=== PATIENT | male | born 1960 | race Caucasian/White ===

== ENCOUNTER 2018-07-11 13:41 | Inpatient (IN) ==
[2018-07-11] MEDS ORDERED: Ipratropium/Albuterol Neb 3 ML IH ONE (14:28)
[2018-07-11] MEDS ORDERED: methylPREDNISolone 125 MG/2 ML VIAL IVP ONE (14:29)
[2018-07-11] MEDS ORDERED: Isovue-370 500 ML BOTTLE IVP ONE ×2 (14:29→16:00)
[2018-07-11] MEDS ORDERED: 0.9 % Sodium Chloride 500 ML IVC ONE (14:31)
[2018-07-11] MEDS ORDERED: *HR* FentaNYL (PF) 100 MCG/2 ML VIAL IVP ONE (14:37)
--- NOTE | 2018-07-11 14:42 | Emergency Department Note ---
Disposition Clinical Impression: Weakness, Left arm weakness, Thrombocytopenia, Chinchilla's palsy, Mediastinal mass Pneumonia Qualifiers: Pneumonia type: due to unspecified organism Laterality: unspecified laterality Lung location: unspecified part of lung Qualified Code(s): J18.9 - Pneumonia, unspecified organism COPD (chronic obstructive pulmonary disease) Qualifiers: COPD type: unspecified COPD Qualified Code(s): J44.9 - Chronic obstructive pulmonary disease, unspecified Shoulder pain Qualifiers: Chronicity: unspecified Laterality: left Qualified Code(s): M25.512 - Pain in left shoulder Disposition: Admitted As Inpatient Condition: Fair Time of Disposition: 17:43 General Adult HPI - General Chief complaint: ED Weakness Stated complaint: "blood infection, bells palsy" Time Seen by Provider: 07/11/18 14:11 Source: patient, family Mode of arrival: wheelchair Limitations: no limitations Nursing Notes Reviewed: Yes Vital Signs Reviewed: Yes - History of Present Illness HPI Narrative: 58-year-old male with history of COPD, hypertension, arthritis with recent hospitalization for pneumonia and thrombocytopenia presents for evaluation of weakness. The stated chief complaint is blood infection however the patient does not have a prior history of positive blood cultures. Patient states he did have a recent admitted hospital course were he was diagnosed with possible pneu monia and was treated with antibiotics. Patient is also found to have thrombocytopenia of unknown etiology. Patient was complaining of arthralgias at that time. 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 Patient states since then his symptoms have not improved and is only worsened. States that he feels weak primarily in the legs as well as left upper extremity. Patient notes diffuse myalgias and pain primarily in the shoulders. Denies a prior history of strokes. Patient was recently taken off his Plavix as he does have known coronary artery disease. Patient states he has been sweating but denying any chest pain only complaining of cough and shortness of breath and shoulder pain. Pain Scale: 10 - Related Data Previous Rx's Medication Instructions Recorded Acetaminophen [Pain Reliever] 500 mg PO Q6H PRN #120 tablet 06/29/18 Albuterol Sulfate [Albuterol 2 puff IH Q4HR PRN #1 inhaler 06/29/18 Inhaler] Aspirin Enteric Coated [Aspirin EC] 81 mg PO DAILY #30 tablet. 06/29/18 Ipratropium/Albuterol Neb [Duoneb] 3 ml IH Q6H PRN #120 vial 06/29/18 Isosorbide MONOnitrate (24 HR) 30 mg PO DAILY #30 tab.er.24h 06/29/18 [Imdur] Lisinopril/Hydrochlorothiazide 1 tab PO DAILY #30 tablet 06/29/18 [Zestoretic 20-25 mg Tablet] Loratadine [Claritin] 10 mg PO DAILY #30 tablet 06/29/18 Metoprolol Tartrate 50 mg PO DAILY #30 tablet 06/29/18 Multivitamin [Daily Multiple 1 tab PO DAILY #30 tablet 06/29/18 Vitamin] Omeprazole [PriLOSEC] 20 mg PO DAILY #30 capsule.dr 06/29/18 Simvastatin [Zocor] 40 mg PO DAILY #30 tablet 06/29/18 Famciclovir 500 mg PO Q8H #21 tab 07/01/18 Allergies Allergy/AdvReac Type Severity Reaction Status Date / Time doxycycline AdvReac See Verified 07/11/18 13:53 Comments Penicillins AdvReac Hives Verified 07/11/18 13:53 Sulfa (Sulfonamide AdvReac NOSE BLEEDS Verified 07/11/18 13:53 Antibiotics) tetracycline [Tetracycline] AdvReac Difficulty Verified 07/11/18 13:53 Breathing All systems ED: reviewed and negative except as stated. Cardiovascular: Denies: chest pain Respiratory: Reports: cough, dyspnea Gastrointestinal: Denies: abdominal pain, nausea, vomiting Past Medical History - Past Medical History Source: patient Medical history: Reports: arthritis, COPD, hyperlipidemia, hypertension, other Surgical history: Reports: sinus surgery, tonsillectomy Psychiatric history: Reports: depression - Social History Smoking Status: Current every day smoker Smokeless Tobacco Status: No Alcohol use: Reports: none Drug use: Reports: none Physical Exam - General Limitations: no limitations General appearance: alert, other (Diaphoretic) - Head Head exam: atraumatic, normocephalic, normal inspection - Eye Eye exam: Present: normal appearance, PERRL, EOMI. Absent: nystagmus - ENT ENT exam: normal exam, normal oropharynx, mucous membranes moist - Expanded ENT Exam External ear exam: Present: normal external inspection Nose exam: negative: rhinorrhea Mouth exam: Present: normal external inspection Teeth exam: Present: normal inspection Throat exam: Present: normal inspection - Chest Chest inspection: Present: normal inspection, symmetric chest wall rise - Respiratory Respiratory exam: Present: wheezes, accessory muscle use, prolonged expiratory phase. Absent: respiratory distress - Cardiovascular Cardiovascular exam: Present: regular rate, normal rhythm. Absent: normal heart sounds - Abdominal Exam Abdominal exam: Present: soft, Non-Tender - Extremities Exam Extremities exam: Present: normal inspection, other (No crepitus the proximal Corky's. Patient has weakness of the left proximal arm.). Absent: pedal edema - Expanded Lower Extremity Exam Neurovascular/Tendon exam: Present: normal capillary refill - Back Exam Back exam: Present: normal inspection - Neurological Exam Neurological exam: Present: alert, oriented X3 - Expanded Neurological Exam Patient oriented to: Present: person, place, time Speech: Present: fluid speech Cranial nerves: EOM function (II, III, IV, ): Normal, facial sensation (V): Normal, facial palsy (VII): Abnormal Right, spinal accessory function (XI): Normal, tongue deviation (XII): Normal Motor strength - LUE: 4/5 Motor strength - RUE: 5/5 Motor strength - LLE: 5/5 Motor strength - RLE: 5/5 Coma Scale Eye Opening: Spontaneous Coma Scale Motor Response: Obeys Commands Coma Scale Verbal Response: Oriented Coma Scale Total: 15 - Skin Skin exam: Present: warm, intact, normal color, diaphoresis. Absent: rash Course Course Narrative: Patient seen and examined. Patient does have recent hospitalization. Patient d oes have evidence of Chinchilla's palsy on external exam however the patient also has other neuro symptoms including proximal left arm weakness. Patient will also get inflammatory markers and CT scan of the head injury of the neck and chest. Patient was not a stroke alert given time of onset of the symptoms of been over the past several weeks. Patient became in today because of progressed to the point where he has difficult to walking and ambulating. - Reevaluation(s) Reevaluation #1: Patient's elevated lactate and white count with productive cough we will treat for the most likely source of infection cover with empiric antibiotics until imaging resulted. Time: 17:01 Reevaluation #2: Patient seen and examined. Patient states his pain is improved. Patient's primary complaining of left shoulder pain. Awaiting CT imaging of the head and cervical spine. Ultimately I believe the patient will likely benefit from MRI of the head and cervical spine. Did discuss the possibility of an LP however the patient does not have any meningitis type symptoms. She was also notably thrombocytopenic during last hospitalization and is only slightly improved during this ED course. I do not believe that obtaining an LP at this time is warranted given the patient's history of recent thrombocytopenia. Time: 18:01 Reevaluation #3: Did update the patient as well as the hospital some of the CT findings that were formally released. Patient's CT does show some John however the patient does not have evidence of infection in his urine. Time: 18:55 - Consultations Consultation #1: I did speak with the [place] radiology guarding preliminary scans of the CT angiogram of the head as well as CT angiogram of the neck CT of the head. Appears be no acute abnormality. Patient was not given any aspirin use history of thrombocytopenia. Time: 18:26 Vital Signs Temperature 98.8 F 07/11/18 13:53 Pulse Rate 93 07/11/18 13:53 Respiratory Rate 18 07/11/18 13:53 Blood Pressure 127/82 07/11/18 13:53 O2 Sat by Pulse Oximetry 93 07/11/18 13:53 Temperature 98.8 F 07/11/18 13:53 Pulse Rate 79 07/11/18 17:30 Respiratory Rate 16 07/11/18 17:30 Blood Pressure 130/80 07/11/18 17:30 O2 Sat by Pulse Oximetry 94 07/11/18 17:30 Oxygen Delivery Oxygen Delivery Room Air Medical Decision Making - [facility] Narrative Medical decision making narrative: Patient presented for concerns of "blood infection" however the patient was recent blood cultures were negative. Patient has multiple complaints one of which including left upper shoulder weakness. Patient also states he felt weak in the legs and did note a fall earlier today. Patient does have a pretty significant recent history requiring oscillation for pneumonia as well as t hrombocytopenia requiring rheumatology as well as hematology consults. Patient's from cytopenia stabilizing slightly improved during the hospital course. Patient was treated with antibiotics. Patient states that he also was diagnosed with Chinchilla's palsy. 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 Patient was also having a cough and complaining of left shoulder pain with proximal muscle weakness. Patient had CT imaging of the chest as well as angios of the head and neck. It appeared to be no acute abnormalities of angios of the head and neck. Patient's CT of the chest did show some mediastinal mass concerning for infe ction versus inflammation and/or neoplasm. Recommended a PET scan. Patient symptoms are not necessarily consistent with any [employer] infection. Given the patient's history of trauma cytopenia LP was not obtained in the ED course. Patient did get aerosols and steroids given his history of COPD with cough based on the patient's lung exam. Patient was also started on broad-spectrum antibiotics given elevated white count lactate in the setting of recent hospitalization covering for presumed clinical pneumonia. Patient would likely benefit from further testing and MRI of the head and cervical spine. There is no concerns for deep tissue infection of the shoulder there is no significant erythema or crepitus noted. Patient does have reproducible muscle skeletal tenderness on exam. Patient's inflammatory markers are mildly elevated. CPK is normal. Patient is neurovascularly intact of the upper extremities. - Medical Records Medical records reviewed: Yes I reviewed the patient's medical records. Impressions: Technically sub-optimal due to poor echocardiographic windows. LVEF 60%. Normal LV chamber size, wall thickness and overall function. Mild segmental left ventricular systolic dysfunction. Grossly normal right ventricular structure and function. Mild aortic stenosis by Doppler. Mean gradient 16 mmHg. No pulmonary hypertension identified. - Lab Data Lab results reviewed: Yes I reviewed the patient's lab results. Result diagrams: 07/11/18 14:59 07/11/18 14:59 Lab Results 07/11/18 07/11/18 07/11/18 Range/Units 14:59 14:59 14:59 WBC (4.3-11.1) K/mcL RBC (4.19-5.50) M/mcL Hgb (12.9-16.9) g/dL Hct (37.5-50.1) % MCV (83.0-100.0) fL MCH (28.0-33.3) pg MCHC (31.6-35.5) g/dL RDW (11.5-14.5) % Plt Count (140-400) K/mcL MPV (9.4-12.4) fL Seg Neutrophils % % Band Neutrophils % (0-4) % Lymphocytes % % Monocytes % % Eosinophils % % Myelocytes % (0) % Promyelocytes % (0) % Blast Cells % (0) % Neutrophils # (1.6-8.9) K/mcL Lymphocytes # (0.6-4.6) K/mcL Monocytes # (0.0-1.3) K/mcL Eosinophils # (0.0-0.6) K/mcL Nucleated RBCs/100 WBC (0) /100 WBC Platelet Estimate (Normal) Immature Plt Fraction (1.1-6.1) % Smear Path Review ESR 4 (0-10) mm/hr PT 12.6 H (9.4-12.1) Seconds INR 1.1 Sodium (136-145) mEq/L Potassium (3.5-5.1) mEq/L Chloride (98-107) mEq/L Carbon Dioxide (23-29) mEq/L BUN (8-23) mg/dL Creatinine (0.70-1.30) mg/dL Est GFR ( Amer) (> 60) Est GFR (Non-Af Amer) (> 60) BUN/Creatinine Ratio (6-26) Glucose (70-105) mg/dL Calculated Osmolality (280-300) Lactic Acid 2.9 H (0.5-2.2) mmol/L Calcium (8.6-10.3) mg/dL Phosphorus (2.7-4.5) mg/dL Magnesium (1.6-2.6) mg/dL Total Bilirubin (0.3-1.0) mg/dL AST (13-39) Units/L ALT (7-52) Units/L Alkaline Phosphatase (34-104) Units/L Creatine Kinase (30-223) Units/L Troponin I (< 0.04) ng/mL C-Reactive Protein (Less than 10) mg/L Serum Total Protein (6.4-8.9) g/dL Albumin (3.5-5.7) g/dL Globulin (2.4-3.5) g/dL Albumin/Globulin Ratio (1.1-2.2) Lipase (11-82) Units/L Urine Color (Yellow) Urine Clarity (Clear) Urine pH (5.0-8.0) pH Units Ur Specific [place] (1.010-1.025) Urine Protein (Neg-Trace) mg/dL Urine Glucose (UA) (Normal) mg/dL Urine Ketones (Negative) mg/dL Urine Blood (Negative) Urine Nitrite (Negative) Urine Bilirubin (Negative) Urine Urobilinogen (Normal) mg/dL Ur Leukocyte Esterase (Negative) Urine Microscopic RBC (0-3) per hpf Urine Microscopic WBC (0-3) per hpf Ur Squamous Epith Cells (None-Few) per lpf Urine Bacteria (None-Few) per hpf Hyaline Casts (None-Few) per lpf Ur Culture Indicated? (NO) Urine Opiates Screen (Plidts=840) ng/mL Ur Barbiturates Screen (Wmhrci=090) ng/mL Ur Phencyclidine Scrn (Cutoff=25) ng/mL Ur Amphetamines Screen (Bypwff=6507) ng/mL U Benzodiazepines Scrn (Lznztk=442) ng/mL Urine Cocaine Screen (Cutoff= 300) ng/mL U Marijuana (THC) Screen (Cutoff = 50) ng/mL Ur Drug Screen Interp 07/11/18 07/11/18 07/11/18 Range/Units 14:59 14:59 17:30 WBC 12.0 H (4.3-11.1) K/mcL RBC 3.49 L (4.19-5.50) M/mcL Hgb 10.6 L (12.9-16.9) g/dL Hct 31.0 L (37.5-50.1) % MCV 88.8 (83.0-100.0) fL MCH 30.4 (28.0-33.3) pg MCHC 34.2 (31.6-35.5) g/dL RDW 14.8 H (11.5-14.5) % Plt Count 71 L (140-400) K/mcL MPV 9.0 L (9.4-12.4) fL Seg Neutrophils % 40.0 % Band Neutrophils % 16.0 H (0-4) % Lymphocytes % 14.0 % Monocytes % 8.0 % Eosinophils % 6.0 % Myelocytes % 8.0 H (0) % Promyelocytes % 4.0 H (0) % Blast Cells % 4.0 H (0) % Neutrophils # 6.7 (1.6-8.9) K/mcL Lymphocytes # 1.7 (0.6-4.6) K/mcL Monocytes # 1.0 (0.0-1.3) K/mcL Eosinophils # 0.7 H (0.0-0.6) K/mcL Nucleated RBCs/100 WBC 4.7 H (0) /100 WBC Platelet Estimate Decreased L (Normal) Immature Plt Fraction 2.4 (1.1-6.1) % Smear Path Review See Below ESR (0-10) mm/hr PT (9.4-12.1) Seconds INR Sodium 132 L (136-145) mEq/L Potassium 3.9 (3.5-5.1) mEq/L Chloride 92 L (98-107) mEq/L Carbon Dioxide 30 H (23-29) mEq/L BUN 25 H (8-23) mg/dL Creatinine 0.81 (0.70-1.30) mg/dL Est GFR ( Amer) > 60 (> 60) Est GFR (Non-Af Amer) > 60 (> 60) BUN/Creatinine Ratio 31 H (6-26) Glucose 91 (70-105) mg/dL Calculated Osmolality 278 L (280-300) Lactic Acid (0.5-2.2) mmol/L Calcium 9.7 (8.6-10.3) mg/dL Phosphorus 3.4 (2.7-4.5) mg/dL Magnesium 1.9 (1.6-2.6) mg/dL Total Bilirubin 0.9 (0.3-1.0) mg/dL AST 53 H (13-39) Units/L ALT 29 (7-52) Units/L Alkaline Phosphatase 70 (34-104) Units/L Creatine Kinase 71 (30-223) Units/L Troponin I < 0.03 (< 0.04) ng/mL C-Reactive Protein 41 H (Less than 10) mg/L Serum Total Protein 5.7 L (6.4-8.9) g/dL Albumin 3.9 (3.5-5.7) g/dL Globulin 1.8 L (2.4-3.5) g/dL Albumin/Globulin Ratio 2.2 (1.1-2.2) Lipase 11 (11-82) Units/L Urine Color Yellow (Yellow) Urine Clarity Clear (Clear) Urine pH 6.5 (5.0-8.0) pH Units Ur Specific [place] > 1.030 H (1.010-1.025) Urine Protein 30 H (Neg-Trace) mg/dL Urine Glucose (UA) Normal (Normal) mg/dL Urine Ketones Negative (Negative) mg/dL Urine Blood Negative (Negative) Urine Nitrite Negative (Negative) Urine Bilirubin Negative (Negative) Urine Urobilinogen Normal (Normal) mg/dL Ur Leukocyte Esterase Negative (Negative) Urine Microscopic RBC 0-3 (0-3) per hpf Urine Microscopic WBC 0-3 (0-3) per hpf Ur Squamous Epith Cells Moderate H (None-Few) per lpf Urine Bacteria None Seen (None-Few) per hpf Hyaline Casts None Seen (None-Few) per lpf Ur Culture Indicated? NO (NO) Urine Opiates Screen (Zmkqnu=184) ng/mL Ur Barbiturates Screen (Nuaifr=893) ng/mL Ur Phencyclidine Scrn (Cutoff=25) ng/mL Ur Amphetamines Screen (Zbjvxd=4798) ng/mL U Benzodiazepines Scrn (Mtphfc=900) ng/mL Urine Cocaine Screen (Cutoff= 300) ng/mL U Marijuana (THC) Screen (Cutoff = 50) ng/mL Ur Drug Screen Interp 07/11/18 Range/Units 17:30 WBC (4.3-11.1) K/mcL RBC (4.19-5.50) M/mcL Hgb (12.9-16.9) g/dL Hct (37.5-50.1) % MCV (83.0-100.0) fL MCH (28.0-33.3) pg MCHC (31.6-35.5) g/dL RDW (11.5-14.5) % Plt Count (140-400) K/mcL MPV (9.4-12.4) fL Seg Neutrophils % % Band Neutrophils % (0-4) % Lymphocytes % % Monocytes % % Eosinophils % % Myelocytes % (0) % Promyelocytes % (0) % Blast Cells % (0) % Neutrophils # (1.6-8.9) K/mcL Lymphocytes # (0.6-4.6) K/mcL Monocytes # (0.0-1.3) K/mcL Eosinophils # (0.0-0.6) K/mcL Nucleated RBCs/100 WBC (0) /100 WBC Platelet Estimate (Normal) Immature Plt Fraction (1.1-6.1) % Smear Path Review ESR (0-10) mm/hr PT (9.4-12.1) Seconds INR Sodium (136-145) mEq/L Potassium (3.5-5.1) mEq/L Chloride (98-107) mEq/L Carbon Dioxide (23-29) mEq/L BUN (8-23) mg/dL Creatinine (0.70-1.30) mg/dL Est GFR ( Amer) (> 60) Est GFR (Non-Af Amer) (> 60) BUN/Creatinine Ratio (6-26) Glucose (70-105) mg/dL Calculated Osmolality (280-300) Lactic Acid (0.5-2.2) mmol/L Calcium (8.6-10.3) mg/dL Phosphorus (2.7-4.5) mg/dL Magnesium (1.6-2.6) mg/dL Total Bilirubin (0.3-1.0) mg/dL AST (13-39) Units/L ALT (7-52) Units/L Alkaline Phosphatase (34-104) Units/L Creatine Kinase (30-223) Units/L Troponin I (< 0.04) ng/mL C-Reactive Protein (Less than 10) mg/L Serum Total Protein (6.4-8.9) g/dL Albumin (3.5-5.7) g/dL Globulin (2.4-3.5) g/dL Albumin/Globulin Ratio (1.1-2.2) Lipase (11-82) Units/L Urine Color (Yellow) Urine Clarity (Clear) Urine pH (5.0-8.0) pH Units Ur Specific [place] (1.010-1.025) Urine Protein (Neg-Trace) mg/dL Urine Glucose (UA) (Normal) mg/dL Urine Ketones (Negative) mg/dL Urine Blood (Negative) Urine Nitrite (Negative) Urine Bilirubin (Negative) Urine Urobilinogen (Normal) mg/dL Ur Leukocyte Esterase (Negative) Urine Microscopic RBC (0-3) per hpf Urine Microscopic WBC (0-3) per hpf Ur Squamous Epith Cells (None-Few) per lpf Urine Bacteria (None-Few) per hpf Hyaline Casts (None-Few) per lpf Ur Culture Indicated? (NO) Urine Opiates Screen Negative (Kzyvgf=922) ng/mL Ur Barbiturates Screen Negative (Buxwvf=498) ng/mL Ur Phencyclidine Scrn Negative (Cutoff=25) ng/mL Ur Amphetamines Screen Negative (Ryflqn=9349) ng/mL U Benzodiazepines Scrn Negative (Pbezjt=745) ng/mL Urine Cocaine Screen Negative (Cutoff= 300) ng/mL U Marijuana (THC) Screen Negative (Cutoff = 50) ng/mL Ur Drug Screen Interp See Below - Radiology Data Radiology results reviewed: Yes I reviewed the patient's radiology results. Chest X-Ray 07/11/18 14:27 IMPRESSION: No radiographic evidence of acute cardiopulmonary disease. D/ / Lionel Hermosillo / Lionel Hermosillo Interpreting Provider: Lionel Hermosillo Chest CTA 07/11/18 14:29 IMPRESSION: No evidence of pulmonary embolism. Redemonstration of enlarged AP window lymph node, similar when compared to the previous exams. That is, however, new when compared to more remote examinations. Although that could be reactive, neoplasm is also a concern. Consider further evaluation with PET-CT. There is infiltration of the mediastinal fat, especially adjacent to that lymph node. Again, that could be inflammatory infectious, follow-up to resolution is necessary. There is a new heterogeneous enhancement of the kidneys, with marked perinephric fat stranding. Correlate with clinical evidence of urinary tract infection/pyelonephritis. D/ / Luis Day MD / Luis Day MD Interpreting Provider: Luis Day MD Chest X-Ray 07/11/18 14:27 IMPRESSION: No radiographic evidence of acute cardiopulmonary disease. D/ / Lionel Hermosillo / Lionel Hermosillo Interpreting Provider: Lionel Hermosillo Chest CTA 07/11/18 14:29 IMPRESSION: No evidence of pulmonary embolism. Redemonstration of enlarged AP window lymph node, similar when compared to the previous exams. That is, however, new when compared to more remote examinations. Although that could be reactive, neoplasm is also a concern. Consider further evaluation with PET-CT. There is infiltration of the mediastinal fat, especially adjacent to that lymph node. Again, that could be inflammatory infectious, follow-up to resolution is necessary. There is a new heterogeneous enhancement of the kidneys, with marked perinephric fat stranding. Correlate with clinical evidence of urinary tract infection/pyelonephritis. D/ / Luis Day MD / Luis Day MD Interpreting Provider: Luis Day MD Neck CTA 07/11/18 14:29 IMPRESSION: No acute intracranial abnormality. No flow limiting stenosis or branch occlusion identified within the head or neck. Incidentally noted pulmonary emphysema and evidence of chronic granulomatous disease. D/ / Henry Agarwal MD / Henry Agarwal MD Interpreting Provider: Henry Agarwal MD Head CTA 07/11/18 16:00 IMPRESSION: No acute intracranial abnormality. No flow limiting stenosis or branch occlusion identified within the head or neck. Incidentally noted pulmonary emphysema and evidence of chronic granulomatous disease. D/ / Henry Agarwal MD / Henry Agarwal MD Interpreting Provider: Herny Agarwal MD - EKG Data EKG #1 EKG attestation: Yes I reviewed and interpreted this EKG. EKG shows normal: sinus rhythm Rate: normal Rhythm: NSR T wave inversions noted in: III, aVR Interpretation: no acute changes, nonspecific ST-T wave changes S.B.A.R. - S.[email or web address].AMirza Situation: Demographics Background: Presenting Complaint Assessment: Vital Signs, Course and respsone to treatment, Patient/Family Expectation Recommendation: Barrier(s) to disposition, Recommendation based on pending studies, treatments, or consults S.B.A.RRosendo Report Given to: Hospitalist Jelani Yoder Time: 18:27 Attestation Statement - Attestation Attestation: Patient was seen with resident physician. I reviewed the history, physical, assessment and plan, and agree with the findings. I also personally evaluated this patient and had [id number] time with this patient. 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 Patient states he was admitted to the hospital for a blood infection of some kind. Also possibly with pneumonia. Says he was diagnosed with Chinchilla's palsy. He says that his symptoms especially in his left upper extremity have gotten worse. He is getting increasingly weak. He has a facial droop on the right side. Family's concern that he may have had a mini stroke worsening his symptoms. He was taken off Plavix at some point recently. He denies fevers or chills. No chest pain. No abdominal pain nausea vomiting or diarrhea. Review of systems as above mid are negative. Physical exam vital signs initially were stable. ENT patient has droop of the right side of the face. Otherwise unremarkable. Heart regular rhythm and rate. Lungs demonstrate bilateral wheezes. Abdomen is soft and nontender. Extremities are largely unremarkable. Neurologically he is alert and oriented D does have the facial droop and he is got weakness in the left upper extremity when compared to the right. Legs are okay bilaterally. Skin no rashes. Psych normal. ED course. We will do a full stroke workup on the patient. We will also provide some steroids. This could be an exacerbation of Chinchilla's. It may also be related to stroke or other issues. Workup revealed continuation of pneumonia. Mediastinal mass. He is obvious he got continuation of Chinchilla's palsy. He had a variety of electrolyte abnormalities. He was given IV antibiotics. We contacted the hospitalist service they agreed to accept the patient for admi ssion for increasing weakness and pneumonia. Remainder stroke workup did not show any acute findings. Patient will be admitted to the hospital for additional evaluation and treatment. Agree with resident physician assessment and plan. NIH Stroke Scale - Level of Consciousness LOC: Alert - LOC Questions LOC Questions: Answers both correctly - LOC Commands LOC Commands: Performs both correctly - Best Gaze Best Gaze: Normal - Visual Visual: No visual loss - Facial Palsy Facial Palsy: Complete absence of movement in upper and lower face - Motor Arms Motor Arm-Left: No effort against gravity, limb falls to bed, some movement Motor Arm-Right: No drift for 10 seconds - Motor Legs Motor Leg-Left: No drift for 5 seconds Motor Leg-Right: No drift for 5 seconds - Limb Ataxia Limb Ataxia: Absent of affected limb too weak to perform exam - Sensory Sensory: Normal - Best Language Best Language: No aphasia - Dysarthria Dysarthria: Mild, slurs some words - Extinction and Inattention Extinction and Inattention: Normal - NIHSS Total Score NIHSS Total Score: 7
[2018-07-11 15:10] LABS: Hemoglobin 10.6 g/dL (12.9-16.9); Immature Platelets 2.4 % (1.1-6.1); Mean Corpuscular HGB Conc 34.2 g/dL (31.6-35.5); Mean Corpuscular Hemoglobin 30.4 pg (28.0-33.3); Mean Corpuscular Volume 88.8 fL (83.0-100.0); Nucleated Red Blood Cells 4.7 /100 WBC (0); Platelet Count 71 K/mcL (140-400); Red Blood Count 3.49 M/mcL (4.19-5.50); Red Cell Distribution Width 14.8 % (11.5-14.5)
[2018-07-11 15:27] LABS: INR 1.1; Prothrombin Time 12.6 Seconds (9.4-12.1)
[2018-07-11] MEDS ORDERED: 0.9 % Sodium Chloride 1,000 ML IVC ONE (15:31)
[2018-07-11 15:32] LABS: Alanine Aminotransferase 29 Units/L (7-52); Albumin 3.9 g/dL (3.5-5.7); Albumin/Globulin Ratio 2.2 (1.1-2.2); Alkaline Phosphatase 70 Units/L (34-104); Aspartate Amino Transferase 53 Units/L (13-39); BUN/Creatinine Ratio 31 (6-26); Bilirubin,Total 0.9 mg/dL (0.3-1.0); Blood Urea Nitrogen 25 mg/dL (8-23); C-Reactive Protein 41 mg/L (Less than 10); Calcium 9.7 mg/dL (8.6-10.3); Carbon Dioxide 30 mEq/L (23-29); Chloride 92 mEq/L (98-107); Creatine Kinase 71 Units/L (30-223); Globulin 1.8 g/dL (2.4-3.5); Glucose 91 mg/dL (70-105); Lipase 11 Units/L (11-82); Magnesium 1.9 mg/dL (1.6-2.6); Osmolality,Calculated 278 (280-300); Phosphorous 3.4 mg/dL (2.7-4.5); Potassium 3.9 mEq/L (3.5-5.1); Sodium 132 mEq/L (136-145); Total Protein 5.7 g/dL (6.4-8.9); Troponin I < 0.03 ng/mL (< 0.04); eGFR For Non-African Americans > 60 (> 60)
[2018-07-11 15:55] LABS: Eosinophils # 0.7 K/mcL (0.0-0.6); Lymphocytes # 1.7 K/mcL (0.6-4.6); Neutrophils # 6.7 K/mcL (1.6-8.9)
[2018-07-11 15:56] LABS: Platelet Estimate Decreased (Normal)
[2018-07-11] MEDS ORDERED: *HR* HYDROmorphone (PF) 1 MG/ML SYRINGE IVP ONE (17:39)
[2018-07-11] MEDS: Cefepime HCl 1,000 MG in Water for inj. (sterile) 20 ML 10 ML IVP SCH (17:44)
[2018-07-11 18:07] LABS: Bacteria,Urine None Seen per hpf (None-Few); Bilirubin,Urine Negative (Negative); Blood,Urine Negative (Negative); Clarity,Urine Clear (Clear); Color,Urine Yellow (Yellow); Glucose,Urine (UA) Normal (Normal); Hyaline Casts,Urine None Seen per lpf (None-Few); Ketones,Urine Negative (Negative); Leukocyte Esterase,Urine Negative (Negative); Nitrite,Urine Negative (Negative); PH,Urine 6.5 pH Units (5.0-8.0); Protein,Urine 30 mg/dL (Neg-Trace); RBC,Urine 0-3 per hpf (0-3); Specific Gravity,Urine > 1.030 (1.010-1.025); Squamous Epithelial Cell,Urine Moderate per lpf (None-Few); Urobilinogen,Urine Normal (Normal); WBC,Urine 0-3 per hpf (0-3)
[2018-07-11 18:11] LABS: Amphetamine Screen,Urine Negative ng/mL (Cutoff=1000); Barbiturate Screen,Urine Negative ng/mL (Cutoff=200); Benzodiazepines Screen,Urine Negative ng/mL (Cutoff=200); Cannabinoid Screen,Urine Negative ng/mL (Cutoff = 50); Cocaine Screen,Urine Negative ng/mL (Cutoff= 300); Opiate Screen,Urine Negative ng/mL (Cutoff=300); Phencyclidine Screen,Urine Negative ng/mL (Cutoff=25)
[2018-07-11] MEDS ORDERED: Naloxone 0.4 MG/ML INJ IVP PRN (20:56)
[2018-07-11] MEDS: 0.9 % Sodium Chloride 1,000 ML IVC SCH (21:31)
[2018-07-11] MEDS: *HR* Heparin 5,000 UNIT/ML VIAL SQ SCH (23:00)
--- NOTE | 2018-07-11 23:13 | Internal Med History&Physical ---
<Regan Curran - Last Filed: 07/12/18 03:19> Date of Encounter: 07/12/18 Time of Encounter: 21:00 Internal Medicine - H&P: HPI Chief complaint: Bilateral shoulder pain, left sided weakness Admitted From: Emergency Dept Plans for Post Hospital Care: Home History of present illness: Mr. Lobo is a 58 year old male with PMHx of COPD, HTN, arthritis who presents to ED with complaints of bilateral shoulder pain and weakness in his left upper extremity. He was recently diagnosed with Chinchilla's palsy, with right facial drooping and given prednisone and famciclovir, and had a recent admission for pneumonia with thrombocytopenia as well. Vitals in ED were unremarkable. Labs showed WBC 12, Hgb 10.6, platelets 71, Na 132, CRP 41, lactate 2.9, AST 53. Tox screen was negative. UA showed protein and high specific gravity. CXR showed no acute abnormalities. CTA of chest showed no PE, enlarged lymph node (similar to previous but new from more remote studies), infiltration of mediastinal fat. Neck CTA negative for flow-limiting stenosis. Head CTA showed no acute abnormalities. Patient given pain medicine and empiric antibiotics in ED. Patient is resting in bed on my exam and still complaints of bilateral shoulder pain. Shoulder pain started about 11 days ago, is constant but worse with movement, dull, with radiation to both hands. A few days later, he developed left upper extremity weakness. He isn't able to extend his wrist and he is barely able to extend his elbow. He denies trauma. He has numbness and tingling in both hands. He denies weakness or numbness/tingling in his lower ex tremities. He denies SPENCER, CP, SOB, abdominal pain, n/v, changes in bowel/bladder habits. Past Med Surg Social Fam HX - Past Medical History Medical history: arthritis, COPD, hyperlipidemia, hypertension, other Additional medical history: bells palsy Psychiatric history: depression - Past Surgical History Surgical History: sinus surgery, tonsillectomy Additional surgical history: coronary stents - Social History Smoking Status: Current every day smoker Smokeless Tobacco Status: No Alcohol use: none Drug use: none - Family History Father Living Status: Age at : 61 Cause of : cancer Hx Family Cancer: Yes Mother Age: 80 Living Status: Still Living Hx Family Cardiac Disorders: Yes Hx Family Cancer: Yes Hx Family Endocrine Disorder: Yes (DM) Internal Medicine - H&P: Meds Acetaminophen [Pain Reliever] 500 mg PO Q6H PRN #120 tablet 06/29/18 [Rx] Albuterol Sulfate [Albuterol Inhaler] 2 puff IH Q4HR PRN #1 inhaler 06/29/18 [Rx] Aspirin Enteric Coated [Aspirin EC] 81 mg PO DAILY #30 tablet. 06/29/18 [Rx] Ipratropium/Albuterol Neb [Duoneb] 3 ml IH Q6H PRN #120 vial 06/29/18 [Rx] Isosorbide MONOnitrate (24 HR) [Imdur] 30 mg PO DAILY #30 tab.er.24h 06/29/18 [Rx] Lisinopril/Hydrochlorothiazide [Zestoretic 20-25 mg Tablet] 1 tab PO DAILY #30 tablet 06/29/18 [Rx] Loratadine [Claritin] 10 mg PO DAILY #30 tablet 06/29/18 [Rx] Metoprolol Tartrate 50 mg PO DAILY #30 tablet 06/29/18 [Rx] Multivitamin [Daily Multiple Vitamin] 1 tab PO DAILY #30 tablet 06/29/18 [Rx] Omeprazole [PriLOSEC] 20 mg PO DAILY #30 capsule. 06/29/18 [Rx] Simvastatin [Zocor] 40 mg PO DAILY #30 tablet 06/29/18 [Rx] Famciclovir 500 mg PO Q8H #21 tab 07/01/18 [Rx] Allergy/AdvReac Type Severity Reaction Status Date / Time doxycycline AdvReac See Verified 07/11/18 13:53 Comments Penicillins AdvReac Hives Verified 07/11/18 13:53 Sulfa (Sulfonamide AdvReac NOSE BLEEDS Verified 07/11/18 13:53 Antibiotics) tetracycline [Tetracycline] AdvReac Difficulty Verified 07/11/18 13:53 Breathing All Systems PM: A 10-system review of systems was performed and is negative for pertinent findings except as documented above in the HPI. - Constitutional Vitals: Temp Pulse Resp BP Pulse Ox 98 F 81 16 129/72 92 07/11/18 20:27 07/11/18 20:27 07/11/18 20:27 07/11/18 20:27 07/11/18 20:27 General appearance: Present: mild distress (from shoulder pain) Exam: Resting in bed. A&O x3. Mild distress from shoulder pain. Weakness in left arm with inability to extend wrist, and minimal ability to extend at elbow. Right- sided facial droop from Chinchilla's palsy. - Respiratory Respiratory exam: Present: wheezes. Absent: chest wall tenderness, respiratory distress - Cardiovascular Cardiovascular exam: Present: RRR - GI/Abdominal GI/Abdominal exam: Present: normal bowel sounds, soft. Absent: distended, tenderness - Extremities Exam Extremities exam: Present: normal capillary refill, tenderness (in shoulders, arms, hands L>R), warm, radial pulses palpable and symmetrical. Absent: calf tenderness, pedal edema - Expanded Upper Extremities Exam Shoulder exam: Present: tenderness (bilateral). Absent: full ROM (left sh oulder) Upper Arm exam: Present: tenderness (bilateral). Absent: crepitus, swelling Elbow exam: Absent: full ROM (decreased extension of left arm) Forearm wrist exam: Present: tenderness (bilateral). Absent: crepitus, swelling Hand wrist exam: Present: tenderness (bilateral). Absent: full ROM (no extension of left wrist) - Neurological Exam Neurological exam: Present: alert, oriented X3, facial droop (right sided involving upper and lower face). Absent: strengths equal and symetr throughout - Psychiatric Psychiatric exam: Present: normal affect, normal mood - Skin Skin exam: Present: dry, warm Internal Med - H&P Results - Labs CBC & Chem 7: 07/12/18 01:19 07/12/18 01:19 Labs: Short CBC 07/11/18 Range/Units 14:59 WBC 12.0 H (4.3-11.1) K/mcL Hgb 10.6 L (12.9-16.9) g/dL Hct 31.0 L (37.5-50.1) % Plt Count 71 L (140-400) K/mcL Neutrophils # 6.7 (1.6-8.9) K/mcL BMP 07/11/18 14:59 Sodium 132 L Potassium 3.9 Chloride 92 L Carbon Dioxide 30 H BUN 25 H Creatinine 0.81 Glucose 91 Calcium 9.7 Cardiac Enzymes 07/11/18 Range/Units 14:59 Troponin I < 0.03 (< 0.04) ng/mL Liver Function 07/11/18 Range/Units 14:59 Total Bilirubin 0.9 (0.3-1.0) mg/dL AST 53 H (13-39) Units/L ALT 29 (7-52) Units/L Alkaline Phosphatase 70 (34-104) Units/L Albumin 3.9 (3.5-5.7) g/dL Urine 07/11/18 Range/Units 17:30 Urine Color Yellow (Yellow) Urine Clarity Clear (Clear) Urine pH 6.5 (5.0-8.0) pH Units Ur Specific [place] > 1.030 H (1.010-1.025) Urine Protein 30 H (Neg-Trace) mg/dL Urine Glucose (UA) Normal (Normal) mg/dL - Impressions ITS Impressions Chest X-Ray 07/11/18 14:27 IMPRESSION: No radiographic evidence of acute cardiopulmonary disease. D/ / Lionel Hermosillo / Lionel Hermosillo Interpreting Provider: Lionel Hermosillo Chest CTA 07/11/18 14:29 IMPRESSION: No evidence of pulmonary embolism. Redemonstration of enlarged AP window lymph node, similar when compared to the previous exams. That is, however, new when compared to more remote examinations. Although that could be reactive, neoplasm is also a concern. Consider further evaluation with PET-CT. There is infiltration of the mediastinal fat, especially adjacent to that lymph node. Again, that could be inflammatory infectious, follow-up to resolution is necessary. There is a new heterogeneous enhancement of the kidneys, with marked perinephric fat stranding. Correlate with clinical evidence of urinary tract infection/pyelonephritis. D/ / Luis Day MD / Luis Day MD Interpreting Provider: Luis Day MD Neck CTA 07/11/18 14:29 IMPRESSION: No acute intracranial abnormality. No flow limiting stenosis or branch occlusion identified within the head or neck. Incidentally noted pulmonary emphysema and evidence of chronic granulomatous disease. D/ / Henry Agarwal MD / Henry Agarwal MD Interpreting Provider: Henry Agarwal MD Head CTA 07/11/18 16:00 IMPRESSION: No acute intracranial abnormality. No flow limiting stenosis or branch occlusion identified within the head or neck. Incidentally noted pulmonary emphysema and evidence of chronic granulomatous disease. D/ / Henry Agarwal MD / Henry Agarwal MD Interpreting Provider: Henry Agarwal MD - Assessment and Plan (1) Shoulder pain Current Visit: Yes Status: Acute Assessment and plan: Patient with bilateral shoulder pain for past 9-10 days that radiates down both arms with tingling in fingers Denies trauma Patient has history of arthritis ESR normal, CRP elevated at 41 Patient given dilaudid and fentanyl in ED Neurology consulted for left arm weakness May consider imaging of cervical/thoracic region to rule out nerve impingement Toradol 30 mg IV every 6 hours as needed Qualifiers: Chronicity: unspecified Laterality: left Qualified Code(s): M25.512 - Pain in left shoulder (2) Left arm weakness Current Visit: Yes Status: Acute Assessment and plan: Patient with left upper extremity weakness for past 9-10 days Unable to extend wrist, minimal extension at elbow joint, weakness in flexion/extension/abduction at shoulder joint CTA head negative for acute ischemic changes CTA neck negative for flow-limiting stenosis Ordered Brain MRI Consulted neurology (3) Mediastinal mass Current Visit: Yes Status: Acute Assessment and plan: CTA chest showed enlarged lymph node Similar to previous exams but new from more remote imaging Reactive vs neoplasm Patient has thrombocytopenia and was supposed to see heme/onc as outpatient Will consult hematology/oncology to evaluate (4) Chinchilla's palsy Current Visit: Yes Status: Acute Assessment and plan: 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 Started on prednisone taper and famciclovir Still has residual weakness in right face Head CTA negative for acute abnormalities Patient on methylprednisolone for COPD exacerbation Neuro has been consulted for left UE weakness (5) Elevated lactic acid level Current Visit: Yes Status: Acute Assessment and plan: Lactic acid 2.9 > 2.4 Also with mildly elevated WBC of 12, but patient was recently on prednisone Given empiric antibiotics in ED Patient has a productive cough and was recently treated for pneumonia CXR shows no acute abnormality CTA chest not overly concerning for pneumonia, does show some infiltration in mediastinal fat UA not suspicious for UTI Will give fluid hydration On azithromycin for COPD exacerbation Repeat lactic acid in AM Consulted ID for concern of underlying infectious process of unclear etiology (6) Thrombocytopenia Current Visit: Yes Status: Acute Assessment and plan: Platelets of 71 Increased from prior admissions in 30s, but patient has been on prednisone recently Was supposed to have appointment with hematology/oncology as outpatient, but was admitted to hospital Will consult hem/onc On previous admission, rheumatology was consulted and ordered several labs Patient is supposed to see rheum as an outpatient, may consider calling to let him know he's admitted again with thrombocytopenia to see if he wants to see him here vs keeping outpatient appointment (7) COPD exacerbation Current Visit: Yes Status: Acute Assessment and plan: Patient not short of breath but wheezing diffusely on exam Saturating at 93 % on room air Duonebs and IV methylprednisolone Continue azithromycin (8) Hypertension Current Visit: No Status: Chronic Assessment and plan: BP 127/82 Continue home medications Qualifiers: Hypertension type: essential hypertension Qualified Code(s): I10 - Essential (primary) hypertension (9) Hyperlipidemia Current Visit: No Status: Chronic Assessment and plan: Continue home medications Qualifiers: Hyperlipidemia type: unspecified Qualified Code(s): E78.5 - Hyperlipidemia, unspecified (10) GERD (gastroesophageal reflux disease) Current Visit: No Status: Chronic Assessment and plan: Continue home medication Qualifiers: Esophagitis presence: esophagitis presence not specified Qualified Code(s): K21.9 - Gastro-esophageal reflux disease without esophagitis (11) DVT prophylaxis Current Visit: No Status: Acute Assessment and plan: Subcutaneous heparin - Time Spent With Patient Total time spent is greater than 50% in coordination of care (as documented) at patient's floor/unit and/or counseling patient: <Winston Mckee - Last Filed: 07/12/18 07:25> Date of Encounter: 07/11/18 Internal Medicine - H&P: HPI History of present illness: Mr. Lobo is a 58 year old male All Systems PM: A 10-system review of systems was performed and is negative for pertinent findings except as documented above in the HPI. - Constitutional Vitals: Temp Pulse Resp BP Pulse Ox 98.4 F 84 18 151/82 91 07/12/18 03:13 07/12/18 03:13 07/12/18 04:45 07/12/18 03:13 07/12/18 04:45 Internal Med - H&P Results - Labs CBC & Chem 7: 07/12/18 01:19 07/12/18 01:19 Labs: Short CBC 07/11/18 07/12/18 Range/Units 14:59 01:19 WBC 12.0 H 11.4 H (4.3-11.1) K/mcL Hgb 10.6 L 10.4 L (12.9-16.9) g/dL Hct 31.0 L 30.5 L (37.5-50.1) % Plt Count 71 L 66 L (140-400) K/mcL Neutrophils # 6.7 6.6 (1.6-8.9) K/mcL BMP 07/11/18 07/12/18 14:59 01:19 Sodium 132 L 133 L Potassium 3.9 3.8 Chloride 92 L 97 L Carbon Dioxide 30 H 26 BUN 25 H 30 H Creatinine 0.81 0.71 Glucose 91 212 H Calcium 9.7 9.0 Cardiac Enzymes 07/11/18 Range/Units 14:59 Troponin I < 0.03 (< 0.04) ng/mL Liver Function 07/11/18 07/12/18 Range/Units 14:59 01:19 Total Bilirubin 0.9 0.6 (0.3-1.0) mg/dL AST 53 H 56 H (13-39) Units/L ALT 29 29 (7-52) Units/L Alkaline Phosphatase 70 67 (34-104) Units/L Albumin 3.9 3.8 (3.5-5.7) g/dL Urine 07/11/18 Range/Units 17:30 Urine Color Yellow (Yellow) Urine Clarity Clear (Clear) Urine pH 6.5 (5.0-8.0) pH Units Ur Specific [place] > 1.030 H (1.010-1.025) Urine Protein 30 H (Neg-Trace) mg/dL Urine Glucose (UA) Normal (Normal) mg/dL - Impressions ITS Impressions Chest X-Ray 07/11/18 14:27 IMPRESSION: No radiographic evidence of acute cardiopulmonary disease. D/ / Lionel Hermosillo / Lionel Hermosillo Interpreting Provider: Lionel Hermosillo Chest CTA 07/11/18 14:29 IMPRESSION: No evidence of pulmonary embolism. Redemonstration of enlarged AP window lymph node, similar when compared to the previous exams. That is, however, new when compared to more remote examinations. Although that could be reactive, neoplasm is also a concern. Consider further evaluation with PET-CT. There is infiltration of the mediastinal fat, especially adjacent to that lymph node. Again, that could be inflammatory infectious, follow-up to resolution is necessary. There is a new heterogeneous enhancement of the kidneys, with marked perinephric fat stranding. Correlate with clinical evidence of urinary tract infection/pyelonephritis. D/ / Luis Day MD / Luis Day MD Interpreting Provider: Luis Day MD Neck CTA 07/11/18 14:29 IMPRESSION: No acute intracranial abnormality. No flow limiting stenosis or branch occlusion identified within the head or neck. Incidentally noted pulmonary emphysema and evidence of chronic granulomatous disease. D/ / Henry Agarwal MD / Henry Agarwal MD Interpreting Provider: Henry Agarwal MD Head CTA 07/11/18 16:00 IMPRESSION: No acute intracranial abnormality. No flow limiting stenosis or branch occlusion identified within the head or neck. Incidentally noted pulmonary emphysema and evidence of chronic granulomatous disease. D/ / Henry Agarwal MD / Henry Agarwal MD Interpreting Provider: Henry Agarwal MD - Assessment and Plan (1) Hypertension Current Visit: No Status: Chronic Qualifiers: Hypertension type: essential hypertension Qualified Code(s): I10 - Essential (primary) hypertension (2) Thrombocytopenia Current Visit: Yes Status: Acute (3) COPD exacerbation Current Visit: Yes Status: Acute (4) DVT prophylaxis Current Visit: No Status: Acute (5) Left arm weakness Current Visit: Yes Status: Acute (6) Chinchilla's palsy Current Visit: Yes Status: Acute (7) Shoulder pain Current Visit: Yes Status: Acute Qualifiers: Chronicity: unspecified Laterality: left Qualified Code(s): M25.512 - Pain in left shoulder (8) Mediastinal mass Current Visit: Yes Status: Acute (9) Elevated lactic acid level Current Visit: Yes Status: Acute (10) Hyperlipidemia Current Visit: No Status: Chronic Qualifiers: Hyperlipidemia type: unspecified Qualified Code(s): E78.5 - Hyperlipidemia, unspecified (11) GERD (gastroesophageal reflux disease) Current Visit: No Status: Chronic Qualifiers: Esophagitis presence: esophagitis presence not specified Qualified Code(s): K21.9 - Gastro-esophageal reflux disease without esophagitis - Time Spent With Patient Total time spent is greater than 50% in coordination of care (as documented) at patient's floor/unit and/or counseling patient: - Attending Attestation I performed a history of physical examination of the patient and discussed his management with the resident. I reviewed the resident's note and agree with the documented plan of care. Patient is a 58 year old male with PMHx of COPD, HTN, arthritis who presents to ED with complaints of bilateral shoulder pain and weakness in his left upper extremity. He was recently diagnosed with Chinchilla's palsy, with right facial drooping and given prednisone and famciclovir, and was recently admitted for evaluation of pneumonia and thrombocytopenia. On assessment patient has obvious evidence of right facial paresis with sensation intact. Notable left upper extremity weakness. Lower extremity muscle strength intact. Notable wheezing bilaterally on lung examination. Patient denies any fever, chills, nausea, vomiting or diarrhea. Labs showed WBC 12, Hgb 10.6, platelets 71, Na 132, CRP 41, lactate 2.9, AST 53. Tox screen was negative. UA showed protein and high specific gravity. CXR showed no acute abnormalities. CTA of chest showed no PE, enlarged lymph node (similar to previous but new from more remote studies), infiltration of me diastinal fat. Neck CTA negative for flow-limiting stenosis. Head CTA showed no acute abnormalities. Patient given pain medicine and empiric antibiotics in ED. Patient had thorough workup for rheumatological and infectious disease workup during previous hospitalization with no significant findings. Patient's thrombocytopenia appears to have rebounded slightly. Etiology of the patient's left upper extremity weakness, shoulder pain in the setting of his Chinchilla's palsy is on unclear. We will check CPK. We will obtain MRI of the brain. Consult to neurology. Consider touching base with rheumatology for follow-up on their preliminary laboratory workup. Will consult oncology for further assessment of enlarged AP mediastinal lymph node concerning for a possible neoplastic etiology. Continue empiric antibiotics and follow up cultures. Continue supportive fluids. We will additionally treat for possible COPD exacerbation.
[2018-07-11] MEDS: MethylPREDNISolone 40 MG/ML VIAL IVP SCH (23:23)
[2018-07-11] MEDS: Azithromycin 500 MG in D5% in Water 250 ML IVPB SCH (23:23)
[2018-07-11] MEDS: Ipratropium/Albuterol Neb 3 ML IH SCH (23:25)
[2018-07-12 01:36] LABS: Hemoglobin 10.4 g/dL (12.9-16.9); Mean Corpuscular Volume 88.7 fL (83.0-100.0); Red Cell Distribution Width 14.8 % (11.5-14.5)
[2018-07-12 01:37] LABS: Hematocrit 30.5 % (37.5-50.1); Immature Platelets 2.5 % (1.1-6.1); Mean Corpuscular HGB Conc 34.1 g/dL (31.6-35.5); Mean Corpuscular Hemoglobin 30.2 pg (28.0-33.3); Mean Platelet Volume 9.5 fL (9.4-12.4); Nucleated Red Blood Cells 2.1 /100 WBC (0); Red Blood Count 3.44 M/mcL (4.19-5.50)
[2018-07-12 01:40] LABS: Platelet Count 66 K/mcL (140-400)
[2018-07-12 01:53] LABS: INR 1.1; Prothrombin Time 12.4 Seconds (9.4-12.1)
[2018-07-12 01:54] LABS: Alanine Aminotransferase 29 Units/L (7-52); Albumin 3.8 g/dL (3.5-5.7); Albumin/Globulin Ratio 2.1 (1.1-2.2); Alkaline Phosphatase 67 Units/L (34-104); Aspartate Amino Transferase 56 Units/L (13-39); BUN/Creatinine Ratio 42 (6-26); Bilirubin,Total 0.6 mg/dL (0.3-1.0); Blood Urea Nitrogen 30 mg/dL (8-23); Carbon Dioxide 26 mEq/L (23-29); Chloride 97 mEq/L (98-107); Globulin 1.8 g/dL (2.4-3.5); Glucose 212 mg/dL (70-105); Osmolality,Calculated 288 (280-300); Phosphorous 5.4 mg/dL (2.7-4.5); Potassium 3.8 mEq/L (3.5-5.1); Sodium 133 mEq/L (136-145); Total Protein 5.6 g/dL (6.4-8.9); eGFR For Non-African Americans > 60 (> 60)
[2018-07-12 01:56] LABS: Activated Partial Thrombo Time 21.5 Seconds (26.0-36.0)
[2018-07-12 02:34] LABS: Basophils # 0.2 K/mcL (0.0-0.2); Lymphocytes # 2.5 K/mcL (0.6-4.6); Monocytes # 1.6 K/mcL (0.0-1.3); Neutrophils # 6.6 K/mcL (1.6-8.9); Platelet Estimate Decreased (Normal)
[2018-07-12 02:35] LABS: Anisocytosis 1+ (Not Present); Polychromasia 1+ (Not Present); Reactive Lymphocytes Present (Not Present)
[2018-07-12] MEDS: Ipratropium/Albuterol Neb 3 ML IH SCH ×4 (04:44→22:01)
[2018-07-12] MEDS: Cefepime HCl 1,000 MG in Water for inj. (sterile) 20 ML 10 ML IVP SCH (05:29)
[2018-07-12] MEDS: MethylPREDNISolone 40 MG/ML VIAL IVP SCH ×3 (05:30→17:51)
[2018-07-12] MEDS ORDERED: 0.9 % Sodium Chloride 500 ML IVC ONE (07:05)
--- NOTE | 2018-07-12 08:22 | Internal Med Progress Note ---
<Ramos Rodriguez - Last Filed: 07/12/18 14:38> Hospitalist Progress Note - Encounter Date of Encounter: 07/12/18 - Exam Vitals: Temp Pulse Resp BP Pulse Ox 97.9 F 91 18 155/84 96 07/12/18 10:36 07/12/18 10:36 07/12/18 10:36 07/12/18 10:36 07/12/18 10:36 - Assessment and Plan (1) Respiratory failure Current Visit: Yes Status: Acute (2) Hypertension Current Visit: No Status: Chronic (3) Thrombocytopenia Current Visit: Yes Status: Acute (4) COPD exacerbation Current Visit: Yes Status: Acute (5) DVT prophylaxis Current Visit: No Status: Acute (6) Left arm weakness Current Visit: Yes Status: Acute (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 (8) Shoulder pain Current Visit: Yes Status: Acute (9) Mediastinal mass Current Visit: Yes Status: Acute (10) Elevated lactic acid level Current Visit: Yes Status: Acute (11) Hyperlipidemia Current Visit: No Status: Chronic (12) GERD (gastroesophageal reflux disease) Current Visit: No Status: Chronic (13) Tobacco abuse Current Visit: No Status: Chronic - Time Spent with Patient Total time spent is greater than 50% in coordination of care (as documented) at patient's floor/unit and/or counseling patient: Internal Medicine: Result - Labs CBC & Chem 7: 07/12/18 12:08 07/12/18 11:30 Labs: Short CBC 07/11/18 07/12/18 07/12/18 Range/Units 14:59 01:19 12:08 WBC 12.0 H 11.4 H 11.2 H (4.3-11.1) K/mcL Hgb 10.6 L 10.4 L 9.4 L (12.9-16.9) g/dL Hct 31.0 L 30.5 L 27.8 L (37.5-50.1) % Plt Count 71 L 66 L 60 L (140-400) K/mcL Neutrophils # 6.7 6.6 9.0 H (1.6-8.9) K/mcL BMP 07/11/18 07/12/18 07/12/18 14:59 01:19 11:30 Sodium 132 L 133 L 136 Potassium 3.9 3.8 3.4 L Chloride 92 L 97 L 102 Carbon Dioxide 30 H 26 28 BUN 25 H 30 H 26 H Creatinine 0.81 0.71 0.68 L Glucose 91 212 H 167 H Calcium 9.7 9.0 8.8 Cardiac Enzymes 07/11/18 07/12/18 Range/Units 14:59 11:30 Troponin I < 0.03 < 0.03 (< 0.04) ng/mL Liver Function 07/11/18 07/12/18 Range/Units 14:59 01:19 Total Bilirubin 0.9 0.6 (0.3-1.0) mg/dL AST 53 H 56 H (13-39) Units/L ALT 29 29 (7-52) Units/L Alkaline Phosphatase 70 67 (34-104) Units/L Albumin 3.9 3.8 (3.5-5.7) g/dL Urine 07/11/18 Range/Units 17:30 Urine Color Yellow (Yellow) Urine Clarity Clear (Clear) Urine pH 6.5 (5.0-8.0) pH Units Ur Specific [place] > 1.030 H (1.010-1.025) Urine Protein 30 H (Neg-Trace) mg/dL Urine Glucose (UA) Normal (Normal) mg/dL - ABG Interpretation ABG results: ABG ABG pH 7.44 pH Units (7.32-7.45) 07/12/18 10:59 ABG pCO2 37 mmHg (35-45) 07/12/18 10:59 ABG pO2 79 mmHg (85-104) L 07/12/18 10:59 ABG O2 Saturation 96 % (95-98) 07/12/18 10:59 PT/INR, D-dimer PT 12.4 Seconds (9.4-12.1) H 07/12/18 01:19 - Impressions Impressions Chest X-Ray 07/11/18 14:27 IMPRESSION: No radiographic evidence of acute cardiopulmonary disease. D/ / Lionel Hermosillo / Lionel Hermosillo Interpreting Provider: Lionel Hermosillo Chest CTA 07/11/18 14:29 IMPRESSION: No evidence of pulmonary embolism. Redemonstration of enlarged AP window lymph node, similar when compared to the previous exams. That is, however, new when compared to more remote examinations. Although that could be reactive, neoplasm is also a concern. Consider further evaluation with PET-CT. There is infiltration of the mediastinal fat, especially adjacent to that lymph node. Again, that could be inflammatory infectious, follow-up to resolution is necessary. There is a new heterogeneous enhancement of the kidneys, with marked perinephric fat stranding. Correlate with clinical evidence of urinary tract infection/pyelonephritis. D/ / Luis Day MD / Luis Day MD Interpreting Provider: Luis Day MD Neck CTA 07/11/18 14:29 IMPRESSION: No acute intracranial abnormality. No flow limiting stenosis or branch occlusion identified within the head or neck. Incidentally noted pulmonary emphysema and evidence of chronic granulomatous disease. D/ / Henry Agarwal MD / Henry Agarwal MD Interpreting Provider: Henry Agarwal MD Head CTA 07/11/18 16:00 IMPRESSION: No acute intracranial abnormality. No flow limiting stenosis or branch occlusion identified within the head or neck. Incidentally noted pulmonary emphysema and evidence of chronic granulomatous disease. D/ / Henry Agarwal MD / Henry Agarwal MD Interpreting Provider: Henry Agarwal MD Brain MRI 07/11/18 23:02 IMPRESSION: 1. No acute infarct or acute intracranial process identified. 2. Scattered foci of white matter signal abnormality which are nonspecific but may represent mild chronic small vessel ischemic changes. 3. Diffuse decreased T1 signal intensity throughout the bone marrow. This is a nonspecific finding however correlation with CBC is suggested as a chronic anemia or less likely marrow replacing process could result in this appearance. D/ / 07/12/2018 08:47:51 Cruz Campbell MD / marsha Interpreting Provider: Cruz Campbell MD Chest X-Ray 07/12/18 10:39 IMPRESSION: 1. Increased pulmonary vascular congestion. D/ / Geoff Ceja MD / Geoff Ceja MD Interpreting Provider: Geoff Ceja MD Consult Discharge Plan - Plan Referrals: Pam Campbell DO [Resident] - 07/19/18 10:20 am - Attending Attestation I examined this patient and my medical decision-making was reviewed with the Res ident Physician on 07/12/18. I agree with the documented findings, disposition and treatment plan as described except to the extent set forth below. Mr Lobo is currently admitted for resp failure and concern for acute leukemia. He remains moderate to high risk due to potential for worsening respiratory and clinical status. Mr Lobo is developing progressive dyspnea. He has received a lot of fluids. No fever or chills. Having pain in L shoulder and difficulty moving arm. Ap preciate neuro input. Path smear shows blasts (4%). Exam alert Mod resp distress at rest. Mucus membranes dry Heart reg and tachy Diffuse end exp wheeze bilaterally with rhonchi heard Abd soft Paralysis R face Unable to life L shoulder due to pain I/P 1. Resp failure - ? COPD (already on steroids, aerosols) versus fluids. CXR, ABG, EKG ordered. Lasix given 2. Possible acute leukemia - has blasts on peripheral smear. Heme onc to see. Needs bone marrow. 3. [place] Palsy 4. L shoulder pain Appreciate neuro and heme and ID input. Further diagnoses and plan as above. Move to second floor. Most likely will need bipap soon <Amadeo Beyer - Last Filed: 07/12/18 19:56> Hospitalist Progress Note - Encounter Date of Encounter: 07/12/18 Time of Encounter: 09:30 - Subjective Interval History: The patient is seen and examined at bedside. He appears to be acutely distressed, and is having difficulty breathing at this time. He says that this started overnight, and that it is getting worse. He says that it started specifically when he got a breathing treatment and now he feels as though he has to cough something up but cannot. He continues to have weakness in his left side, and he says that this also seems to be getting worse. - Exam Vitals: Temp Pulse Resp BP Pulse Ox 98.4 F 84 18 151/82 91 07/12/18 03:13 07/12/18 03:13 07/12/18 04:45 07/12/18 03:13 07/12/18 04:45 Exam: Gen: Vitals noted. Moderately distressed. Eyes: anicteric sclerae, moist conjunctivae; no lid-lag; Pupils equal and reactive to light HENT: Atraumatic; oropharynx clear with moist mucous membranes and no mucosal ulcerations; normal hard and soft palate Neck: Trachea midline; supple, no thyromegaly or lymphadenopathy Cardiac: RRR, no murmur, +S1/S2 Pulmonary: Diffuse wheezing noted b/l on exam Abdomen: soft, nontender, no guarding. No masses or hepatosplenomegaly MSK: ROM intact, no joint swelling noted Extremities: 1+ BLE edema, nontender calf, no cyanosis or clubbing Skin: Normal temperature, turgor and texture; no rash, ulcers or subcutaneous nodules Neuro: Left sided facial droop and lid lag noted. Left upper extremity strength 2/5. Left lower extremity strength 4/5. Psych: Appropriate mood and behavior. A&Ox3 - Assessment and Plan (1) Left arm weakness Current Visit: Yes Status: Acute Assessment and Plan: Left arm weakness in the setting of Chinchilla's palsy Etiology is unclear at this time Patient did have had CTA as well as neck CTA which were not significant for any findings MRI of the brain did not demonstrate anything acute, chronic white matter changes are noted Neurology consult on board, recommend MR of C-spine, T-spine Plan for LP in the morning Workup for autoimmune inflammatory neuropathies as his paraneoplastic in setting of possible acute leukemia Continue to watch for polyneuropathy involving diaphragm and concern for respira tory distress Supportive care, intubated if necessary (2) Acute respiratory failure Current Visit: Yes Status: Acute Assessment and Plan: Acute hypoxic respiratory failure Patient did have significant amounts of fluid, possibly vascular congestion Chest x-ray does demonstrate vascular congestion Patient is on high-dose IV steroids at this time for COPD exacerbation I did give the patient 1 dose of IV Lasix which did seem to help I suspect that a good amount of this may be due to significant muscle weakness in the setting of polyneuropathy of unknown origin Patient is pulling good tidal volumes at this time per respiratory therapy Chest CT is not significant for any consolidation or edematous process Consult to pulmonology for opinion (3) Thrombocytopenia Current Visit: Yes Status: Acute Assessment and Plan: Platelets of 71 on admission, appears to be continuing from previous admission The patient also presents with leukocytosis and bands as well as blasts and promyelocytes Continue to have concerns that this may be an acute leukemia Hematology was consulted previously and he plan for outpatient follow-up Unclear at this time if acute leukemia or blast crisis is present, appreciate oncology recommendation Plan for bone marrow biopsy in the morning 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 Started on prednisone taper and famciclovir as an outpatient Still has residual weakness in right face Head CTA negative for acute abnormalities Patient on methylprednisolone for COPD exacerbation Neuro has been consulted for left UE weakness (5) COPD exacerbation Current Visit: Yes Status: Suspected Assessment and Plan: Patient rapidly developing acute shortness of breath and difficulty breathing Additionally, diffusely wheezy on exam and ABG does demonstrate hypoxia We will continue to support with oxygen and BiPAP as needed Duonebs and IV methylprednisolone Continue azithromycin (6) Hypertension Current Visit: No Status: Chronic Assessment and Plan: BP 127/82 Continue home medications (7) Shoulder pain Current Visit: Yes Status: Acute Assessment and Plan: Patient with bilateral shoulder pain for past 9-10 days that radiates down both arms with tingling in fingers Denies trauma Patient has history of arthritis ESR normal, CRP elevated at 41 Patient given dilaudid and fentanyl in ED Neurology consulted for left arm weakness May consider imaging of cervical/thoracic region to rule out nerve impingement Toradol 30 mg IV every 6 hours as needed (8) Mediastinal mass Current Visit: Yes Status: Acute Assessment and Plan: CTA chest showed enlarged lymph node Similar to previous exams but new from more remote imaging Reactive vs neoplasm Patient has thrombocytopenia and was supposed to see heme/onc as outpatient Will consult hematology/oncology to evaluate Pulmonology was also consulted, consider bronchoscopy for biopsy if necessary (9) Elevated lactic acid level Current Visit: Yes Status: Acute Assessment and Plan: Lactic acid 2.9 > 2.4 Also with mildly elevated WBC of 12, but patient was recently on prednisone Given empiric antibiotics in ED Patient has a productive cough and was recently treated for pneumonia CXR shows no acute abnormality CTA chest not overly concerning for pneumonia, does show some infiltration in m ediastinal fat UA not suspicious for UTI On azithromycin for COPD exacerbation Repeat lactic acid in AM Consulted ID for concern of underlying infectious process of unclear etiology I do not suspect that this is sepsis, high risk for fluid overload We will hold further fluids at this time (10) Hyperlipidemia Current Visit: No Status: Chronic Assessment and Plan: Continue home medications (11) GERD (gastroesophageal reflux disease) Current Visit: No Status: Chronic Assessment and Plan: Continue home medication (12) DVT prophylaxis Current Visit: No Status: Acute Assessment and Plan: Subcutaneous heparin - Time Spent with Patient Total time spent is greater than 50% in coordination of care (as documented) at patient's floor/unit and/or counseling patient: Internal Medicine: Result - Labs CBC & Chem 7: 07/12/18 12:08 07/12/18 11:30 Labs: Short CBC 07/11/18 07/12/18 Range/Units 14:59 01:19 WBC 12.0 H 11.4 H (4.3-11.1) K/mcL Hgb 10.6 L 10.4 L (12.9-16.9) g/dL Hct 31.0 L 30.5 L (37.5-50.1) % Plt Count 71 L 66 L (140-400) K/mcL Neutrophils # 6.7 6.6 (1.6-8.9) K/mcL BMP 07/11/18 07/12/18 14:59 01:19 Sodium 132 L 133 L Potassium 3.9 3.8 Chloride 92 L 97 L Carbon Dioxide 30 H 26 BUN 25 H 30 H Creatinine 0.81 0.71 Glucose 91 212 H Calcium 9.7 9.0 Cardiac Enzymes 07/11/18 Range/Units 14:59 Troponin I < 0.03 (< 0.04) ng/mL Liver Function 07/11/18 07/12/18 Range/Units 14:59 01:19 Total Bilirubin 0.9 0.6 (0.3-1.0) mg/dL AST 53 H 56 H (13-39) Units/L ALT 29 29 (7-52) Units/L Alkaline Phosphatase 70 67 (34-104) Units/L Albumin 3.9 3.8 (3.5-5.7) g/dL Urine 07/11/18 Range/Units 17:30 Urine Color Yellow (Yellow) Urine Clarity Clear (Clear) Urine pH 6.5 (5.0-8.0) pH Units Ur Specific [place] > 1.030 H (1.010-1.025) Urine Protein 30 H (Neg-Trace) mg/dL Urine Glucose (UA) Normal (Normal) mg/dL - ABG Interpretation ABG results: PT/INR, D-dimer PT 12.4 Seconds (9.4-12.1) H 07/12/18 01:19 - Impressions Impressions Chest X-Ray 07/11/18 14:27 IMPRESSION: No radiographic evidence of acute cardiopulmonary disease. D/ / Lionel Hermosillo / Lionel Hermosillo Interpreting Provider: Lionel Hermosillo Chest CTA 07/11/18 14:29 IMPRESSION: No evidence of pulmonary embolism. Redemonstration of enlarged AP window lymph node, similar when compared to the previous exams. That is, however, new when compared to more remote examinations. Although that could be reactive, neoplasm is also a concern. Consider further evaluation with PET-CT. There is infiltration of the mediastinal fat, especially adjacent to that lymph node. Again, that could be inflammatory infectious, follow-up to resolution is necessary. There is a new heterogeneous enhancement of the kidneys, with marked perinephric fat stranding. Correlate with clinical evidence of urinary tract infection/pyelonephritis. D/ / Luis Day MD / Luis Day MD Interpreting Provider: Luis Day MD Neck CTA 07/11/18 14:29 IMPRESSION: No acute intracranial abnormality. No flow limiting stenosis or branch occlusion identified within the head or neck. Incidentally noted pulmonary emphysema and evidence of chronic granulomatous disease. D/ / Henry Agarwal MD / Henry Agarwal MD Interpreting Provider: Henry Agarwal MD Head CTA 07/11/18 16:00 IMPRESSION: No acute intracranial abnormality. No flow limiting stenosis or branch occlusion identified within the head or neck. Incidentally noted pulmonary emphysema and evidence of chronic granulomatous disease. D/ / Henry Agarwal MD / Henry Agarwal MD Interpreting Provider: Henry Agarwal MD <Ramos Rodriguez - Last Filed: 07/12/18 14:38> (1) Respiratory failure Qualifiers: Chronicity: acute Respiratory failure complication: hypoxia Qualified Code(s): J96.01 - Acute respiratory failure with hypoxia (2) Hypertension Qualifiers: Hypertension type: essential hypertension Qualified Code(s): I10 - Essential (primary) hypertension (8) Shoulder pain Qualifiers: Chronicity: acute Laterality: left Qualified Code(s): M25.512 - Pain in left shoulder (11) Hyperlipidemia Qualifiers: Hyperlipidemia type: mixed hyperlipidemia Qualified Code(s): E78.2 - Mixed hyperlipidemia (12) GERD (gastroesophageal reflux disease) Qualifiers: Esophagitis presence: esophagitis presence not specified Qualified Code(s): K21.9 - Gastro-esophageal reflux disease without esophagitis <Amadeo Beyer - Last Filed: 07/12/18 19:56> (2) Acute respiratory failure Qualifiers: Respiratory failure complication: hypoxia Qualified Code(s): J96.01 - Acute respiratory failure with hypoxia (6) Hypertension Qualifiers: Hypertension type: essential hypertension Qualified Code(s): I10 - Essential (primary) hypertension (7) Shoulder pain Qualifiers: Chronicity: acute Laterality: left Qualified Code(s): M25.512 - Pain in left shoulder (10) Hyperlipidemia Qualifiers: Hyperlipidemia type: mixed hyperlipidemia Qualified Code(s): E78.2 - Mixed hyperlipidemia (11) GERD (gastroesophageal reflux disease) Qualifiers: Esophagitis presence: esophagitis presence not specified Qualified Code(s): K21.9 - Gastro-esophageal reflux disease without esophagitis
[2018-07-12] MEDS: *HR* Heparin 5,000 UNIT/ML VIAL SQ SCH ×2 (09:12→16:25)
[2018-07-12] MEDS: 0.9 % Sodium Chloride 1,000 ML IVC SCH (10:12)
--- NOTE | 2018-07-12 10:12 | Neurology - Consult Note ---
<Josep Frazier - Last Filed: 07/12/18 16:58> Date of Encounter: 07/12/18 Time of Encounter: 10:02 Assessment and Plan (1) Left arm weakness Current Visit: Yes Status: Acute Left arm weakness with left shoulder pain, and bilateral leg weakness Symptoms began approximately 3 weeks ago following an upper respiratory infection and have been getting progressively worse Multifocal sx with weakness of the left tricep, deltoid and proximal leg musculature bilaterally He is also having pain in B/L shoulders; left greater than right MRI brain without acute ischemic changes Of note, the patient was found to have Anemia, and thrombocytopenia with blasts on CBC, MRI brain with T1 signal abnormalities; consider marrow replacing process - Primary team scheduled bone marrow bx tomorrow HIV 06/27/18 - non reactive, SAIGE 06/28/18 none detected, CRP 41, CK 71, LYME negative On exam today the patient has wrist drop of the left wrist and is displaying weakness in the left deltoid, left bicep and tricep as well as bilateral leg musculature. Additionally, he is having some pain with range of motion involving the left deltoid. Sensory is intact and patient is able to differentiate between dull and sharp sensation. 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 Acute spinal pathology thought to be less likely given the presence of diminished reflexes, absence of UMN findings and laterality of symptoms, although, in the early phase reflexes may remain intact. His exam shows lower motor neuron findings with diminished reflexes; further, sx are multifocal involving primarily the left deltoid, tricep, and wrist. He is also displaying weakness of the proximal musculature of the bilateral legs but distally his strength is intact. Consider a peripheral autoimmune inflammatory neuropathy, CIDP, MMN, vs paraneoplasm. Further w/u needed and follows below. PLAN: MR C Spine, MR T Spine to eval for an evaluate for an evolving TM or other acute spinal cord pathology Recommend ANTI hu, Anti RA, Anti VGCC, Anti GM1, Anti mg to r/o paraneoplasm; these labs are a send out c/s IR for XR guided LP CSF Routine and cytology, CSF JESSICA to evaluate for inflammatory etiology Serum protein electrophoresis, immunoelectrophoresis ID, Pulm and hematology oncology seeing in consultation; recommendations appreciated c/w medical and supportive care (2) Chinchilla's palsy Current Visit: Yes Status: Acute Diagnosis in the ED 12 days ago Treated with steroids and famciclovir Patient reporting right mouth droop and right eye ptosis improving MR brain obtained negative for acute ischemia or acute intracranial abnormality History of Present Illness Chief complaint: Left arm weakness HPI: Mr. Lobo is a 58 year old male with a history of arthritis, COPD, HLD and HTN. He is recently diagnosed with Chinchilla's palsy and sent home on a course of prednisone and famciclovir. He was also recently admitted and treated for multifocal pneumonia and was found to have thrombocytopenia. He represents to [facility] with complaints of generalized weakness and focal weakness and pain in the left shoulder radiating down the left arm. Weakness is more pronounced with triceps extension, no obvious biceps weakness reported. He also notes limitations to range of motion and pain with shoulder adduction, abduction and triceps extension. He is reporting tenderness to gentle palpation of the left before meals joint and this was confirmed with manual exam. In regards to the generalized weakness he states this is ongoing for a few weeks has been getting progressively worse. This morning he was found to be diaphoretic and fatigued appearing. He has had a CT of the chest which shows no acute pulmonary process but did reveal lymph node enlargement. CTA of head and neck is without acute intracranial abnormality or flow-limiting stenosis. MRI of the brain with no acute infarct or acute intracranial process. There is diffusely decreased T1 signal intensity throughout the bone marrow and today his CBC continues to show anemia and blasts. These findings are concerning for a marrow replacing process. Past Med Surg Social Fam HX - Past Medical History Medical history: arthritis, COPD, hyperlipidemia, hypertension, other Additional medical history: bells palsy Psychiatric history: depression - Past Surgical History Surgical History: sinus surgery, tonsillectomy Additional surgical history: coronary stents - Social History Smoking Status: Current every day smoker Smokeless Tobacco Status: No Alcohol use: none Drug use: none - Family History Father Living Status: Age at : 61 Cause of : cancer Hx Family Cancer: Yes Mother Age: 80 Living Status: Still Living Hx Family Cardiac Disorders: Yes Hx Family Cancer: Yes Hx Family Endocrine Disorder: Yes (DM) Medications and Allergies Acetaminophen [Pain Reliever] 500 mg PO Q6H PRN #120 tablet 06/29/18 [Rx] Albuterol Sulfate [Albuterol Inhaler] 2 puff IH Q4HR PRN #1 inhaler 05/15/19 [Rx] Aspirin Enteric Coated [Aspirin EC] 81 mg PO DAILY #30 tablet. 06/29/18 [Rx] Ipratropium/Albuterol Neb [Duoneb] 3 ml IH Q6H PRN #120 vial 06/29/18 [Rx] Isosorbide MONOnitrate (24 HR) [Imdur] 30 mg PO DAILY #30 tab.er.24h 06/29/18 [Rx] Lisinopril/Hydrochlorothiazide [Zestoretic 20-25 mg Tablet] 1 tab PO DAILY #30 tablet 06/29/18 [Rx] Loratadine [Claritin] 10 mg PO DAILY #30 tablet 06/29/18 [Rx] Metoprolol Tartrate 50 mg PO DAILY #30 tablet 06/29/18 [Rx] Multivitamin [Daily Multiple Vitamin] 1 tab PO DAILY #30 tablet 06/29/18 [Rx] Omeprazole [PriLOSEC] 20 mg PO DAILY #30 capsule. 06/29/18 [Rx] Simvastatin [Zocor] 40 mg PO DAILY #30 tablet 06/29/18 [Rx] Famciclovir 500 mg PO Q8H #21 tab 07/01/18 [Rx] Allergy/AdvReac Type Severity Reaction Status Date / Time doxycycline AdvReac See Verified 07/11/18 13:53 Comments Penicillins AdvReac Hives Verified 07/11/18 13:53 Sulfa (Sulfonamide AdvReac NOSE BLEEDS Verified 07/11/18 13:53 Antibiotics) tetracycline [Tetracycline] AdvReac Difficulty Verified 07/11/18 13:53 Breathing All Systems: The remainder of the systems were reviewed and are negative Review of Systems: REVIEW OF SYSTEMS GENERAL: Positive for fatigue, malaise, decreased activity tolerance NEUROLOGIC: Negative for any blurry vision, blind spots, double vision, facial asymmetry, dysphagia, dysarthria, hemiparesis, hemisensory deficits, vertigo, ataxia, seizures, paralysis, tingling, numbness, unilateral weakness or numbness/tingling Positive- pain in left AC joint with weakness of left arm and pain radiating down left arm CARDIAC: Negative for any chest pain, peripheral edema. PULMONARY: Positive- shortness of breath, wheezing MUSCULOSKELETAL: Posititive- loss of strength of left arm and overall decreased activity tolerance RHEUMATOLOGIC: Positive-left acromioclavicular joint pain HEMATOLOGIC: Positive- recent frequent infections Physical Examination - Vital Signs Vital Signs: Initial Vital Signs Temp Pulse Resp BP Pulse Ox 98.8 F 93 18 127/82 93 07/11/18 13:53 07/11/18 13:53 07/11/18 13:53 07/11/18 13:53 07/11/18 13:53 - Exam Exam: Examination: General Examination: *CONSTITUTIONAL: Alert and oriented x3, moderate respiratory distress *GENERAL APPEARANCE OF PATIENT ill appearing elderly male *EYES: pupils equal, round, reactive to light and accommodation, conjunctiva clear without masses or ulcerations, fundi normal. *CARDIOVASCULAR no peripheral edema, distal temperature normal, dorsalis pedis pulses normal. see vitals PULMONARY: course I/E wheezing; primary team notified Musculoskeletal: *GAIT AND STATION deferred *ASSESSMENT OF MUSCLE STRENGTH IN THE UPPER AND LOWER EXTREMITIES right deltoid, bicep, tricep, foundry supervisor strength, bilateral hip flexors ,anterior tibialis, dorsoflexion of the foot 5/5. Left deltoid, & tricep 2/5 strength with left wrist drop; pain with tricep extension and with attempt at shoulder adduction and abduction unable to adduct or abduct, right bicep and foundry supervisor strength 4/5, *MUSCLE TONE IN THE UPPER AND LOWER EXTREMITIES normal. No abnormal movements, fasciculations or atrophy identified. Neurological: *ORIENTATION to person, situation, time and place *RECURRENT AND REMOTE MEMORY intact *ATTENTION AND CONCENTRATION are normal *LANGUAGE FUNCTION no significant aphasia or dysarthia was noted. *FUND OF KNOWLEDGE aware of current events, past history, vocabulary *MENTAL attention span and concentration normal. *CN II optic fundi were normal, no papilledema noted. *CN III,IV, PERRLA extraocular eye movements were full, no nystagmus. Right eye ptosis present *CN V shows normal sensation and jaw opens asymmetrically with right mouth droop; recent diagnosis of Chinchilla's palsy *CN VII shows abnormal facial movement; right mouth droop with right eye ptosis upper and lower bilaterally. *CN VIII shows no significant hearing loss on exam *CN IX,,X palate elevated symmetrically *CN XI asymmetrical strength in the sternocleidomastoid muscles with right SCM stronger than left, asymmetrical shoulder shrugging. *CN XII tongue protruded in the midline, with normal strength and movement. *SENSORY EXAMINATION light touch intact *REFLEXES: deep tendon reflexes were diminished diffusely, no pathological reflexes were noted. *CEREBELLAR TESTING normal finger to nose with right arm, abnormal with left due to arm weakness *PAIN LEVEL 4/10 left shoulder radiating into left arm; dull ache wors e with range of motion & flexion Results - Laboratory Findings CBC and BMP: 07/12/18 12:08 07/12/18 11:30 Abnormal lab findings: Abnormal lab results WBC 11.4 K/mcL (4.3-11.1) H 07/12/18 01:19 RBC 3.44 M/mcL (4.19-5.50) L 07/12/18 01: Hgb 10.4 g/dL (12.9-16.9) L 07/12/18 01: Hct 30.5 % (37.5-50.1) L 07/12/18: RDW 14.8 % (11.5-14.5) H 07/12/18 01:19 Plt Count 66 K/mcL (140-400) L 07/12/18 01:19 MPV 9.0 fL (9.4-12.4) L 07/11/18 14:59 16.0 % (0-4) H 07/11/18 14:59 2.0 % (0) H 07/12/18 01:19 8.0 % (0) H 07/11/18 14:59 4.0 % (0) H 07/11/18 14:59 2.0 % (0) H 07/12/18 01:19 1.6 K/mcL (0.0-1.3) H 07/12/18 01:19 0.7 K/mcL (0.0-0.6) H 07/11/18 14:59 Nucleated RBCs/100 WBC 2.1 /100 WBC (0) H 07/12/18 01:19 Present (Not Present) A 07/12/18 01:19 Decreased (Normal) L 07/12/18 01:19 1+ (Not Present) A 07/12/18 01:19 1+ (Not Present) A 07/12/18 01:19 PT 12.4 Seconds (9.4-12.1) H 07/12/18 01:19 APTT 21.5 Seconds (26.0-36.0) L 07/12/18 01:19 Sodium 133 mEq/L (136-145) L 07/12/18 01:19 Chloride 97 mEq/L (98-107) L 07/12/18 01:19 Carbon Dioxide 30 mEq/L (23-29) H 07/11/18 14:59 BUN 30 mg/dL (8-23) H 07/12/18 01:19 42 (6-26) H 07/12/18 01:19 Glucose 212 mg/dL (70-105) H 07/12/18 01:19 278 (280-300) L 07/11/18 14:59 Lactic Acid 2.4 mmol/L (0.5-2.2) H 07/12/18 07:06 Phosphorus 5.4 mg/dL (2.7-4.5) H 07/12/18 01:19 AST 56 Units/L (13-39) H 07/12/18 01:19 41 mg/L (Less than 10) H 07/11/18 14:59 5.6 g/dL (6.4-8.9) L 07/12/18 01:19 1.8 g/dL (2.4-3.5) L 07/12/18 01:19 Ur Specific Waldron > 1.030 (1.010-1.025) H 07/11/18 17:30 30 mg/dL (Neg-Trace) H 07/11/18 17:30 Ur Squamous Epith Cells Moderate per lpf (None-Few) H 07/11/18 17:30 - Diagnostic Findings Additional findings: MR/MR head/brain wo con IMPRESSION: 1. No acute infarct or acute intracranial process identified. 2. Scattered foci of white matter signal abnormality which are nonspecific but may represent mild chronic small vessel ischemic changes. 3. Diffuse decreased T1 signal intensity throughout the bone marrow. This is a nonspecific finding however correlation with CBC is suggested as a chronic anemia or less likely marrow replacing process could result in this appearance. CT/CT angio head IMPRESSION: No acute intracranial abnormality. No flow limiting stenosis or branch occlusion identified within the head or neck. Incidentally noted pulmonary emphysema and evidence of chronic granulomatous disease. CT/CT stroke alert head wo con IMPRESSION: No acute intracranial abnormality. Consult Discharge Plan - Plan Referrals: Pam Campbell DO [Resident] - 07/19/18 10:20 am <Amadoe Marquez - Last Filed: 07/12/18 17:42> Date of Encounter: 07/12/18 Assessment and Plan (1) Left arm weakness Current Visit: Yes Status: Acute I have personally performed a [id number] assessment of the patient and have reviewed the PA/PRIVATE INVESTIGATOR SURVEILLANCE note. My impressions are as follows: I agree with the assessment of the CMP as stated above. It seems that with the deficits present was examination were dealing with some underlying process resulting in low motor neuron weakness which is widespread and multifocal including cranial nerve involvement. My leading thoughts would be that we are dealing with either an inflammatory, or underlying neoplastic process resulting in a paraneoplastic syndrome. AIDP, CIDP, multifocal , motor neuropathy, can all be either idiopathic or secondary to underlying malignancies. Autoimmune factors should also be considered as well as infectious. Further recommendations will be made pending the outcome of these tests pending. I look forward to the thoughts of other consultants on this case as well. (2) Chinchilla's palsy Current Visit: Yes Status: Acute History of Present Illness HPI: The chart was reviewed, the patient was seen and examined along with the CLAIMS COLLECTOR. I agree with his documentation of the history of present illness as stated above. All Systems: The remainder of the systems were reviewed and are negative Review of Systems: The balance of the systems review is negative. Physical Examination - Vital Signs Vital Signs: Initial Vital Signs Temp Pulse Resp BP Pulse Ox 98.8 F 93 18 127/82 93 07/11/18 13:53 07/11/18 13:53 07/11/18 13:53 07/11/18 13:53 07/11/18 13:53 - Exam Exam: I have personally performed a [id number] assessment of the patient and have reviewed the PA/PRIVATE INVESTIGATOR SURVEILLANCE note. My impressions are as follows: I agree with the neurologic examination is documented above. Results - Laboratory Findings CBC and BMP: 07/12/18 12:08 07/12/18 11:30 Abnormal lab findings: Abnormal lab results WBC 11.2 K/mcL (4.3-11.1) H 07/12/18 12:08 RBC 3.08 M/mcL (4.19-5.50) L 07/12/18 12:08 Hgb 9.4 g/dL (12.9-16.9) L 07/12/18 12:08 Hct 27.8 % (37.5-50.1) L 07/12/18 12:08 RDW 14.8 % (11.5-14.5) H 07/12/18 12:08 Plt Count 60 K/mcL (140-400) L 07/12/18 12:08 MPV 9.0 fL (9.4-12.4) L 07/11/18 14:59 16.0 % (0-4) H 07/11/18 14:59 2.0 % (0) H 07/12/18 12:08 10.0 % (0) H 07/12/18 12:08 4.0 % (0) H 07/11/18 14:59 2.0 % (0) H 07/12/18 01:19 9.0 K/mcL (1.6-8.9) H 07/12/18 12:08 0.5 K/mcL (0.6-4.6) L 07/12/18 12:08 1.6 K/mcL (0.0-1.3) H 07/12/18 01:19 0.7 K/mcL (0.0-0.6) H 07/11/18 14:59 Nucleated RBCs/100 WBC 2.8 /100 WBC (0) H 07/12/18 12:08 Present (Not Present) A 07/12/18 01:19 Decreased (Normal) L 07/12/18 12:08 1+ (Not Present) A 07/12/18 12:08 1+ (Not Present) A 07/12/18 12:08 Percent Retic 2.9 % (1.6-2.8) H 07/12/18 12:08 Retic Hgb Equivalent 37.2 pg (28.61-36.33) H 07/12/18 12:08 PT 12.4 Seconds (9.4-12.1) H 07/12/18 01:19 APTT 21.5 Seconds (26.0-36.0) L 07/12/18 01:19 ABG pO2 79 mmHg (85-104) L 07/12/18 10:59 Sodium 133 mEq/L (136-145) L 07/12/18 01:19 Potassium 3.4 mEq/L (3.5-5.1) L 07/12/18 11:30 Chloride 97 mEq/L (98-107) L 07/12/18 01:19 Carbon Dioxide 30 mEq/L (23-29) H 07/11/18 14:59 BUN 26 mg/dL (8-23) H 07/12/18 11:30 0.68 mg/dL (0.70-1.30) L 07/12/18 11:30 38 (6-26) H 07/12/18 11:30 Glucose 167 mg/dL (70-105) H 07/12/18 11:30 POC Glucose 180 mg/dL (70-99) H 07/12/18 10:39 278 (280-300) L 07/11/18 14:59 Lactic Acid 2.4 mmol/L (0.5-2.2) H 07/12/18 07:06 Phosphorus 5.4 mg/dL (2.7-4.5) H 07/12/18 01:19 AST 56 Units/L (13-39) H 07/12/18 01:19 2104 Units/L (140-271) H 07/12/18 11:30 41 mg/L (Less than 10) H 07/11/18 14:59 5.6 g/dL (6.4-8.9) L 07/12/18 01:19 1.8 g/dL (2.4-3.5) L 07/12/18 01:19 Ur Specific [place] > 1.030 (1.010-1.025) H 07/11/18 17:30 30 mg/dL (Neg-Trace) H 07/11/18 17:30 Ur Squamous Epith Cells Moderate per lpf (None-Few) H 07/11/18 17:30
[2018-07-12] MEDS ORDERED: methylPREDNISolone 125 MG/2 ML VIAL IVP ONE (10:31)
[2018-07-12] MEDS ORDERED: Ipratropium/Albuterol Neb 3 ML IH ONE (10:32)
[2018-07-12] MEDS ORDERED: Furosemide 40 MG/4 ML VIAL IVP ONE (10:47)
[2018-07-12] MEDS ORDERED: Dextrose Gel 15 GM/37.5 ML TUBE PO PRN ×2 (10:50)
[2018-07-12] MEDS ORDERED: *HR* Dextrose 50 % in Water (Syg) 50 ML SYRINGE IVP PRN (10:50)
[2018-07-12] MEDS ORDERED: D5% in Water 1,000 ML IVC PRN (10:50)
[2018-07-12 11:06] LABS: ABG Base Excess 1 mEq/L (-2 to 3); ABG HCO3 25 mEq/L (21-27); ABG Oxygen Saturation 96 % (95-98); ABG PCO2 37 mmHg (35-45); ABG PH 7.44 pH Units (7.32-7.45); ABG PO2 79 mmHg (85-104); ABG TCO2 26 mEq/L (20-26)
[2018-07-12] MEDS: Ketorolac 30 MG/ML VIAL IVP PRN ×2 (12:15→19:34)
[2018-07-12 12:28] LABS: Hemoglobin 9.4 g/dL (12.9-16.9)
[2018-07-12 12:30] LABS: Hematocrit 27.8 % (37.5-50.1); Immature Platelets 2.2 % (1.1-6.1); Immature Reticulocyte % 23.2 % (11.0-38.0); Mean Corpuscular HGB Conc 33.8 g/dL (31.6-35.5); Mean Corpuscular Hemoglobin 30.5 pg (28.0-33.3); Mean Corpuscular Volume 90.3 fL (83.0-100.0); Mean Platelet Volume 9.5 fL (9.4-12.4); Nucleated Red Blood Cells 2.8 /100 WBC (0); Red Blood Count 3.08 M/mcL (4.19-5.50); Red Cell Distribution Width 14.8 % (11.5-14.5); Retculocyte # 0.09 M/mcL (0.05-0.10); Reticulocyte % 2.9 % (1.6-2.8)
[2018-07-12] MEDS ORDERED: Cefepime HCl 1,000 MG in Water for inj. (sterile) 20 ML 10 ML IVP ONE (12:34)
[2018-07-12 12:49] LABS: BUN/Creatinine Ratio 38 (6-26); Blood Urea Nitrogen 26 mg/dL (8-23); Calcium 8.8 mg/dL (8.6-10.3); Carbon Dioxide 28 mEq/L (23-29); Chloride 102 mEq/L (98-107); Glucose 167 mg/dL (70-105); Lactate Dehydrogenase 2104 Units/L (140-271); Osmolality,Calculated 291 (280-300); Potassium 3.4 mEq/L (3.5-5.1); Sodium 136 mEq/L (136-145); Troponin I < 0.03 ng/mL (< 0.04); eGFR For Non-African Americans > 60 (> 60)
[2018-07-12 12:53] LABS: Platelet Count 60 K/mcL (140-400)
[2018-07-12 13:00] LABS: Lymphocytes # 0.5 K/mcL (0.6-4.6); Monocytes # 0.5 K/mcL (0.0-1.3); Platelet Estimate Decreased (Normal)
[2018-07-12 13:04] LABS: Polychromasia 1+ (Not Present)
[2018-07-12 13:05] LABS: Anisocytosis 1+ (Not Present)
--- NOTE | 2018-07-12 13:47 | Infectious Disease Consult ---
Infectious Disease-Consult - Encounter Date/Time Date of Encounter: 07/12/18 Time of Encounter: 13:38 - Data of Consult Patient: new to practice Reason for consult: Concern for Underlying infectious etiology of unclear source Consult date: 07/12/18 Requesting Physician: Ramos Rodriguez DO Primary Care Provider: Conor Conley DO - HPI HPI: Patient is a 58-year-old gentleman who presented to [facility] on 07/11/2018 with left arm weakness, thrombocytopenia, both posterior mediastinal mass. We are consulted 07/12/2018 for "concern for underlying infectious etiology of unclear source" Patient is 58-year-old gentleman with past medical history mentioned below including hypertension, hyperlipidemia, COPD, tobacco abuse and coronary artery disease was had multiple admissions in the recent past to [facility] presented this time bilateral shoulder pain and weakness in his left upper extremity. Symptoms started 1 or 2 days prior to admission. Patient is not the best historian so most information was taken from medical records. Patient was recently admitted to [facility] where he was diagnosed with multifocal pneumonia, COPD, Chinchilla's palsy, patient was worked up by hematology/oncology and rheumatology. I was concerned for malignancy including leukemia. Since admission, patient has been afebrile, tachycardic without tachypnea. Presenting labs revealed a WBC of 12,000 with 16% bands BUN/creatinine 25/0.81. Lactic acidosis at 2.9. Lactate dehydrogenase of 2104. Urinalysis was nonrevealing. Urine tox screen was negative. Lyme was negative. Patient had blood cultures done 2 07/11/2018 no growth to date. CT chest noted enlarged AP window lymph node concerning for neoplasm. Infiltration of the mediastinal fat. CT abdomen and pelvis revealed new heterogeneous enhancement of the kidneys wi th marked perinephric fat stranding. CT head and neck reveals no acute intracranial abnormality. An MRI of the brain read no acute infarct or acute intracranial process identified. Scattered foci of white matter signal abnormality which are nonspecific but may represent mild chronic small vessel ischemic changes. On further review, patient had a flow which noted abnormal myeloid blast population 07/04 and peripheral smear 07/12 showed 4% blasts. Currently patient is lying in bed. He is on a BiPAP machine. He is awake and alert tries to answer questions and not sure if it is because of the BiPAP we have a communication issue. Review of system is negative for headache. No URI symptoms. No sore throat no sinus pressure. Patient does not have visual changes. Patient denies any fevers at home but he has chills or night sweats. Patient denies any cough no sputum production or hemoptysis. No nausea or vomiting. No diarrhea. No urinary symptoms. No joint pain or effusion no rash . - ROS Review of Systems: 10 point review of systems done, negative other for what is mentioned in history of present illness - Results CBC & Chem 7: 07/12/18 12:08 07/12/18 11:30 - Exam Vitals: Temp Pulse Resp BP Pulse Ox 97.9 F 91 18 155/84 96 07/12/18 10:36 07/12/18 10:36 07/12/18 10:36 07/12/18 10:36 07/12/18 10:36 Exam: GENERAL: Laying in bed, appears uncomfortable HEAD: Normocephalic atraumatic EYES: PERRLA, EOMI, no conjunctival hemorrhage, sclera anicteric ENT: Mucous membranes moist, no oral thrush NECK: Supple. No meningeal signs. No masses LUNGS: Chest expanding symmetrically. Lungs sounds audible both lung conley. diffuse fine wheezing noted CV: RRR, S1S2, ABDOMEN: Soft, nontender, nondistended. Bowel sounds audible BACK: No CVA tenderness. Normal inspection. No tenderness over the spine EXTREMITY: Adequate perfusion. No joint effusion. SKIN: Normal color. No rash. NEURO: Awake alert oriented. Weakness in left arm with inability to extend wrist, and minimal ability to extend at elbow. Right-sided facial droop from Chinchilla's palsy. PSYCH: Calm and appropriate. mild distress. Acetaminophen [Pain Reliever] 500 mg PO Q6H PRN #120 tablet 06/29/18 [Rx] Albuterol Sulfate [Albuterol Inhaler] 2 puff IH Q4HR PRN #1 inhaler 06/29/18 [Rx] Aspirin Enteric Coated [Aspirin EC] 81 mg PO DAILY #30 tablet. 06/29/18 [Rx] Ipratropium/Albuterol Neb [Duoneb] 3 ml IH Q6H PRN #120 vial 06/29/18 [Rx] Isosorbide MONOnitrate (24 HR) [Imdur] 30 mg PO DAILY #30 tab.er.24h 06/29/18 [Rx] Lisinopril/Hydrochlorothiazide [Zestoretic 20-25 mg Tablet] 1 tab PO DAILY #30 tablet 06/29/18 [Rx] Loratadine [Claritin] 10 mg PO DAILY #30 tablet 06/29/18 [Rx] Metoprolol Tartrate 50 mg PO DAILY #30 tablet 06/29/18 [Rx] Multivitamin [Daily Multiple Vitamin] 1 tab PO DAILY #30 tablet 06/29/18 [Rx] Omeprazole [PriLOSEC] 20 mg PO DAILY #30 capsule.dr 06/29/18 [Rx] Simvastatin [Zocor] 40 mg PO DAILY #30 tablet 06/29/18 [Rx] Famciclovir 500 mg PO Q8H #21 tab 07/01/18 [Rx] Allergy/AdvReac Type Severity Reaction Status Date / Time doxycycline AdvReac See Verified 07/11/18 13:53 Comments Penicillins AdvReac Hives Verified 07/11/18 13:53 Sulfa (Sulfonamide AdvReac NOSE BLEEDS Verified 07/11/18 13:53 Antibiotics) tetracycline [Tetracycline] AdvReac Difficulty Verified 07/11/18 13:53 Breathing - Assessment and Plan (1) Mediastinal mass Current Visit: Yes Status: Acute etiology not clear does not appear infectious patient with no fever leukocytosis and bands likely to hematological malignancy? peripheral smear showing 4% blasts Cytology revealed abnormal myeloid blasts CT reveiwed with Dr. Freitas SNOMED Code(s): 46101459 (2) Allergy to multiple antibiotics Current Visit: Yes Status: Acute exact reaction not known (unable to obtain from patient) SNOMED Code(s): 360270962031234 (3) Chinchilla's palsy Current Visit: Yes Status: Acute done wih valtrex currently on steroids SNOMED Code(s): 278213507 (4) Left arm weakness Current Visit: Yes Status: Acute SNOMED Code(s): 584569503 (5) COPD (chronic obstructive pulmonary disease) Current Visit: Yes Status: Chronic has extensive wheezing on steroids CT noted d/c cefepime and vanc continue azithromycin Qualifiers: COPD type: unspecified COPD Qualified Code(s): J44.9 - Chronic obstructive pulmonary disease, unspecified SNOMED Code(s): 03489783 (6) Coronary artery disease Current Visit: No Status: Chronic Qualifiers: Coronary Disease-Associated Artery/Lesion type: [place] artery [place] vs. transplanted heart: hoopa heart Associated angina: without angina Qualified Code(s): I25.10 - Atherosclerotic heart disease of [place] coronary artery w ithout angina pectoris SNOMED Code(s): 09133138 (7) Hyperlipidemia Current Visit: No Status: Chronic Qualifiers: Hyperlipidemia type: unspecified Qualified Code(s): E78.5 - Hyperlipidemia, unspecified SNOMED Code(s): 08632000 (8) Tobacco abuse Current Visit: No Status: Chronic SNOMED Code(s): 216895333 Past Med Surg Social Fam HX - Past Medical History Medical history: arthritis, COPD, hyperlipidemia, hypertension, other Additional medical history: bells palsy Psychiatric history: depression - Past Surgical History Surgical History: sinus surgery, tonsillectomy Additional surgical history: coronary stents - Social History Smoking Status: Current every day smoker Smokeless Tobacco Status: No Alcohol use: none Drug use: none - Family History Father Living Status: Age at : 61 Cause of : cancer Hx Family Cancer: Yes Mother Age: 80 Living Status: Still Living Hx Family Cardiac Disorders: Yes Hx Family Cancer: Yes Hx Family Endocrine Disorder: Yes (DM) Consult Discharge Plan - Plan Referrals: Pam Campbell DO [Resident] - 07/19/18 10:20 am
[2018-07-12] MEDS: Insulin LISPRO 300 UNITS/3 ML VIAL SQ SCH ×3 (14:06→20:35)
--- NOTE | 2018-07-12 15:38 | Oncology Inp Consult Note ---
<Seema Seth L - Last Filed: 07/13/18 08:56> Date of Encounter: 07/12/18 Time of Encounter: 13:00 Assessment and Plan (1) Thrombocytopenia Status: Acute Assessment and plan: Initially consulted ~2 weeks ago for further assessment of thrombocytopenia Workup at that time was mostly unrevealing and felt to be secondary to underlying sepsis Patient now represents for bilateral upper extremity weakness (L>R) and shoulder pain. Now presents with neutrophil predominant leukoocytosis ( has has been on steroids for COPD exacerbation) as well as anemia and continued thrombocytopenia Peripheral flow reveals abnormal myeloid blast cell population, Peripheral smear reveals 4% blasts Plan: Concerning for underlying myeloid neoplastic process His LDH is significantly elevated at ~2000, concerning for potential leukemic process Recommend bone marrow biopsy and aspiration tomorrow, NPO after MN bcr abl, calr exon 19, haptoglobin, JAK2 and MPL codon pending Neurology on board, appreciate recommendations, paraneoplastic workup has been initiated CSF involvement can rarely be seen with AML, however, we do not have working diagnosis of such as of yet (list of differentials is quite long and includes MDS, CML, myelofibrosis, among others) Further recommendations pending BMB report For his left shoulder and upper extremity weakness, agree with cervical MRI, we will also add left shoulder MRI (left shoulder MRI in June 2016- revealed small partial thickness tear of the supraspinatus, tearing along the infraspinatus, OA of the glenohumeral joint, severe OA of the acriomioclavicular joint with findings that may be associated with impingement)---may need ortho consult following MRI - Data of Consult Patient: known to practice within the last 3 years Consult date: 07/12/18 Requesting Physician: Ramos Rodriguez DO Primary Care Provider: Conor Conley DO - Consult Narrative Reason for consult: Bicytopenia with leukocytosis History of present illness: Mr. Linwood Lobo is a 58 year old male known to our service after prior admission about two weeks ago for acute thrombocytopenia (plt ~30). Workup during this prior admission was essentially non-revealing and negative for TMA process, TTP, DIC or HIT. CT abdomen and pelvis without evidence of splenomegaly or liver disease. Hepatitis C/HIV negative. He was noted to have a significantly elevated LDH (~1000) as well as polyarthralgia, workup for tickborne illness was also negative, rheumatology was also consulted. He was diagnosed with multifocal pneumonia with lactic acidosis during this admission. He left without resolution of his thrombocytopenia and was scheduled to follow up later this week as an outpatient. He again presented to [facility] with complaints of bilateral shoulder pain and weakness in his left upper extremity. In addition to this, he presented [facility] ED for right facial drooping and diagnosed with Chinchilla's Palsy. Labs on admission revealed WBC 12, Hgb 10.6, platelets 71, Na 132, CRP 41, lactate 2.9, AST 53. Tox screen was negative. CTA of chest showed no PE, enlarged lymph node (similar to previous but new from more remote studies), infiltration of mediastinal fat. Neck CTA negative for flow-limiting stenosis. Head CTA showed no acute abnormalities. Shoulder pain started about 11 days ago, is constant but worse with movement, dull, with radiation to both hands. A few days later, he developed left upper extremity weakness. He isn't able to extend his wrist and he is barely able to extend his elbow. Oncology is consulted for further evaluation of bicytopenia with leukocytosis. Most of my information was gathered from chart review as patient is currently using bipap and somewhat of a poor historian Past Med Surg Social Fam HX - Past Medical History Medical history: arthritis, COPD, hyperlipidemia, hypertension, other Additional medical history: bells palsy Psychiatric history: depression - Past Surgical History Surgical History: sinus surgery, tonsillectomy Additional surgical history: coronary stents - Social History Smoking Status: Current every day smoker Smokeless Tobacco Status: No Alcohol use: none Drug use: none - Family History Father Living Status: Age at : 61 Cause of : cancer Hx Family Cancer: Yes Mother Age: 80 Living Status: Still Living Hx Family Cardiac Disorders: Yes Hx Family Cancer: Yes Hx Family Endocrine Disorder: Yes (DM) Medications and Allergies Acetaminophen [Pain Reliever] 500 mg PO Q6H PRN #120 tablet 06/29/18 [Rx] Albuterol Sulfate [Albuterol Inhaler] 2 puff IH Q4HR PRN #1 inhaler 06/29/18 [Rx] Aspirin Enteric Coated [Aspirin EC] 81 mg PO DAILY #30 tablet. 06/29/18 [Rx] Ipratropium/Albuterol Neb [Duoneb] 3 ml IH Q6H PRN #120 vial 06/29/18 [Rx] Isosorbide MONOnitrate (24 HR) [Imdur] 30 mg PO DAILY #30 tab.er.24h 06/29/18 [Rx] Lisinopril/Hydrochlorothiazide [Zestoretic 20-25 mg Tablet] 1 tab PO DAILY #30 tablet 06/29/18 [Rx] Loratadine [Claritin] 10 mg PO DAILY #30 tablet 06/29/18 [Rx] Metoprolol Tartrate 50 mg PO DAILY #30 tablet 06/29/18 [Rx] Multivitamin [Daily Multiple Vitamin] 1 tab PO DAILY #30 tablet 06/29/18 [Rx] Omeprazole [PriLOSEC] 20 mg PO DAILY #30 capsule. 06/29/18 [Rx] Simvastatin [Zocor] 40 mg PO DAILY #30 tablet 06/29/18 [Rx] Allergy/AdvReac Type Severity Reaction Status Date / Time doxycycline AdvReac See Verified 07/11/18 13:53 Comments Penicillins AdvReac Hives Verified 07/11/18 13:53 Sulfa (Sulfonamide AdvReac NOSE BLEEDS Verified 07/11/18 13:53 Antibiotics) tetracycline [Tetracycline] AdvReac Difficulty Verified 07/11/18 13:53 Breathing Constitutional: Present: fatigue, weakness. Absent: chills, fever(s) Eyes: Absent: change in vision Nose, mouth and throat: Absent: dysphagia Cardiovascular: Absent: chest pain Gastrointestinal: Absent: diarrhea, nausea, vomiting Genitourinary: Absent: dysuria Musculoskeletal: Present: as per HPI, arthralgias, muscle weakness, numbness, tingling. Absent: neck pain, stiffness Integumentary: Absent: rash, wounds Neurological: Present: focal weakness. Absent: confusion Psychiatric: Present: as per HPI Endocrine: Present: as per HPI Hematologic/Lymphatic: Present: as per HPI, easy bruising. Absent: easy bleeding, lymphadenopathy Oncology - Exam - Constitutional General appearance: cooperative, no acute distress, no febrile Exam: chronically ill appearing, drowsy but responds well to voice - Head Head exam: Present: atraumatic - ENT ENT exam: Present: mucous membranes moist, normal oropharynx - Respiratory Respiratory exam: Present: decreased breath sounds. Absent: respiratory distress Additional comments: Bipap in use during first assessment - Cardiovascular Cardiovascular exam: Present: RRR - GI/Abdominal GI/Abdominal exam: Present: normal bowel sounds, soft. Absent: tenderness - Extremities Exam Extremities exam: Present: normal inspection. 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 Yamini Varela <Hank Varela - Last Filed: 07/13/18 21:33> Date of Encounter: 07/12/18 - Data of Consult Requesting Physician: Estuardo Najera Primary Care Provider: Conor Conley DO - Attending Attestation I have seen and examined Mr. Yamil corralmargueritedeny assessment put in place by Ms. seth. Mr. Rueda's recent hospital last 2 weeks ago. At that time, her consult for thrombocytopenia. Evaluation for nutritional deficiency as well as paraproteinemia was negative. However, LDH was markedly elevated. CT imaging was without liver or splenic pathology at that time. He has developed a Chinchilla's palsy. He also has left shoulder pain with associated left arm and hand weakness that appears musculoskeletal in nature. On exam, there is a chronic we will man with right facial droop. 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 Heart regular rate and rhythm. Abdomen soft nontender nondistended without palpable hepatosplenomegaly. Personal review his labs revealed persistent thrombocytopenia. He is now developed a leukocytosis with significant left shift as well as circulating myeloblasts confirmed by flow cytometry during last hospital stay. LDH remains elevated. To further for an underlying bone marrow disorder, we have obtained a bone marrow aspirate and biopsy for tomorrow. We will also obtain a myeloproliferative neoplasm evaluation with a JAK2 V617F, JAK2 exon 12, CALR, MPL as well as BCR-ABL mutational analysis. PSA assessed. We have repeated his LDH, haptoglobin and reticulocyte count. Secondary to his left shoulder pain, cervical spine and left shoulder MRI imaging has been ordered. Overall, I am concerned he has an acute leukemia, myelofibrosis or myelophthesis. Inpatient Charges Provider: Dr. aYmini Varela Consult - Inpatient: [id number]
[2018-07-12] MEDS ORDERED: Thiamine (B-1) 100 MG in D5% in Water 50 ML IVPB STA (15:51)
--- NOTE | 2018-07-12 15:52 | Pulmonology Consult Note ---
Date of Encounter: 07/12/18 Time of Encounter: 14:00 Assessment and Plan (1) Mediastinal lymphadenopathy Current Visit: Yes Status: Acute This is a reactive, however malignancies in the differential diagnosis. With his respiratory status as well as thrombocytopenia he is high risk for complications and patient's aunt of stations most likely all related. Patient to be seen by hematology/oncology and perhaps bone marrow biopsy would be very valuable for diagnosis. Will consider bronchoscopy and biopsy, if no diagnosis after that step. (2) COPD exacerbation Current Visit: Yes Status: Suspected Patient has some COPD changes on the CAT scan and he is being treated appropriately with systemic steroid as well as bronchodilator and added Symbicort. He has been on noninvasive ventilation which will help his work of breathing. Checking vital capacity will be important especially with his weakness and I have explained to him if noninvasive ventilation fails, then he will need to be on invasive mechanical ventilation and in the presence of the nurse he declined that and discussed this with primary team to address it more with patient. (3) Thrombocytopenia Current Visit: Yes Status: Acute Metabolic to see the patient and overall presentation is very strange. Discussed with neurology with consideration of lumbar puncture or MRI of the spine. Infectious disease also has seen the patient. (4) Lung infiltrate on CT Current Visit: No Status: Acute I have reviewed CT chest personally and overall the changes are not very impressive and less likely pneumonia. Changes of chronic bronchitis with thickened bronchial suárez more prominence. Treatment with bronchodilators. History of Present Illness Consult date: 07/12/18 Requesting physician: Amadeo Beyer Reason for consult: dyspnea Chief complaint: Dyspnea and Weakness History of present illness: This is a pleasant 58-year-old male with past medical history of COPD and presented to emergency room with complaint of weakness mainly in the left upper extremity and also is having in the right upper extremity. Patient was recently diagnosed with Chinchilla's palsy about 12 days ago. Patient was treated and pulmonary was consulted for evaluation because of his breathing is getting worse. Patient has some cough and also now has wheezing and being treated with systemic steroid as well as bronchodilators for COPD exacerbations. Patient stated also he has numbness mainly in his upper extremities. Interestingly enough his lower extremity is not involved and he has good strength. He denies any nausea and vomiting and no diarrhea. He has some lab abnormalities mainly in his CBC. He had chest CT which was negative for pulmonary embolism however has enlarged lymph node. He has been placed on BiPAP for shortness of breath which is helping Him. He denies any recent travel. There is no history of tick bite. Past Med Surg Social Fam HX - Past Medical History Medical history: arthritis, COPD, hyperlipidemia, hypertension, other Additional medical history: bells palsy Psychiatric history: depression - Past Surgical History Surgical History: sinus surgery, tonsillectomy Additional surgical history: coronary stents - Social History Smoking Status: Current every day smoker Smokeless Tobacco Status: No Alcohol use: none Drug use: none - Family History Father Living Status: Age at : 61 Cause of : cancer Hx Family Cancer: Yes Mother Age: 80 Living Status: Still Living Hx Family Cardiac Disorders: Yes Hx Family Cancer: Yes Hx Family Endocrine Disorder: Yes (DM) Medications and Allergies Acetaminophen [Pain Reliever] 500 mg PO Q6H PRN #120 tablet 06/29/18 [Rx] Albuterol Sulfate [Albuterol Inhaler] 2 puff IH Q4HR PRN #1 inhaler 06/29/18 [Rx] Aspirin Enteric Coated [Aspirin EC] 81 mg PO DAILY #30 tablet. 06/29/18 [Rx] Ipratropium/Albuterol Neb [Duoneb] 3 ml IH Q6H PRN #120 vial 06/29/18 [Rx] Isosorbide MONOnitrate (24 HR) [Imdur] 30 mg PO DAILY #30 tab.er.24h 06/29/18 [Rx] Lisinopril/Hydrochlorothiazide [Zestoretic 20-25 mg Tablet] 1 tab PO DAILY #30 tablet 06/29/18 [Rx] Loratadine [Claritin] 10 mg PO DAILY #30 tablet 06/29/18 [Rx] Metoprolol Tartrate 50 mg PO DAILY #30 tablet 06/29/18 [Rx] Multivitamin [Daily Multiple Vitamin] 1 tab PO DAILY #30 tablet 06/29/18 [Rx] Omeprazole [PriLOSEC] 20 mg PO DAILY #30 capsule. 06/29/18 [Rx] Simvastatin [Zocor] 40 mg PO DAILY #30 tablet 06/29/18 [Rx] Famciclovir 500 mg PO Q8H #21 tab 07/01/18 [Rx] Allergy/AdvReac Type Severity Reaction Status Date / Time doxycycline AdvReac See Verified 07/11/18 13:53 Comments Penicillins AdvReac Hives Verified 07/11/18 13:53 Sulfa (Sulfonamide AdvReac NOSE BLEEDS Verified 07/11/18 13:53 Antibiotics) tetracycline [Tetracycline] AdvReac Difficulty Verified 07/11/18 13:53 Breathing All Systems: The remainder of the systems were reviewed and are negative Physical Examination Vital Signs: Vital Signs, Last 4 Hours Resp Pulse Ox 07/12/18 15:39 18 94 General appearance: appears uncomfortable (Mainly due to BiPAP mask) Eyes: nonicteric ENT: oropharynx dry Neck: supple, no lymphadenopathy Effort: mildly labored Auscultation: bilateral: wheezes Percussion: bilateral: not dull Cardiovascular: regular rate and rhythm Gastrointestinal: normoactive bowel sounds, non-distended Extremities: no cyanosis, no edema normal mental status, other (Chinchilla's palsy and weakness mainly in the upper extremities with decreased sensation) mood appropriate Results - Laboratory Findings CBC and BMP: 07/12/18 12:08 07/12/18 11:30 ABG ABG pH 7.44 pH Units (7.32-7.45) 07/12/18 10:59 ABG pCO2 37 mmHg (35-45) 07/12/18 10:59 ABG pO2 79 mmHg (85-104) L 07/12/18 10:59 ABG O2 Saturation 96 % (95-98) 07/12/18 10:59 PT/INR, D-dimer PT 12.4 Seconds (9.4-12.1) H 07/12/18 01:19 Abnormal lab findings: Abnormal lab results WBC 11.2 K/mcL (4.3-11.1) H 07/12/18 12:08 RBC 3.08 M/mcL (4.19-5.50) L 07/12/18 12:08 Hgb 9.4 g/dL (12.9-16.9) L 07/12/18 12:08 Hct 27.8 % (37.5-50.1) L 07/12/18 12:08 RDW 14.8 % (11.5-14.5) H 07/12/18 12:08 Plt Count 60 K/mcL (140-400) L 07/12/18 12:08 MPV 9.0 fL (9.4-12.4) L 07/11/18 14:59 16.0 % (0-4) H 07/11/18 14:59 2.0 % (0) H 07/12/18 12:08 10.0 % (0) H 07/12/18 12:08 4.0 % (0) H 07/11/18 14:59 2.0 % (0) H 07/12/18 01:19 9.0 K/mcL (1.6-8.9) H 07/12/18 12:08 0.5 K/mcL (0.6-4.6) L 07/12/18 12:08 1.6 K/mcL (0.0-1.3) H 07/12/18 01:19 0.7 K/mcL (0.0-0.6) H 07/11/18 14:59 Nucleated RBCs/100 WBC 2.8 /100 WBC (0) H 07/12/18 12:08 Present (Not Present) A 07/12/18 01:19 Decreased (Normal) L 07/12/18 12:08 1+ (Not Present) A 07/12/18 12:08 1+ (Not Present) A 07/12/18 12:08 Percent Retic 2.9 % (1.6-2.8) H 07/12/18 12:08 Retic Hgb Equivalent 37.2 pg (28.61-36.33) H 07/12/18 12:08 PT 12.4 Seconds (9.4-12.1) H 07/12/18 01:19 APTT 21.5 Seconds (26.0-36.0) L 07/12/18 01:19 ABG pO2 79 mmHg (85-104) L 07/12/18 10:59 Sodium 133 mEq/L (136-145) L 07/12/18 01:19 Potassium 3.4 mEq/L (3.5-5.1) L 07/12/18 11:30 Chloride 97 mEq/L (98-107) L 07/12/18 01:19 Carbon Dioxide 30 mEq/L (23-29) H 07/11/18 14:59 BUN 26 mg/dL (8-23) H 07/12/18 11:30 0.68 mg/dL (0.70-1.30) L 07/12/18 11:30 38 (6-26) H 07/12/18 11:30 Glucose 167 mg/dL (70-105) H 07/12/18 11:30 278 (280-300) L 07/11/18 14:59 Lactic Acid 2.4 mmol/L (0.5-2.2) H 07/12/18 07:06 Phosphorus 5.4 mg/dL (2.7-4.5) H 07/12/18 01:19 AST 56 Units/L (13-39) H 07/12/18 01:19 2104 Units/L (140-271) H 07/12/18 11:30 41 mg/L (Less than 10) H 07/11/18 14:59 5.6 g/dL (6.4-8.9) L 07/12/18 01:19 1.8 g/dL (2.4-3.5) L 07/12/18 01:19 Ur Specific Pavilion > 1.030 (1.010-1.025) H 07/11/18 17:30 30 mg/dL (Neg-Trace) H 07/11/18 17:30 Ur Squamous Epith Cells Moderate per lpf (None-Few) H 07/11/18 17:30 - Microbiology Findings Microbiology Findings: Microbiology, Last 48 Hours 07/11/18 14:59 Blood Culture - Preliminary Peripheral Venipuncture Culture is incubating and being continuously monitored for growth. Final report to follow. 07/11/18 14:58 Blood Culture - Preliminary Peripheral Venipuncture Culture is incubating and being continuously monitored for growth. Final report to follow. - Diagnostic Findings CT scan - chest: report reviewed, image reviewed - Clinical Findings Intake & Output: Intake & Output 07/11/18 07/12/18 07/12/18 23:59 07:59 15:59 Intake Total 1490 / 1990 900 / 1640 740 / 1640 Output Total 400 / 400 1050 / 1050 Balance 1090 / 1590 900 / 590 -310 / 590 Weight 80.7 kg 80.8 kg Consult Discharge Plan - Plan Referrals: Pam Campbell DO [Resident] - 07/19/18 10:20 am
[2018-07-12] MEDS: Cefepime HCl 2,000 MG in Water for inj. (sterile) 20 ML 20 ML IVP SCH (17:50)
[2018-07-12] MEDS: Budesonide/Formoterol 160/4.5 1 PUFF INH IH SCH (22:01)
--- NOTE | 2018-07-12 23:03 | Electrocardiograph Report ---
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
[2018-07-13] MEDS: MethylPREDNISolone 40 MG/ML VIAL IVP SCH ×2 (00:03→07:01)
[2018-07-13] MEDS: Azithromycin 500 MG in D5% in Water 250 ML IVPB SCH ×2 (00:03→23:21)
[2018-07-13] MEDS: *HR* Heparin 5,000 UNIT/ML VIAL SQ SCH ×4 (00:03→23:22)
[2018-07-13] MEDS: Ketorolac 30 MG/ML VIAL IVP PRN ×3 (01:03→15:21)
[2018-07-13] MEDS: Ipratropium/Albuterol Neb 3 ML IH SCH ×4 (04:13→22:28)
[2018-07-13] MEDS: Cefepime HCl 2,000 MG in Water for inj. (sterile) 20 ML 20 ML IVP SCH (07:01)
[2018-07-13] MEDS: Insulin LISPRO 300 UNITS/3 ML VIAL SQ SCH ×4 (07:28→20:49)
[2018-07-13] MEDS ORDERED: Aminoglycoside Consult 1 EACH MC ONE (07:48)
[2018-07-13] MEDS ORDERED: *HR* Midazolam HCl 2 MG/2 ML VIAL IVP ONE (08:11)
[2018-07-13] MEDS ORDERED: *HR* FentaNYL (PF) 100 MCG/2 ML VIAL IVP ONE (08:11)
--- NOTE | 2018-07-13 08:21 | Internal Med Progress Note ---
<Amadeo Beyer - Last Filed: 07/13/18 13:32> Hospitalist Progress Note - Encounter Date of Encounter: 07/13/18 Time of Encounter: 09:45 - Subjective Interval History: Patient is resting comfortably in bed at time of examination. He says that he is feeling substantially better than he had been previously. He has no acute co mplaints today although he does continue to have weakness on his left side and significant pain in his upper back and shoulder. - Exam Vitals: Temp Pulse Resp BP Pulse Ox 98.1 F 89 15 123/84 95 07/13/18 07:03 07/13/18 07:03 07/13/18 07:03 07/13/18 07:03 07/13/18 07:03 Exam: Gen: Vitals noted. No acute distress today, very pleasant on exam. Eyes: anicteric sclerae, moist conjunctivae; Pupils equal and reactive to light HENT: Atraumatic; oropharynx clear with moist mucous membranes and no mucosal ulcerations; normal hard and soft palate Neck: Trachea midline; supple, no thyromegaly or lymphadenopathy Cardiac: RRR, no murmur, +S1/S2 Pulmonary: Diffuse wheezing noted b/l on exam however markedly improved from yesterday Abdomen: soft, nontender, no guarding. No masses or hepatosplenomegaly MSK: ROM intact, no joint swelling noted Extremities: 1+ BLE edema, nontender calf, no cyanosis or clubbing Skin: Normal temperature, turgor and texture; no rash, ulcers or subcutaneous nodules Neuro: Right sided facial droop and left sided lid lag noted. Left upper extremity strength 2/5. Left lower extremity strength 4/5. Reflexes intact 2/4 b/l. Psych: Appropriate mood and behavior. 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 MRI T-spine shows Focal 1 mm disc protrusions at T2-3 and T8-9 without significant spinal canal stenosis or neural foraminal narrowing MRI Shoulder shows Near complete retracted full-thickness tear of Supraspinatus and full-thickness tear of subscapularis with retraction of fibers of insertion. Also shows mild infraspinatus tendinopathy and suspected tearing of the posteroinferior labrum. -> Also shows non-specific marrow changes We will consult orthopedic surgery for recommendations, however do not suspect intervention at this time will be appropriate given overall disposition Continue to appreciate neurology recommendations (2) Thrombocytopenia Current Visit: Yes Status: Acute Assessment and Plan: Platelets of 71 on admission, appears to be continuing from previous admission The patient also presents with leukocytosis and bands as well as blasts and promyelocytes Flow cytometry sent on prior admission ~2 weeks ago positive for Blasts Continue to have concerns that this may be an acute leukemia MRI L Shoulder and Brain both have changes in marrow concerning for myeloplastic changes Hematology was consulted previously and he plan for outpatient follow-up Unclear at this time if acute leukemia or blast crisis is present, appreciate oncology recommendation Plan for bone marrow biopsy today (3) Chinchilla's palsy Current Visit: Yes Status: Acute Assessment and Plan: 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 Started on prednisone taper and famciclovir as an outpatient Still has residual weakness in right face Head CTA negative for acute abnormalities Patient was on methylprednisolone for COPD exacerbation, however transitoned to PO steroids Neuro has been consulted for left UE weakness (4) COPD exacerbation Current Visit: Yes Status: Suspected Assessment and Plan: Patient rapidly developing acute shortness of breath and difficulty breathing Additionally, diffusely wheezy on exam and ABG does demonstrate hypoxia We will continue to support with oxygen and BiPAP as needed Brendenonebs, Transition to 60mg PO Prednisone Continue azithromycin (5) Hypertension Current Visit: No Status: Chronic Assessment and Plan: BP Stable Continue home medications (6) Shoulder pain Current Visit: Yes Status: Acute Assessment and Plan: Patient with bilateral shoulder pain for past 9-10 days that radiates down both arms with tingling in fingers Denies trauma Patient has history of arthritis ESR normal, CRP elevated at 41 MRI significant for Multiple muscle tears and for tendinopathies as above Will likely have orthopedic consultation (7) Mediastinal mass Current Visit: Yes Status: Acute Assessment and Plan: CTA chest showed enlarged lymph node Similar to previous exams but new from more remote imaging Reactive vs neoplasm Patient has thrombocytopenia and was supposed to see heme/onc as outpatient Will consult hematology/oncology to evaluate Pulmonology was also consulted, consider bronchoscopy for biopsy if necessary (8) Elevated lactic acid level Current Visit: Yes Status: Acute Assessment and Plan: Lactic acid 2.9 on admission, improved. Also with mildly elevated WBC of 12, but patient was recently on prednisone Given empiric antibiotics in ED Patient has a productive cough and was recently treated for pneumonia CXR shows no acute abnormality CTA chest not overly concerning for pneumonia, does show some infiltration in mediastinal fat UA not suspicious for UTI On azithromycin for COPD exacerbation Repeat lactic acid in AM Consulted ID for concern of underlying infectious process of unclear etiology I do not suspect that this is sepsis, high risk for fluid overload We will hold further fluids at this time (9) Hyperlipidemia Current Visit: No Status: Chronic Assessment and Plan: Continue home medications (10) GERD (gastroesophageal reflux disease) Current Visit: No Status: Chronic Assessment and Plan: Continue home medication (11) DVT prophylaxis Current Visit: No Status: Acute Assessment and Plan: Subcutaneous heparin (12) Acute respiratory failure Current Visit: Yes Status: Acute Assessment and Plan: Acute hypoxic respiratory failure, significantly improved Patient did have significant amounts of fluid, possibly vascular congestion Chest x-ray does demonstrate vascular congestion Chest CT is not significant for any consolidation or edematous process Will continue to monitor, will ask for pulm reconsult as needed Supplement O2 and use BiPAP PRN - Time Spent with Patient Total time spent is greater than 50% in coordination of care (as documented) at patient's floor/unit and/or counseling patient: Internal Medicine: Result - Labs CBC & Chem 7: 07/13/18 10:10 07/13/18 10:10 Labs: Short CBC 07/12/18 Range/Units 12:08 WBC 11.2 H (4.3-11.1) K/mcL Hgb 9.4 L (12.9-16.9) g/dL Hct 27.8 L (37.5-50.1) % Plt Count 60 L (140-400) K/mcL Neutrophils # 9.0 H (1.6-8.9) K/mcL BMP 07/12/18 11:30 Sodium 136 Potassium 3.4 L Chloride 102 Carbon Dioxide 28 BUN 26 H Creatinine 0.68 L Glucose 167 H Calcium 8.8 Cardiac Enzymes 07/12/18 Range/Units 11:30 Troponin I < 0.03 (< 0.04) ng/mL - ABG Interpretation ABG results: ABG ABG pH 7.44 pH Units (7.32-7.45) 07/12/18 10:59 ABG pCO2 37 mmHg (35-45) 07/12/18 10:59 ABG pO2 79 mmHg (85-104) L 07/12/18 10:59 ABG O2 Saturation 96 % (95-98) 07/12/18 10:59 PT/INR, D-dimer PT 12.4 Seconds (9.4-12.1) H 07/12/18 01:19 - Impressions Impressions Brain MRI 07/11/18 23:02 IMPRESSION: 1. No acute infarct or acute intracranial process identified. 2. Scattered foci of white matter signal abnormality which are nonspecific but may represent mild chronic small vessel ischemic changes. 3. Diffuse decreased T1 signal intensity throughout the bone marrow. This is a nonspecific finding however correlation with CBC is suggested as a chronic anemia or less likely marrow replacing process could result in this appearance. D/ / 07/12/2018 08:47:51 Cruz Campbell MD / [facility] Interpreting Provider: Cruz Campbell MD Chest X-Ray 07/12/18 10:39 IMPRESSION: 1. Increased pulmonary vascular congestion. D/ / Geoff Ceja MD / Geoff Ceja MD Interpreting Provider: Geoff Ceja MD Cervical Spine MRI 07/12/18 15:42 IMPRESSION: Motion degraded exam. Multilevel degenerative thecal sac narrowing and neural foraminal stenosis. D/ / Henry Agarwal MD / Henry Agarwal MD Interpreting Provider: Henry Agarwal MD Consult Discharge Plan - Plan Referrals: Pam Campbell DO [Resident] - 07/19/18 10:20 am <DaniaEstuardo G - Last Filed: 07/13/18 15:56> Hospitalist Progress Note - Encounter Date of Encounter: 07/13/18 - Summary of Assessment and Plan Summary of Assessment and Plan: Patient seen and examined independently, including review of objective data in cluding labs. I agree with plan of care as documented above by the resident with the following comments: This gentleman today is relatively well appearing but has unknown underlying process which is quite concerning. Heme: Blasts on diff w anemia/thrombocytopenia, LDH 1999, flow cytometry resulted 07/08 shows abnormal myeloid blasts, raises high suspicion for hematologic malignancy, and thus pursuing BMBx today. Heme following. Pulm: known COPD, in acute exacerbation, w acute hypoxic resp failure, is improved from yesterday and maintaining on 2L, cont scheduled nebs & PO steroids MSK: MRI showing R shoulder w multiple ligamentous injuries appear chronic, w some tendinopathy as well, did receive levaquin in early June but at that time was already reporting chronic b/l shoulder pain and "frozen shoulder" on the R. Will consult Ortho for management recommendations. ID: ID following, agrees with discontinuation of empiric broad spectrum abx Neuro: chinchilla's palsy, L wrist drop, scattered proximal muscle weakness, Neuro following, awaiting paraneoplastic panel labs and will pursue LP today Internal Medicine: Result - Labs CBC & Chem 7: 07/13/18 10:10 07/13/18 10:10 Labs: Short CBC 07/13/18 Range/Units 10:10 WBC 11.3 H (4.3-11.1) K/mcL Hgb 9.4 L (12.9-16.9) g/dL Hct 27.6 L (37.5-50.1) % Plt Count 55 L (140-400) K/mcL Neutrophils # 7.2 (1.6-8.9) K/mcL BMP 07/13/18 10:10 Sodium 136 Potassium 3.7 Chloride 101 Carbon Dioxide 29 BUN 35 H Creatinine 0.71 Glucose 138 H Calcium 8.8 Liver Function 07/13/18 Range/Units 10:10 Total Bilirubin 0.6 (0.3-1.0) mg/dL AST 43 H (13-39) Units/L ALT 25 (7-52) Units/L Alkaline Phosphatase 58 (34-104) Units/L Albumin 3.7 (3.5-5.7) g/dL - ABG Interpretation ABG results: ABG ABG pH 7.44 pH Units (7.32-7.45) 07/12/18 10:59 ABG pCO2 37 mmHg (35-45) 07/12/18 10:59 ABG pO2 79 mmHg (85-104) L 07/12/18 10:59 ABG O2 Saturation 96 % (95-98) 07/12/18 10:59 PT/INR, D-dimer PT 12.6 Seconds (9.4-12.1) H 07/13/18 10:10 - Impressions Impressions Cervical Spine MRI 07/12/18 15:42 IMPRESSION: Motion degraded exam. Multilevel degenerative thecal sac narrowing and neural foraminal stenosis. D/ / Henry Agarwal MD / Henry Agarwal MD Interpreting Provider: Henry Agarwal MD Bone Marrow Biopsy w/ CT 07/13/18 00:00 IMPRESSION: CT-guided bone marrow biopsy of the left iliac bone, with successful core. However, a dry tap was encountered. When discussing a re-attempt with the patient, he was unwilling to proceed with any additional attempt at this time. D/ / Godfrey Hinds MD / Godfrey Hinds MD Interpreting Provider: Godfrey Hinds MD Shoulder MRI 07/13/18 07:35 IMPRESSION: 1. Near complete retracted full-thickness tear of supraspinatus measuring an estimated 2.2 cm in greatest AP dimension. 1.9 cm of retraction of the torn fibers from the footplate. Essentially complete full-thickness tear of subscapularis with retraction of the fibers from the insertion measuring an estimated 2.5 cm. 2. Mild infraspinatus tendinopathy. Moderate edema throughout infraspinatus muscle. Mild atrophy and fatty degeneration of infraspinatus. 3. Moderate atrophy and fatty degeneration of subscapularis. 4. Suspected tearing of the posteroinferior labrum and suspected 3 mm posterior labral paralabral cyst at 9 o'clock suggesting underlying labral tearing. Mild diffuse underlying labral degeneration. 5. Moderate glenohumeral chondromalacia. 6. Nonspecific marrow signal abnormality with relative sparing of the proximal left humeral epiphysis. Differential considerations include red marrow reconversion, marrow replacement disorders, or proliferative marrow disorders. 7. Nonvisualization of the intra-articular long head of the biceps tendon which could be related to tearing or severe thinning. 8. Please note exam is limited due to patient motion. D/ : / 07/13/2018 09:13:16 Jaun Rendon MD / [facility] Interpreting Provider: Jaun Rendon MD Thoracic Spine MRI 07/13/18 08:05 IMPRESSION: Focal 1 mm disc protrusions at T2-3 and T8-9 without significant spinal canal stenosis or neural foraminal narrowing evident within the thoracic spine. D/ /13/2018 09:09:13 Cruz Campbell MD / [facility] Interpreting Provider: Cruz Campbell MD Lumbar Puncture Fluoroscopy 07/13/18 12:00 IMPRESSION: Successful fluoroscopic-guided lumbar puncture. D/ / 07/13/2018 15:22:52 Felix Camacho MD / [facility] Interpreting Provider: Felix Camacho MD <Amadeo Beyer - Last Filed: 07/13/18 13:32> (5) Hypertension Qualifiers: Hypertension type: essential hypertension Qualified Code(s): I10 - Essential (primary) hypertension (6) Shoulder pain Qualifiers: Chronicity: acute Laterality: left Qualified Code(s): M25.512 - Pain in left shoulder (9) Hyperlipidemia Qualifiers: Hyperlipidemia type: mixed hyperlipidemia Qualified Code(s): E78.2 - Mixed hyperlipidemia (10) GERD (gastroesophageal reflux disease) Qualifiers: Esophagitis presence: esophagitis presence not specified Qualified Code(s): K21.9 - Gastro-esophageal reflux disease without esophagitis (12) Acute respiratory failure Qualifiers: Respiratory failure complication: hypoxia Qualified Code(s): J96.01 - Acute respiratory failure with hypoxia
[2018-07-13] MEDS ORDERED: Thiamine (B-1) 100 MG in D5% in Water 50 ML IVPB SCH (09:00)
--- NOTE | 2018-07-13 09:25 | Electrocardiograph Report ---
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
[2018-07-13 10:34] LABS: Hemoglobin 9.4 g/dL (12.9-16.9); Nucleated Red Blood Cells 2.5 /100 WBC (0); Red Cell Distribution Width 14.9 % (11.5-14.5)
[2018-07-13 10:36] LABS: Hematocrit 27.6 % (37.5-50.1); Immature Platelets 2.4 % (1.1-6.1); Mean Corpuscular HGB Conc 34.1 g/dL (31.6-35.5); Mean Corpuscular Hemoglobin 30.4 pg (28.0-33.3); Mean Corpuscular Volume 89.3 fL (83.0-100.0); Mean Platelet Volume 8.9 fL (9.4-12.4); Red Blood Count 3.09 M/mcL (4.19-5.50)
[2018-07-13 10:43] LABS: INR 1.1; Prothrombin Time 12.6 Seconds (9.4-12.1)
[2018-07-13 10:52] LABS: Alanine Aminotransferase 25 Units/L (7-52); Albumin 3.7 g/dL (3.5-5.7); Albumin/Globulin Ratio 2.1 (1.1-2.2); Alkaline Phosphatase 58 Units/L (34-104); Aspartate Amino Transferase 43 Units/L (13-39); BUN/Creatinine Ratio 49 (6-26); Bilirubin,Total 0.6 mg/dL (0.3-1.0); Blood Urea Nitrogen 35 mg/dL (8-23); Calcium 8.8 mg/dL (8.6-10.3); Carbon Dioxide 29 mEq/L (23-29); Chloride 101 mEq/L (98-107); Globulin 1.8 g/dL (2.4-3.5); Glucose 138 mg/dL (70-105); Osmolality,Calculated 292 (280-300); Potassium 3.7 mEq/L (3.5-5.1); Sodium 136 mEq/L (136-145); Total Protein 5.5 g/dL (6.4-8.9); eGFR For Non-African Americans > 60 (> 60)
[2018-07-13] MEDS: Budesonide/Formoterol 160/4.5 1 PUFF INH IH SCH ×2 (10:52→22:28)
--- NOTE | 2018-07-13 11:17 | Infectious Disease Progress No ---
ID Progress Note Date of Encounter: 07/13/18 Time of Encounter: 09:30 - Subjective Subjective: Patient seen and examined. No acute events overnight. Patient resting quietly in bed. Denies acute complaints. Reports some shortness of breath with a nonproductive cough. Denies fevers, chills, rigors. Denies headache or neck pain. Reports lower back pain that is chronic for him. Continues to report some weakness in the bilateral upper extremities, left greater than right. He states the right-sided facial droop is about the same. Denies nausea, vomiting, diarrhea, constipation. Denies abdominal pain or urinary complaints. He is currently nothing by mouth for procedures later today and states his mouth is very dry. Denies oral thrush or skin lesions. - Objective CBC & Chem 7: 07/14/18 05:59 07/14/18 05:59 - Exam Vitals: Temp Pulse Resp BP Pulse Ox 98.4 F 92 18 139/83 94 07/13/18 11:04 07/13/18 11:04 07/13/18 11:09 07/13/18 11:04 07/13/18 11:09 Exam: Head: Atraumatic, normal inspection, normocephalic. Eye: EOMI, PERRLA, no scleral icterus noted. ENT: Mucous membranes moist. No odontogenic infection noted. Neck: Normal inspection, no meningismus. Supple, nontender. Respiratory: Faint expiratory wheezes noted to the left upper and left lower lobes. No rales, respiratory distress, rhonchi, or wheezes noted. Cardiovascular: Regular rate and rhythm, S1 and S2 audible. No murmurs, rubs, or gallops. GI: Soft, nondistended, normal bowel sounds. Extremities: No joint swelling, pedal edema, or tenderness noted. Back: Normal inspection. No vertebral tenderness noted. Neurological: Alert, oriented 3, weakness noted to the bilateral upper extremities, left greater than right. Right-sided facial droop persists, unc hanged per patient report. Psychiatric: normal affect, normal mood. Skin: Dry, intact, warm. Normal color. No rashes. - Assessment and Plan (1) Leukocytosis Current Visit: Yes Status: Acute WBC elevated on admission: Steroid-related versus malignancy. Bands with 4% blasts noted on peripheral smear. Cytology revealed abnormal myeloid blasts. Hem/Onc consulted. Bone marrow biopsy pending completion later today. Qualifiers: Leukocytosis type: bandemia Qualified Code(s): D72.825 - Bandemia SNOMED Code(s): 582144037, 854462664 (2) Mediastinal mass Current Visit: Yes Status: Acute CTA of the chest showed redemonstration of an enlarged AP window lymph node, similar when compared to previous exams that is, however, new when compared to more remote examinations. Although this could be reactive, neoplasm is of concern. Etiology: Unclear. Concern for malignancy given the patient's abnormalities on his CBC and differential and peripheral smear. Does not appear infectious however. Pulmonology consult and following. SNOMED Code(s): 35643206 (3) Left arm weakness Current Visit: Yes Status: Acute Etiology: Unclear. Neurology consult. Cervical spine MRI was a motion degraded exam, but did show multilevel degenerative thecal sac narrowing and neural foraminal stenosis. MRI of the left shoulder and thoracic spine are pending. LP planned for later today per interventional radiology. SNOMED Code(s): 128840619 (4) Chinchilla's palsy Current Visit: Yes Status: Acute Completed course of oral Valtrex. Currently on steroids. Symptoms unchanged per patient report. SNOMED Code(s): 451582584 (5) COPD (chronic obstructive pulmonary disease) Current Visit: Yes Status: Chronic CTA of the chest negative for infectious etiology. Continues to have wheezing on exam. Supportive care per the primary team. Qualifiers: COPD type: unspecified COPD Qualified Code(s): J44.9 - Chronic obstructive pulmonary disease, unspecified SNOMED Code(s): 90450792 (6) Coronary artery disease Current Visit: No Status: Chronic Qualifiers: Coronary Disease-Associated Artery/Lesion type: [place] artery [place] vs. transplanted heart: [place] heart Associated angina: without angina Qualified Code(s): I25.10 - Atherosclerotic heart disease of [place] coronary artery without angina pectoris SNOMED Code(s): 13413305 (7) Hyperlipidemia Current Visit: No Status: Chronic Qualifiers: Hyperlipidemia type: mixed hyperlipidemia Qualified Code(s): E78.2 - Mixed hyperlipidemia SNOMED Code(s): 59843090 (8) Tobacco abuse Current Visit: No Status: Chronic SNOMED Code(s): 008447542 (9) Allergy to multiple antibiotics Current Visit: Yes Status: Acute Exact reaction not known (unable to obtain from patient). SNOMED Code(s): 824047387595900 - Recommendations Recommendations: Await blood cultures to finalize. Await findings from bone marrow biopsy. Await CSF studies. Further recommendations to follow from the hematology/oncology team. Left arm weakness workup and treatment per the neurology team. Discontinue Vanco and cefepime. Continue azithromycin 500 mg IV daily. Duration of treatment depends on the clinical picture. Monitor renal function and dose adjust antibiotics. Consult Discharge Plan - Plan Referrals: Pam Campbell DO [Resident] - 07/19/18 10:20 am - Attending Attestation I have personally performed a face to face evaluation on this patient. I have reviewed and agree with the care plan. History and Exam by me shows: Assessment and plan: Mediastinal lymphadenopathy Left arm weakness with a tear of the infraspinatus tendon Dnenis radial nerve palsy Concern for malignancy Pleocytosis Chinchilla's palsy Coronary artery disease Multiple drug allergies Recommendations: At this point I had a long discussion with Dr. Varela the shuttleless loom weaver. Patient's Chinchilla's palsy, having last on the peripheral smear and the abnormal flow cytometry also just that the patient has some kind of leukemia. ANDRE versus AML. That could explain the Chinchilla's palsy and the lymphadenopathy and the mediastinal window and even the pleocytosis. I do not believe the patient has any infection at this point. Patient is taken azithromycin for COPD exacerbation. We will continue to observe off antibiotics. No need to treat with antibiotics for the pleocytosis. Discussed with the resident physician
[2018-07-13 11:20] LABS: Platelet Count 55 K/mcL (140-400)
[2018-07-13 11:28] LABS: Lymphocytes # 2.2 K/mcL (0.6-4.6); Monocytes # 0.8 K/mcL (0.0-1.3); Neutrophils # 7.2 K/mcL (1.6-8.9); Platelet Estimate Decreased (Normal)
[2018-07-13 11:29] LABS: Polychromasia 1+ (Not Present)
[2018-07-13] MEDS ORDERED: 0.9 % Sodium Chloride 500 ML ONE (14:10)
--- NOTE | 2018-07-13 14:40 | IR Procedure Note ---
Date of procedure: 07/13/18 Consent Obtained: Written consent Timeout: Correct patient and procedure verified, Correct site verified, Time out performed, Skin prep completed Local anesthetic: Lidocaine 1% Was there an administrative assistant data entry present: No Results/Findings: Results pending. Good bone core. Dry tap Estimated blood loss (cc): 2 Complications: None; Tolerated procedure well Indications: Thrombocytopenia, abnormal peripheral smear Procedure Performed: Bone marrow bx and attempted aspiration Site/Technique: Left posterior iliac bone used for access. Results/Findings (any specimens removed): Dry tap, with separate angles and depths attempted in left posterior iliac bone, unable to obtain an aspirate. Bone core obtained. Patient wouldn't tolerate any additional attempts. Procedure aborted. Post Procedure Treatment Plan: Monitoring in pts room. Specimen: to lab
--- NOTE | 2018-07-13 15:19 | Oncology Inp Progress Note ---
<Seema Seth L - Last Filed: 07/13/18 17:28> Date of Encounter: 07/13/18 Time of Encounter: 16:00 (1) Thrombocytopenia Current Visit: Yes Status: Acute Assessment and plan: Initially consulted ~2 weeks ago for further assessment of thrombocytopenia Workup at that time was mostly unrevealing and felt to be secondary to underlyin g sepsis Patient now represents for bilateral upper extremity weakness (L>R) and shoulder pain. Now presents with neutrophil predominant leukoocytosis ( has also been on steroids for COPD exacerbation) as well as anemia and continued thrombocytopenia Peripheral flow reveals abnormal myeloid blast cell population, Peripheral smear reveals 4% blasts Plan: Concerning for underlying myeloid neoplastic process His LDH is significantly elevated at ~2000, concerning for potential leukemic process bcr abl, calr exon 19, haptoglobin, JAK2 and MPL codon--- pending PSA normal Neurology on board, appreciate recommendations, paraneoplastic workup has been initiated CSF involvement can rarely be seen with AML, however, we do not have working diagnosis of such as of yet (list of differentials is quite long and includes MDS, CML, myelofibrosis, among others) Lumbar puncture ordered today per neuro-I did add cytology and flow cytometry to CSF Further recommendations pending BMB report---marrow was a dry tap, but good bone sampling received, we will await results (2) Left arm weakness Current Visit: Yes Status: Acute Assessment and plan: [place] MRI with multiple findings to explain patients LUE weakness and limited ROM [id number] retracted full-thickness tear of supraspinatus, essentially a complete full-thickness tear of the subscapularis with retraction, mild infraspinatus tendinopathy, moderate atrophy of the subscapularis. Suspected tearing of the posterior inferior labrum. Moderate glenohumeral chondromalacia. Nonspecific marrow signal abnormality with sparing of the right minimal left humeral epiphysis. Oncology: Subj Interval history: Mr. Lobo feels somewhat improved overall today. Still with limited ROM of left shoulder, he does appear to have near, complete full thickness tear of supraspinatus noted in MRI report, among other findings. Seen at bedside following bone marrow biopsy, aspirate was not obtained due to dry tap. - Constitutional General appearance: cooperative, no acute distress, no febrile - Head Head exam: Present: atraumatic - Eye Additional comments: right eye ptosis - ENT ENT exam: Present: mucous membranes moist, normal oropharynx - Respiratory Respiratory exam: Present: decreased breath sounds, CTAB. Absent: respiratory distress - Cardiovascular Cardiovascular exam: Present: RRR - GI/Abdominal GI/Abdominal exam: Present: normal bowel sounds, soft. Absent: tenderness - Extremities Exam Extremities exam: Present: normal inspection. 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 Yamini Varela <Hank Varela - Last Filed: 07/13/18 21:03> Date of Encounter: 07/13/18 Oncology: Obj Data - Labs CBC & Chem 7: 07/13/18 10:10 07/13/18 10:10 Inpatient Charges Provider: Dr. Yamini Varela Follow up - Inpatient: [id number] - Attending Attestation I examined this patient and my medical decision-making was reviewed with the Advanced Practice Nurse. I agree with the documented findings, disposition and treatment plan as described except to the extent set forth below. Mr. Rueda un derwent bone marrow aspirate and biopsy today. Myeloproliferative workup is still pending. MRI imaging of the shoulder reveals rotator cuff injury. Lumbar puncture has been completed. This showed an elevated protein as well as lymphocyte count. Flow cytometry and cytology has been requested on the specimen. On exam, left sided shoulder pain/weakness persists. Chinchilla's palsy is stable. Lungs are clear to auscultation. I reviewed his laboratory studies as well as imaging to date. Overall, I think the patient likely has either an acute leukemia (lymphoid or myeloid), myelofibrosis, myeloproliferative neoplasm or possibly an infiltrative marrow disorder causing a myelophthisic picture. There was concern by the hospitalist this represented H LH. Given lack of fever, splenomegaly or rash, this is unlikely. No new recommendations today. We will await the aforementioned studies. If patient is Dempsey for discharge from the hospitals perspective, I think this is reasonable. I can arrange for close follow-up.
[2018-07-13] MEDS: predniSONE 20 MG TABLET PO SCH (15:21)
[2018-07-13 16:03] LABS: Glucose,CSF 80 mg/dL (40-70); Total Protein,CSF 108 mg/dL (15-45)
[2018-07-13 16:07] LABS: Chol/HDL Ratio 5.7 (0-4.9); Cholesterol 153 mg/dL (< 200); HDL Cholesterol 27 mg/dL (40-59); LDL Cholesterol,Calculated 83 mg/dL (0-99); Triglycerides 213 mg/dL (< 150)
--- NOTE | 2018-07-13 16:13 | Neurology Progress Note ---
<Josep Frazier - Last Filed: 07/13/18 16:10> Date of Encounter: 07/13/18 Time of Encounter: 16:10 Assessment and Plan (1) Left arm weakness Current Visit: Yes Status: Acute Patient seen in follow-up to evaluate for cause of left arm weakness, bilateral leg weakness and left shoulder pain. Clinically, he remains stable at this time without any further neurological deficits on exam. Again, at this juncture the etiology of his symptoms remain unclear. The differential includes a peripheral autoimmune inflammatory neuropathy (AIDP, CIDP, MMN either idiopathic or secondary to underlying malignancies), and paraneoplasm. Workup is pending and further recommendations are pending results of these studies. Left shoulder MRI obtained and found rupraspinatus full-thickness tear, subscapularis full- thickness tear and inferior labral tear with glenohumeral chondromalacia. Etiology of tears are unclear; patient denies any trauma. While the tears are most likely the cause of the LUE weakness it does not explain the widespread multifocal findings and cranial nerve involvement. Completed Imaging: Cervical MRI-motion degraded exam but multilevel the thecal sac narrowing and neural foraminal stenosis found. No spinal canal stenosis found Thoracic MRI-focal 1 mm disc protrusions at T2-3 and at T8-9 without significant spinal canal stenosis or neural foraminal narrowing evident within the T-spine. Bone marrow signal intensity is normal Shoulder [id number] retracted full-thickness tear of supraspinatus measuring 2.2 cm; 1.9 cm of retraction of the torn fibers from the foot plate. Essentially a complete full-thickness tear of the subscapularis with retraction of the fibers from the insertion measuring assessment 2.5 cm. Additionally there is mild infraspinatus tendinopathy, moderate atrophy of the subscapularis. Suspected tearing of the posterior inferior labrum. Moderate glenohumeral chondromalacia. Nonspecific marrow signal abnormality with sparing of the right minimal left humeral epiphysis. Studies: Underwent LP today- CSF JESSICA, & routine studies pending -protein 108, glocose 80 Bone marrow biopsy completed- left iliac bone with successful core. However, dry tap was encountered; may need to try bone marrow bx tomorrow; defer to hematology/oncology for further orders Plan: Pending studies as follows: -ANTI hu, Anti RA, Anti VGCC, Anti GM1, Anti mg to r/o paraneoplasm; these labs are a send out -Serum protein electrophoresis, immunoelectrophoresis ID, Pulm and hematology oncology seeing in consultation; recommendations appreciated c/w medical and supportive care (2) Chinchilla's palsy Current Visit: Yes Status: Acute Subjective Principal diagnosis: Left arm weakness Interval history: The patient was seen in follow-up for left arm and bilateral leg weakness and shoulder pain. Etiology remains unclear. Clinically, the patient remains stable without any further neurological deficits developing overnight. Today he has undergone x-ray guided lumbar puncture and an attempt at bone marrow biopsy. Currently, he is resting comfortable in bed without any acute distress. Briefly I was able to discuss the plan of care including pending studies, the need to workup and rule out or confirm an acute peripheral autoimmune inflammatory process, myeloproliferative disorder or Neoplasm. The patient confirmed understanding of goals of care and denies any further questions. Objective - Constitutional Vitals: Temp Pulse Resp BP Pulse Ox 97.9 F 92 14 120/74 97 07/13/18 15:41 07/13/18 15:41 07/13/18 15:41 07/13/18 15:41 07/13/18 15:41 Exam: Examination: General Examination: *CONSTITUTIONAL: Alert and oriented x3, calm, cooperative no acute distress *GENERAL APPEARANCE OF PATIENT ill appearing elderly male *EYES: pupils equal, round, reactive to light and accommodation, conjunctiva clear without masses or ulcerations, fundi normal. *CARDIOVASCULAR no peripheral edema, distal temperature normal, dorsalis pedis pulses normal. 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 Left deltoid, & tricep 2/5 strength with left wrist drop; pain with tricep extension and with attempt at shoulder adduction and abduction unable to adduct or abduct, right bicep and sole leather cutting machine operator strength 4/5, *MUSCLE TONE IN THE UPPER AND LOWER EXTREMITIES normal. No abnormal movements, fasciculations or atrophy identified. Neurological: *ORIENTATION to person, situation, time and place *RECURRENT AND REMOTE MEMORY intact *ATTENTION AND CONCENTRATION are normal *LANGUAGE FUNCTION no significant aphasia or dysarthia was noted. *FUND OF KNOWLEDGE aware of current events, past history, vocabulary *MENTAL attention span and concentration normal. *CN II optic fundi were normal, no papilledema noted. *CN III,IV, PERRLA extraocular eye movements were full, no nystagmus. Right eye ptosis present *CN V shows normal sensation and jaw opens asymmetrically with right mouth droop; recent diagnosis of Chinchilla's palsy *CN VII shows abnormal facial movement; right mouth droop with right eye ptosis upper and lower bilaterally. *CN VIII shows no significant hearing loss on exam *CN IX,,X palate elevated symmetrically *CN XI asymmetrical strength in the sternocleidomastoid muscles with right SCM stronger than left, asymmetrical shoulder shrugging. *CN XII tongue protruded in the midline, with normal strength and movement. *SENSORY EXAMINATION light touch intact *REFLEXES: deep tendon reflexes were diminished diffusely, no pathological reflexes were noted. *CEREBELLAR TESTING normal finger to nose with right arm, abnormal with left due to arm weakness *PAIN LEVEL persistent left shoulder and arm pain Results - Laboratory Findings CBC and BMP: 07/13/18 10:10 07/13/18 10:10 Abnormal lab findings: Abnormal lab results WBC 11.3 K/mcL (4.3-11.1) H 07/13/18 10:10 RBC 3.09 M/mcL (4.19-5.50) L 07/13/18 10:10 Hgb 9.4 g/dL (12.9-16.9) L 07/13/18 10:10 Hct 27.6 % (37.5-50.1) L 07/13/18 10:10 RDW 14.9 % (11.5-14.5) H 07/13/18 10:10 Plt Count 55 K/mcL (140-400) L 07/13/18 10:10 MPV 8.9 fL (9.4-12.4) L 07/13/18 10:10 16.0 % (0-4) H 07/11/18 14:59 5.0 % (0) H 07/13/18 10:10 3.0 % (0) H 07/13/18 10:10 4.0 % (0) H 07/11/18 14:59 2.0 % (0) H 07/13/18 10:10 9.0 K/mcL (1.6-8.9) H 07/12/18 12:08 0.5 K/mcL (0.6-4.6) L 07/12/18 12:08 1.6 K/mcL (0.0-1.3) H 07/12/18 01:19 0.7 K/mcL (0.0-0.6) H 07/11/18 14:59 Nucleated RBCs/100 WBC 2.5 /100 WBC (0) H 07/13/18 10:10 Present (Not Present) A 07/12/18 01:19 Decreased (Normal) L 07/13/18 10:10 1+ (Not Present) A 07/13/18 10:10 1+ (Not Present) A 07/12/18 12:08 Percent Retic 2.9 % (1.6-2.8) H 07/12/18 12:08 Retic Hgb Equivalent 37.2 pg (28.61-36.33) H 07/12/18 12:08 PT 12.6 Seconds (9.4-12.1) H 07/13/18 10:10 APTT 21.5 Seconds (26.0-36.0) L 07/12/18 01:19 ABG pO2 79 mmHg (85-104) L 07/12/18 10:59 Sodium 133 mEq/L (136-145) L 07/12/18 01:19 Potassium 3.4 mEq/L (3.5-5.1) L 07/12/18 11:30 Chloride 97 mEq/L (98-107) L 07/12/18 01:19 Carbon Dioxide 30 mEq/L (23-29) H 07/11/18 14:59 BUN 35 mg/dL (8-23) H 07/13/18 10:10 0.68 mg/dL (0.70-1.30) L 07/12/18 11:30 49 (6-26) H 07/13/18 10:10 Glucose 138 mg/dL (70-105) H 07/13/18 10:10 POC Glucose 150 mg/dL (70-99) H 07/13/18 11:04 278 (280-300) L 07/11/18 14:59 Lactic Acid 2.4 mmol/L (0.5-2.2) H 07/12/18 07:06 Phosphorus 5.4 mg/dL (2.7-4.5) H 07/12/18 01:19 AST 43 Units/L (13-39) H 07/13/18 10:10 2104 Units/L (140-271) H 07/12/18 11:30 41 mg/L (Less than 10) H 07/11/18 14:59 5.5 g/dL (6.4-8.9) L 07/13/18 10:10 1.8 g/dL (2.4-3.5) L 07/13/18 10:10 Triglycerides 213 mg/dL (< 150) H 07/13/18 10:10 VLDL Cholesterol, Calc 43 mg/dL (< 31) H 07/13/18 10:10 27 mg/dL (40-59) L 07/13/18 10:10 5.7 (0-4.9) H 07/13/18 10:10 Ur Specific [place] > 1.030 (1.010-1.025) H 07/11/18 17:30 30 mg/dL (Neg-Trace) H 07/11/18 17:30 Ur Squamous Epith Cells Moderate per lpf (None-Few) H 07/11/18 17:30 80 mg/dL (40-70) H 07/13/18 13:40 108 mg/dL (15-45) H 07/13/18 13:40 Consult Discharge Plan - Plan Referrals: Pam Campbell DO [Resident] - 07/19/18 10:20 am <Amadeo Marquez - Last Filed: 07/13/18 19:25> Date of Encounter: 07/13/18 Assessment and Plan (1) Left arm weakness Current Visit: Yes Status: Acute I have personally performed a [id number] assessment of the patient and have reviewed the PA/BOUFFANT CURTAIN MACHINE TENDER note. My impressions are as follows: I agree with the assessment and plan documented as above by the AIRLINE COUNTER AGENT. 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 Multiple tests are still pending. I will continue to follow. (2) Chinchilla's palsy Current Visit: Yes Status: Acute Subjective Interval history: Chart was reviewed, patient was seen and examined. From a clinical perspective he does remain consistent with his prior neurologic examination from yesterday. Today he is undergone several tests including MRI scan of the cervical and thoracic spine which revealed no evidence of spinal stenosis. Lumbar puncture was performed and revealed protein was elevated at 108 and the WBCs were elevated at 110, 85% of which were lymphocytes. RBCs and glucose were both normal therefore it was not a traumatic tap. Objective - Constitutional Vitals: Temp Pulse Resp BP Pulse Ox 97.9 F 92 16 120/74 97 07/13/18 15:41 07/13/18 15:41 07/13/18 16:18 07/13/18 15:41 07/13/18 16:18 Exam: I have personally performed a [id number]-[id number] assessment of the patient and have reviewed the PA/BOUFFANT CURTAIN MACHINE TENDER note. My impressions are as follows: I agree with the neurologic examination as documented above in its entirety. Results - Laboratory Findings CBC and BMP: 07/13/18 10:10 07/13/18 10:10 Abnormal lab findings: Abnormal lab results WBC 11.3 K/mcL (4.3-11.1) H 07/13/18 10:10 RBC 3.09 M/mcL (4.19-5.50) L 07/13/18 10:10 Hgb 9.4 g/dL (12.9-16.9) L 07/13/18 10:10 Hct 27.6 % (37.5-50.1) L 07/13/18 10:10 RDW 14.9 % (11.5-14.5) H 07/13/18 10:10 Plt Count 55 K/mcL (140-400) L 07/13/18 10:10 MPV 8.9 fL (9.4-12.4) L 07/13/18 10:10 16.0 % (0-4) H 07/11/18 14:59 5.0 % (0) H 07/13/18 10:10 3.0 % (0) H 07/13/18 10:10 4.0 % (0) H 07/11/18 14:59 2.0 % (0) H 07/13/18 10:10 9.0 K/mcL (1.6-8.9) H 07/12/18 12:08 0.5 K/mcL (0.6-4.6) L 07/12/18 12:08 1.6 K/mcL (0.0-1.3) H 07/12/18 01:19 0.7 K/mcL (0.0-0.6) H 07/11/18 14:59 Nucleated RBCs/100 WBC 2.5 /100 WBC (0) H 07/13/18 10:10 Present (Not Present) A 07/12/18 01:19 Decreased (Normal) L 07/13/18 10:10 1+ (Not Present) A 07/13/18 10:10 1+ (Not Present) A 07/12/18 12:08 Percent Retic 2.9 % (1.6-2.8) H 07/12/18 12:08 Retic Hgb Equivalent 37.2 pg (28.61-36.33) H 07/12/18 12:08 PT 12.6 Seconds (9.4-12.1) H 07/13/18 10:10 APTT 21.5 Seconds (26.0-36.0) L 07/12/18 01:19 ABG pO2 79 mmHg (85-104) L 07/12/18 10:59 Sodium 133 mEq/L (136-145) L 07/12/18 01:19 Potassium 3.4 mEq/L (3.5-5.1) L 07/12/18 11:30 Chloride 97 mEq/L (98-107) L 07/12/18 01:19 Carbon Dioxide 30 mEq/L (23-29) H 07/11/18 14:59 BUN 35 mg/dL (8-23) H 07/13/18 10:10 0.68 mg/dL (0.70-1.30) L 07/12/18 11:30 49 (6-26) H 07/13/18 10:10 Glucose 138 mg/dL (70-105) H 07/13/18 10:10 POC Glucose 150 mg/dL (70-99) H 07/13/18 11:04 278 (280-300) L 07/11/18 14:59 Lactic Acid 2.4 mmol/L (0.5-2.2) H 07/12/18 07:06 Phosphorus 5.4 mg/dL (2.7-4.5) H 07/12/18 01:19 > 1500 ng/mL (20-250) H 07/13/18 10:10 AST 43 Units/L (13-39) H 07/13/18 10:10 2104 Units/L (140-271) H 07/12/18 11:30 41 mg/L (Less than 10) H 07/11/18 14:59 5.5 g/dL (6.4-8.9) L 07/13/18 10:10 1.8 g/dL (2.4-3.5) L 07/13/18 10:10 Triglycerides 213 mg/dL (< 150) H 07/13/18 10:10 VLDL Cholesterol, Calc 43 mg/dL (< 31) H 07/13/18 10:10 27 mg/dL (40-59) L 07/13/18 10:10 5.7 (0-4.9) H 07/13/18 10:10 Ur Specific [place] > 1.030 (1.010-1.025) H 07/11/18 17:30 30 mg/dL (Neg-Trace) H 07/11/18 17:30 Ur Squamous Epith Cells Moderate per lpf (None-Few) H 07/11/18 17:30 CSF Tot Nucleated Cells 110 TNC/mcL (0-5) H* 07/13/18 13:40 80 mg/dL (40-70) H 07/13/18 13:40 108 mg/dL (15-45) H 07/13/18 13:40
[2018-07-13 16:31] LABS: Ferritin > 1500 ng/mL (20-250)
[2018-07-13 16:46] LABS: Red Blood Cell,CSF < 0.002 M/mcL
[2018-07-13 16:58] LABS: Appearance,CSF Hazy (Clear)
--- NOTE | 2018-07-13 21:46 | Orthopedic Consult Note ---
Date of Encounter: 07/13/18 Time of Encounter: 21:37 History of Present Illness Chief complaint: Left upper extremity weakness HPI: Mr. Lobo is a 58 year old [id number] male who describes a 2 to three- week history of bilateral shoulder pain but especially weakness with the left side more involved than the right. He describes pain as being minimal but his biggest problem is weakness and inability to elevate his left shoulder or utilize his left wrist. Patient denies any recent trauma. Patient states that 3 weeks ago he was able to perform shoulder functions and hand functions without difficulty. He states that his initial presentation to [facility] was for evaluation of these. He was noted to have thrombocytopenia and feels that the left upper extremity weakness has been put aside. Patient is retired from working at the [employer] [facility] [place]. He states that he did a large amount of lifting and utilizing his arms and did not have any problems until just recently. Reviewed the patient's completed history and physical exam as well as the medical record. Pertinent orthopedic examination reveals intact shoulder shrug. He has gross weakness of the left rotator cuff. Deltoid function also appears to be diminished. Patient has markedly weak bicep and tricep. 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 Patient d oes have tenderness at the shoulder especially at the acromioclavicular joint, bicipital groove and along the lateral margin of the subacromial space. X-rays of the shoulder are not available. An MRI of the shoulder is reviewed. Unfortunately there is a fair amount of motion artifact. Findings are consistent with a full-thickness subscapularis and supraspinatus tear. Infraspinatus appears to be grossly intact as does the teres minor. Humeral head is somewhat high riding. Glenohumeral arthritis is prominent. Acromioclavicular joint arthritic changes are prominent with a type II acromion. Glenoid labrum appears to be markedly degenerative with Cesar probable tear. There are cystic changes superiorly. I do not visualize the biceps tendon, I suspect this is related to a chronic tear. Cervical spine MRI shows quite severe central and now stenosis in the midportion of the cervical spine. This is associated with multilevel bi-foraminal stenosis at multiple levels as well. 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 Recommendation: At this time I would not recommend anything definitive for the shoulder. I suspect that the rotator cuff tears are chronic in nature though he may have had completion of a partial tear more recently. The retracted cuff tears are suggestive of a less acute process. If the patient is having marked amount of pain could consider subacromial steroid injection for relief. The patient understands that definitive treatment would require surgical intervention though I do not recommend any such treatment at this time. In regards to his left radial nerve palsy would recommend the patient begin occupational therapy treatment and be placed into a wrist and finger extension splint to avoid a flexion contracture. Further workup and evaluation per neurology who is attending to the patient as well. Thank you very much for allowing me to seen care for Mr. Lobo. Sincerely, Phoenix Bajwa,DO Past Med Surg Social Fam HX - Past Medical History Medical history: arthritis, COPD, hyperlipidemia, hypertension, other Additional medical history: bells palsy Psychiatric history: depression - Past Surgical History Surgical History: sinus surgery, tonsillectomy Additional surgical history: coronary stents - Social History Smoking Status: Current every day smoker Smokeless Tobacco Status: No Alcohol use: none Drug use: none - Family History Father Living Status: Age at : 61 Cause of : cancer Hx Family Cancer: Yes Mother Age: 80 Living Status: Still Living Hx Family Cardiac Disorders: Yes Hx Family Cancer: Yes Hx Family Endocrine Disorder: Yes (DM) Medications and Allergies Acetaminophen [Pain Reliever] 500 mg PO Q6H PRN #120 tablet 06/29/18 [Rx] Albuterol Sulfate [Albuterol Inhaler] 2 puff IH Q4HR PRN #1 inhaler 06/29/18 [Rx] Aspirin Enteric Coated [Aspirin EC] 81 mg PO DAILY #30 tablet.dr 06/29/18 [Rx] Ipratropium/Albuterol Neb [Duoneb] 3 ml IH Q6H PRN #120 vial 06/29/18 [Rx] Isosorbide MONOnitrate (24 HR) [Imdur] 30 mg PO DAILY #30 tab.er.24h 06/29/18 [Rx] Lisinopril/Hydrochlorothiazide [Zestoretic 20-25 mg Tablet] 1 tab PO DAILY #30 tablet 06/29/18 [Rx] Loratadine [Claritin] 10 mg PO DAILY #30 tablet 06/29/18 [Rx] Metoprolol Tartrate 50 mg PO DAILY #30 tablet 06/29/18 [Rx] Multivitamin [Daily Multiple Vitamin] 1 tab PO DAILY #30 tablet 06/29/18 [Rx] Omeprazole [PriLOSEC] 20 mg PO DAILY #30 capsule. 06/29/18 [Rx] Simvastatin [Zocor] 40 mg PO DAILY #30 tablet 06/29/18 [Rx] Allergy/AdvReac Type Severity Reaction Status Date / Time doxycycline AdvReac See Verified 07/11/18 13:53 Comments Penicillins AdvReac Hives Verified 07/11/18 13:53 Sulfa (Sulfonamide AdvReac NOSE BLEEDS Verified 07/11/18 13:53 Antibiotics) tetracycline [Tetracycline] AdvReac Difficulty Verified 07/11/18 13:53 Breathing All Systems Reviewed: The remainder of the systems were reviewed and are negative Physical Exam - Constitutional Vitals: Temp Pulse Resp BP Pulse Ox 98.2 F 90 19 138/87 91 07/13/18 19:24 07/13/18 19:24 07/13/18 19:24 07/13/18 19:24 07/13/18 20:53 Results - Labs Result Diagrams: 07/13/18 10:10 07/13/18 10:10 Labs: Abnormal lab results WBC 11.3 K/mcL (4.3-11.1) H 07/13/18 10:10 RBC 3.09 M/mcL (4.19-5.50) L 07/13/18 10:10 Hgb 9.4 g/dL (12.9-16.9) L 07/13/18 10:10 Hct 27.6 % (37.5-50.1) L 07/13/18 10:10 RDW 14.9 % (11.5-14.5) H 07/13/18 10:10 Plt Count 55 K/mcL (140-400) L 07/13/18 10:10 MPV 8.9 fL (9.4-12.4) L 07/13/18 10:10 16.0 % (0-4) H 07/11/18 14:59 5.0 % (0) H 07/13/18 10:10 3.0 % (0) H 07/13/18 10:10 4.0 % (0) H 07/11/18 14:59 2.0 % (0) H 07/13/18 10:10 9.0 K/mcL (1.6-8.9) H 07/12/18 12:08 0.5 K/mcL (0.6-4.6) L 07/12/18 12:08 1.6 K/mcL (0.0-1.3) H 07/12/18 01:19 0.7 K/mcL (0.0-0.6) H 07/11/18 14:59 Nucleated RBCs/100 WBC 2.5 /100 WBC (0) H 07/13/18 10:10 Present (Not Present) A 07/12/18 01:19 Decreased (Normal) L 07/13/18 10:10 1+ (Not Present) A 07/13/18 10:10 1+ (Not Present) A 07/12/18 12:08 Percent Retic 2.9 % (1.6-2.8) H 07/12/18 12:08 Retic Hgb Equivalent 37.2 pg (28.61-36.33) H 07/12/18 12:08 PT 12.6 Seconds (9.4-12.1) H 07/13/18 10:10 APTT 21.5 Seconds (26.0-36.0) L 07/12/18 01:19 ABG pO2 79 mmHg (85-104) L 07/12/18 10:59 Sodium 133 mEq/L (136-145) L 07/12/18 01:19 Potassium 3.4 mEq/L (3.5-5.1) L 07/12/18 11:30 Chloride 97 mEq/L (98-107) L 07/12/18 01:19 Carbon Dioxide 30 mEq/L (23-29) H 07/11/18 14:59 BUN 35 mg/dL (8-23) H 07/13/18 10:10 0.68 mg/dL (0.70-1.30) L 07/12/18 11:30 49 (6-26) H 07/13/18 10:10 Glucose 138 mg/dL (70-105) H 07/13/18 10:10 POC Glucose 150 mg/dL (70-99) H 07/13/18 11:04 278 (280-300) L 07/11/18 14:59 Lactic Acid 2.4 mmol/L (0.5-2.2) H 07/12/18 07:06 Phosphorus 5.4 mg/dL (2.7-4.5) H 07/12/18 01:19 > 1500 ng/mL (20-250) H 07/13/18 10:10 AST 43 Units/L (13-39) H 07/13/18 10:10 2104 Units/L (140-271) H 07/12/18 11:30 41 mg/L (Less than 10) H 07/11/18 14:59 5.5 g/dL (6.4-8.9) L 07/13/18 10:10 1.8 g/dL (2.4-3.5) L 07/13/18 10:10 Triglycerides 213 mg/dL (< 150) H 07/13/18 10:10 VLDL Cholesterol, Calc 43 mg/dL (< 31) H 07/13/18 10:10 27 mg/dL (40-59) L 07/13/18 10:10 5.7 (0-4.9) H 07/13/18 10:10 Ur Specific [place] > 1.030 (1.010-1.025) H 07/11/18 17:30 30 mg/dL (Neg-Trace) H 07/11/18 17:30 Ur Squamous Epith Cells Moderate per lpf (None-Few) H 07/11/18 17:30 CSF Tot Nucleated Cells 110 TNC/mcL (0-5) H* 07/13/18 13:40 80 mg/dL (40-70) H 07/13/18 13:40 108 mg/dL (15-45) H 07/13/18 13:40 H & H 07/13/18 Range/Units 10:10 Hgb 9.4 L (12.9-16.9) g/dL Hct 27.6 L (37.5-50.1) % All other labs normal. - Diagnostic results Shoulder MRI: image reviewed Cervical MRI with contrast: image reviewed Thoracic MRI with contrast: image reviewed Consult Discharge Plan - Plan Referrals: Pam Campbell DO [Resident] - 07/19/18 10:20 am
[2018-07-14] MEDS: Ipratropium/Albuterol Neb 3 ML IH SCH ×4 (04:04→22:33)
[2018-07-14 06:15] LABS: Hemoglobin 8.8 g/dL (12.9-16.9); Red Cell Distribution Width 15.1 % (11.5-14.5)
[2018-07-14 06:17] LABS: Hematocrit 26.3 % (37.5-50.1); Immature Platelets 2.7 % (1.1-6.1); Mean Corpuscular HGB Conc 33.5 g/dL (31.6-35.5); Mean Corpuscular Hemoglobin 30.4 pg (28.0-33.3); Mean Platelet Volume 9.9 fL (9.4-12.4); Nucleated Red Blood Cells 3.4 /100 WBC (0); Red Blood Count 2.89 M/mcL (4.19-5.50)
[2018-07-14 06:35] LABS: Alanine Aminotransferase 26 Units/L (7-52); Albumin 3.7 g/dL (3.5-5.7); Albumin/Globulin Ratio 2.1 (1.1-2.2); Alkaline Phosphatase 60 Units/L (34-104); Aspartate Amino Transferase 41 Units/L (13-39); BUN/Creatinine Ratio 46 (6-26); Bilirubin,Total 0.7 mg/dL (0.3-1.0); Blood Urea Nitrogen 28 mg/dL (8-23); Calcium 8.9 mg/dL (8.6-10.3); Carbon Dioxide 31 mEq/L (23-29); Chloride 98 mEq/L (98-107); Globulin 1.8 g/dL (2.4-3.5); Glucose 84 mg/dL (70-105); Osmolality,Calculated 293 (280-300); Potassium 3.5 mEq/L (3.5-5.1); Sodium 139 mEq/L (136-145); Total Protein 5.5 g/dL (6.4-8.9); eGFR For Non-African Americans > 60 (> 60)
[2018-07-14 07:03] LABS: Platelet Count 49 K/mcL (140-400)
[2018-07-14] MEDS: Insulin LISPRO 300 UNITS/3 ML VIAL SQ SCH ×3 (07:34→16:13)
--- NOTE | 2018-07-14 07:38 | Internal Med Progress Note ---
<Amadeo Beyer - Last Filed: 07/14/18 15:33> Hospitalist Progress Note - Encounter Date of Encounter: 07/14/18 Time of Encounter: 09:00 - Subjective Interval History: The patient is resting comfortably in bed at time of examination. He states that he is feeling significantly better than he was yesterday. He continues to be breathing decently at this time. He does wish that he was able to get up and walk around more. He says that he has not been allowed to take a shower because he is attached to the cafeteria monitor. Additionally he was seen by orthopedic surgery who did not recommend any surgical intervention at this time. - Exam Vitals: Temp Pulse Resp BP Pulse Ox 98.8 F 111 18 140/78 92 07/14/18 07:08 07/14/18 07:08 07/14/18 07:08 07/14/18 07:08 07/14/18 07:08 Exam: Gen: Vitals noted. No acute distress today, very pleasant on exam. Eyes: anicteric sclerae, moist conjunctivae; Pupils equal and reactive to light HENT: Atraumatic; oropharynx clear with moist mucous membranes and no mucosal ulcerations; normal hard and soft palate Neck: Trachea midline; supple, no thyromegaly or lymphadenopathy Cardiac: RRR, no murmur, +S1/S2 Pulmonary: Diffuse wheezing noted b/l on exam however markedly improved from yesterday Abdomen: soft, nontender, no guarding. No masses or hepatosplenomegaly MSK: ROM intact, no joint swelling noted Extremities: 1+ BLE edema, nontender calf, no cyanosis or clubbing Skin: Normal temperature, turgor and texture; no rash, ulcers or subcutaneous nodules Neuro: Right sided facial droop and left sided lid lag noted. Left upper extremity strength 2/5. Left lower extremity strength 4/5. Reflexes intact 2/4 b/l. Psych: Appropriate mood and behavior. A&Ox3 - Summary of Assessment and Plan Summary of Assessment and Plan: (1) Thrombocytopenia Current Visit: Yes Status: Acute Assessment and Plan: Platelets of 71 on admission, appears to be continuing from previous admission The patient also presents with leukocytosis and bands as well as blasts and promyelocytes Flow cytometry sent on prior admission ~2 weeks ago positive for Blasts Continue to have concerns that this may be an acute leukemia MRI L Shoulder and Brain both have changes in marrow concerning for myeloplastic changes Hematology was consulted previously and he plan for outpatient follow-up Unclear at this time if acute leukemia or blast crisis is present, appreciate oncology recommendation Plan for bone marrow biopsy today (2) 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 Suspect probable leukemia vs. 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 MRI T-spine shows Focal 1 mm disc protrusions at T2-3 and T8-9 without significant spinal canal stenosis or neural foraminal narrowing MRI Shoulder shows Near complete retracted full-thickness tear of Supraspinatus and full-thickness tear of subscapularis with retraction of fibers of insertion. Also shows mild infraspinatus tendinopathy and suspected tearing of the posteroinferior labrum. -> Also shows non-specific marrow changes Orthopedic surgery did see the patient, recommend occupational therapy + wrist splint with finger extension. 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 Started on prednisone taper and famciclovir as an outpatient Still has residual weakness in right face Head CTA negative for acute abnormalities Patient was on methylprednisolone for COPD exacerbation, however transitoned to PO steroids Neuro has been consulted for left UE weakness (5) COPD exacerbation Current Visit: Yes Status: Suspected Assessment and Plan: Patient rapidly developing acute shortness of breath and difficulty breathing Additionally, diffusely wheezy on exam and ABG does demonstrate hypoxia We will continue to support with oxygen and BiPAP as needed Duonebs, Continue 60mg PO Prednisone Continue azithromycin (6) Hypertension Current Visit: No Status: Chronic Assessment and Plan: BP Stable Continue home medications (7) Shoulder pain Current Visit: Yes Status: Acute Assessment and Plan: Patient with bilateral shoulder pain for past 9-10 days that radiates down both arms with tingling in fingers Denies trauma Patient has history of arthritis ESR normal, CRP elevated at 41 MRI significant for Multiple muscle tears and for tendinopathies as above Ortho has no recommendation for acute intervention as discussed above (8) Mediastinal mass Current Visit: Yes Status: Acute Assessment and Plan: CTA chest showed enlarged lymph node Similar to previous exams but new from more remote imaging Reactive vs neoplasm Patient has thrombocytopenia and was supposed to see heme/onc as outpatient Will consult hematology/oncology to evaluate Pulmonology was also consulted, consider bronchoscopy for biopsy if necessary (9) Elevated lactic acid level Current Visit: Yes Status: Acute Assessment and Plan: Lactic acid 2.9 on admission, improved. Also with mildly elevated WBC of 12, but patient was recently on prednisone Given empiric antibiotics in ED Patient has a productive cough and was recently treated for pneumonia CXR shows no acute abnormality CTA chest not overly concerning for pneumonia, does show some infiltration in mediastinal fat UA not suspicious for UTI On azithromycin for COPD exacerbation Repeat lactic acid in AM Consulted ID for concern of underlying infectious process of unclear etiology I do not suspect that this is sepsis, high risk for fluid overload We will hold further fluids at this time (10) Hyperlipidemia Current Visit: No Status: Chronic Assessment and Plan: Continue home medications (11) GERD (gastroesophageal reflux disease) Current Visit: No Status: Chronic Assessment and Plan: Continue home medication (13) Acute respiratory failure Current Visit: Yes Status: Acute Assessment and Plan: Acute hypoxic respiratory failure, significantly improved Patient did have significant amounts of fluid, possibly vascular congestion Chest x-ray does demonstrate vascular congestion Chest CT is not significant for any consolidation or edematous process Will continue to monitor, will ask for pulm reconsult as needed Supplement O2 and use BiPAP PRN (12) DVT prophylaxis Current Visit: No Status: Acute Assessment and Plan: Subcutaneous heparin - Time Spent with Patient Total time spent is greater than 50% in coordination of care (as documented) at patient's floor/unit and/or counseling patient: Internal Medicine: Result - Labs CBC & Chem 7: 07/14/18 05:59 07/14/18 05:59 Labs: Short CBC 07/13/18 07/14/18 Range/Units 10:10 05:59 WBC 11.3 H 11.2 H (4.3-11.1) K/mcL Hgb 9.4 L 8.8 L (12.9-16.9) g/dL Hct 27.6 L 26.3 L (37.5-50.1) % Plt Count 55 L 49 L (140-400) K/mcL Neutrophils # 7.2 (1.6-8.9) K/mcL BMP 07/13/18 07/14/18 10:10 05:59 Sodium 136 139 Potassium 3.7 3.5 Chloride 101 98 Carbon Dioxide 29 31 H BUN 35 H 28 H Creatinine 0.71 0.61 L Glucose 138 H 84 Calcium 8.8 8.9 Liver Function 07/13/18 07/14/18 Range/Units 10:10 05:59 Total Bilirubin 0.6 0.7 (0.3-1.0) mg/dL AST 43 H 41 H (13-39) Units/L ALT 25 26 (7-52) Units/L Alkaline Phosphatase 58 60 (34-104) Units/L Albumin 3.7 3.7 (3.5-5.7) g/dL - ABG Interpretation ABG results: ABG ABG pH 7.44 pH Units (7.32-7.45) 07/12/18 10:59 ABG pCO2 37 mmHg (35-45) 07/12/18 10:59 ABG pO2 79 mmHg (85-104) L 07/12/18 10:59 ABG O2 Saturation 96 % (95-98) 07/12/18 10:59 PT/INR, D-dimer PT 12.6 Seconds (9.4-12.1) H 07/13/18 10:10 - Impressions Impressions Bone Marrow Biopsy w/ CT 07/13/18 00:00 IMPRESSION: CT-guided bone marrow biopsy of the left iliac bone, with successful core. However, a dry tap was encountered. When discussing a re-attempt with the patient, he was unwilling to proceed with any additional attempt at this time. D/ / Godfrey Hinds MD / Godfrey Hinds MD Interpreting Provider: Godfrey Hinds MD Shoulder MRI 07/13/18 07:35 IMPRESSION: 1. Near complete retracted full-thickness tear of supraspinatus measuring an estimated 2.2 cm in greatest AP dimension. 1.9 cm of retraction of the torn fibers from the footplate. Essentially complete full-thickness tear of subscapularis with retraction of the fibers from the insertion measuring an estimated 2.5 cm. 2. Mild infraspinatus tendinopathy. Moderate edema throughout infraspinatus muscle. Mild atrophy and fatty degeneration of infraspinatus. 3. Moderate atrophy and fatty degeneration of subscapularis. 4. Suspected tearing of the posteroinferior labrum and suspected 3 mm posterior labral paralabral cyst at 9 o'clock suggesting underlying labral tearing. Mild diffuse underlying labral degeneration. 5. Moderate glenohumeral chondromalacia. 6. Nonspecific marrow signal abnormality with relative sparing of the proximal left humeral epiphysis. Differential considerations include red marrow reconversion, marrow replacement disorders, or proliferative marrow disorders. 7. Nonvisualization of the intra-articular long head of the biceps tendon which could be related to tearing or severe thinning. 8. Please note exam is limited due to patient motion. D/ : / 07/13/2018 09:13:16 Jaun Rendon MD / [facility] Interpreting Provider: Jaun Rendon MD Thoracic Spine MRI 07/13/18 08:05 IMPRESSION: Focal 1 mm disc protrusions at T2-3 and T8-9 without significant spinal canal stenosis or neural foraminal narrowing evident within the thoracic spine. D/ / 07/13/2018 09:09:13 Cruz Campbell MD / [facility] Interpreting Provider: Cruz Campbell MD Lumbar Puncture Fluoroscopy 07/13/18 12:00 IMPRESSION: Successful fluoroscopic-guided lumbar puncture. D/ / 07/13/2018 15:22:52 Felix Camacho MD / [facility] Interpreting Provider: Felix Camacho MD Consult Discharge Plan - Plan Referrals: Pam Campbell DO [Resident] - 07/19/18 10:20 am <Estuardo Najera - Last Filed: 07/14/18 17:12> Hospitalist Progress Note - Encounter Date of Encounter: 07/14/18 Internal Medicine: Result - Labs CBC & Chem 7: 07/14/18 05:59 07/14/18 05:59 - Attending Attestation Patient seen and examined independently, including review of objective data including labs. I agree with plan of care as documented above by the resident with the following comments: Concern for leukemia, myelofibrosis, or infiltrative marrow process, complicated by paraneoplastic syndrome causing neurologic impairment as noted (chinchilla's palsy and LUE weakness). Multiple labs still pending, including bone marrow biopsy obtained 07/13, but LP shows CSF w 110 WBCs of which 85% are lymphocytes, as well as elevated glucose 80 and protein 108. Will await marrow results and per Oncology pt able to discharge if clinically stable for close outpatient follow up.
[2018-07-14] MEDS: *HR* Heparin 5,000 UNIT/ML VIAL SQ SCH ×2 (08:51→16:56)
[2018-07-14] MEDS: predniSONE 20 MG TABLET PO SCH (08:52)
[2018-07-14] MEDS: Thiamine (B-1) 100 MG TABLET PO SCH (08:52)
[2018-07-14 10:07] LABS: Anisocytosis 1+ (Not Present); Eosinophils # 0.5 K/mcL (0.0-0.6); Lymphocytes # 2.1 K/mcL (0.6-4.6); Monocytes # 0.3 K/mcL (0.0-1.3); Neutrophils # 6.6 K/mcL (1.6-8.9); Platelet Estimate Marked Decrease (Normal); Polychromasia 2+ (Not Present)
[2018-07-14] MEDS: Budesonide/Formoterol 160/4.5 1 PUFF INH IH SCH ×2 (10:51→22:33)
--- NOTE | 2018-07-14 10:59 | Oncology Inp Progress Note ---
<Seema Seth L - Last Filed: 07/14/18 16:39> Date of Encounter: 07/14/18 Time of Encounter: 10:30 (1) Thrombocytopenia Current Visit: Yes Status: Acute Assessment and plan: Patient now represents for bilateral upper extremity weakness (L>R) and shoulder pain. Now presents with neutrophil predominant leukoocytosis ( has also been on steroids for COPD exacerbation) as well as anemia and continued thrombocytopenia Peripheral flow reveals abnormal myeloid blast cell population, Peripheral smear reveals 4% blasts Plan: Concerning for underlying myeloid neoplastic process His LDH is significantly elevated at ~2000, concerning for potential leukemic process bcr abl, calr exon 19, haptoglobin, JAK2 and MPL codon--- pending PSA normal Neurology on board, appreciate recommendations, paraneoplastic workup has been initiated Lumbar puncture ordered today per neuro-I did add cytology and flow cytometry to CSF Further recommendations pending BMB report---marrow was a dry tap, but good bone sampling received, we will await results I did call [facility] today and touch base with [facility] again tomorrow for potential preliminary report. If acute leukemia is suspected or confirmed we will transfer to [facility]. (2) Left arm weakness Current Visit: Yes Status: Acute Assessment and plan: [place] MRI with multiple findings to explain patients LUE weakness and limited ROM [id number] retracted full-thickness tear of supraspinatus, essentially a complete full-thickness tear of the subscapularis with retraction, mild infraspinatus tendinopathy, moderate atrophy of the subscapularis. Suspected tearing of the posterior inferior labrum. Moderate glenohumeral chondromalacia. Nonspecific marrow signal abnormality with sparing of the right minimal left humeral epiphysis. Oncology: Subj Interval history: Mr. Lobo is resting comfortably. No acute events noted overnight. He endorses that he is distressed over being in the hospital and his new diagnosis which may include the possibility of leukemia. Verbal support provided, we discussed variable treatment options that will be available to him as well as the fact that no diagnosis is yet known, encouraged him to remain positive. Appetite remains stable. He denies pain, nausea, vomiting, diarrhea, constipations, fevers or chills. - Constitutional General appearance: cooperative, no acute distress, no febrile - Head Head exam: Present: atraumatic - Eye Additional comments: right eye ptosis and right sided facial droop - ENT ENT exam: Present: mucous membranes moist, normal oropharynx - Respiratory Respiratory exam: Present: wheezes. Absent: respiratory distress - Cardiovascular Cardiovascular exam: Present: RRR - GI/Abdominal GI/Abdominal exam: Present: normal bowel sounds, soft. Absent: tenderness - Extremities Exam Extremities exam: Present: normal inspection. Absent: calf tenderness - Neurological Exam Neurological exam: Present: alert, oriented X3 Additional comments: limited ROM of bilateral shoulders L>R, unable to process designer with left hand - Psychiatric Psychiatric exam: Present: depressed - Skin Skin exam: Present: dry, normal color, warm Oncology: Obj Data - Labs CBC & Chem 7: 07/14/18 05:59 07/14/18 05:59 Consult Discharge Plan - Plan Referrals: Pam Campbell DO [Resident] - 07/19/18 10:20 am Inpatient Charges Provider: Dr. Yamini Varela <NicholeHank Pichardo - Last Filed: 07/14/18 21:11> Date of Encounter: 07/14/18 Oncology: Obj Data - Labs CBC & Chem 7: 07/14/18 05:59 07/14/18 05:59 Inpatient Charges Provider: Dr. Yamini Varela Follow up - Inpatient: [id number] - Attending Attestation I examined this patient and my medical decision-making was reviewed with the Advanced Practice Nurse. I agree with the documented findings, disposition and treatment plan as described except to the extent set forth below. Mr. Lobo is doing a bit better today. He is breathing more easily. He has been ambulatory. He is eating better as well. Bone marrow biopsy myeloproliferative workup are still pending. Hopefully we will have her preliminary result tomorrow, possibly Wednesday. Exam shows a stable Chinchilla's palsy. Left arm strength is unchanged. Lungs are clear to auscultation. I think it is reasonable to proceed with discharge planning. He is clinically stable and I will arrange for follow-up with me next week if his bone marrow biopsy has returned acute leukemia tomorrow, please arrange for transfer to [facility] for further management.
--- NOTE | 2018-07-14 11:34 | Infectious Disease Progress No ---
ID Progress Note Date of Encounter: 07/14/18 Time of Encounter: 09:30 - Subjective Subjective: Patient seen and examined. No acute events overnight. Patient resting quietly in bed. Denies acute complaints. Reports some shortness of breath with a cough with clear sputum. Denies fevers, chills, rigors. Denies headache or neck pain. Reports lower back pain that is chronic for him. Continues to report some weakness in the bilateral upper extremities, left greater than right. He states the right-sided facial droop is about the same. Denies nausea, vomiting, diarrhea, constipation. Had a BM this morning. Denies abdominal pain or urinary complaints. States his appetite is good. Denies oral thrush or skin lesions. - Objective CBC & Chem 7: 07/15/18 05:16 07/15/18 05:16 - Exam Vitals: Temp Pulse Resp BP Pulse Ox 98.8 F 111 18 140/78 93 07/14/18 07:08 07/14/18 07:08 07/14/18 10:51 07/14/18 07:08 07/14/18 10:51 Exam: Head: Atraumatic, normal inspection, normocephalic. Eye: EOMI, PERRLA, no scleral icterus noted. ENT: Mucous membranes moist. No odontogenic infection noted. Neck: Normal inspection, no meningismus. Supple, nontender. Respiratory: Faint expiratory wheezes noted to the left upper and left lower lobes. No rales, respiratory distress, rhonchi noted. Cardiovascular: Regular rate and rhythm, S1 and S2 audible. No murmurs, rubs, or gallops. GI: Soft, nondistended, normal bowel sounds. Extremities: No joint swelling, pedal edema, or tenderness noted. Back: Normal inspection. No vertebral tenderness noted. Neurological: Alert, oriented 3, weakness noted to the bilateral upper extremities, left greater than right. Right-sided facial droop persists, unchanged. Psychiatric: normal affect, normal mood. Skin: Dry, intact, warm. Normal color. No rashes. - Assessment and Plan (1) Leukocytosis Current Visit: Yes Status: Acute WBC elevated on admission: Steroid-related versus malignancy. 15% bands with 5% blasts noted on peripheral smear. Cytology revealed abnormal myeloid blasts. Hem/Onc consulted. Status post BMBx 07/13/18. Qualifiers: Leukocytosis type: bandemia Qualified Code(s): D72.825 - Bandemia SNOMED Code(s): 073091009, 844710155 (2) Mediastinal mass Current Visit: Yes Status: Acute CTA of the chest showed redemonstration of an enlarged AP window lymph node, similar when compared to previous exams that is, however, new when compared to more remote examinations. Although this could be reactive, neoplasm is of concern. Etiology: Unclear. Concern for malignancy given the patient's abnormalities on his CBC and differential and peripheral smear. Does not appear infectious however. Pulmonology consulted and following. SNOMED Code(s): 89818731 (3) Left arm weakness Current Visit: Yes Status: Acute Likely secondary to radial nerve palsy per ortho. Neurology consulted. Cervical spine MRI was a motion degraded exam, but did show multilevel dege nerative thecal sac narrowing and neural foraminal stenosis. MRI of the left shoulder showed near-complete retracted full-thickness tear of the supraspinatus and essentially complete full-thickness tear of subscapularis with retraction of the fibers from the insertion. There is also suspected teari ng of the posterior inferior labrum and suspected posterior labral apparently labile cyst suggesting underlying labral tearing with mild diffuse underlying labral degeneration. There is nonspecific marrow signal abnormality with relative sparing of the proximal left humeral epiphysis with differential considerations including red marrow Reconversion, [place] replacement disorders, or proliferative marrow disorders. Status post LP 07/13/18 that had 100 total neutrophil count with 85% lymphocytes, elevated glucose, and elevated protein. Clinically, the patient has no meningeal signs and I do not think this is infectious. SNOMED Code(s): 540414582 (4) Chinchilla's palsy Current Visit: Yes Status: Acute Completed course of oral Valtrex. Currently on steroids. Symptoms unchanged per patient report. SNOMED Code(s): 679945216 (5) COPD (chronic obstructive pulmonary disease) Current Visit: Yes Status: Chronic CTA of the chest negative for infectious etiology. Continues to have wheezing on exam. Supportive care per the primary team. Qualifiers: COPD type: unspecified COPD Qualified Code(s): J44.9 - Chronic obstructive pulmonary disease, unspecified SNOMED Code(s): 69854626 (6) Coronary artery disease Current Visit: No Status: Chronic Qualifiers: Coronary Disease-Associated Artery/Lesion type: [place] artery [place] vs. transplanted heart: [place] heart Associated angina: without angina Qualified Code(s): I25.10 - Atherosclerotic heart disease of [place] coronary artery without angina pectoris SNOMED Code(s): 68109445 (7) Hyperlipidemia Current Visit: No Status: Chronic Qualifiers: Hyperlipidemia type: mixed hyperlipidemia Qualified Code(s): E78.2 - Mixed hyperlipidemia SNOMED Code(s): 01685071 (8) Tobacco abuse Current Visit: No Status: Chronic SNOMED Code(s): 773449993 (9) Allergy to multiple antibiotics Current Visit: Yes Status: Acute Exact reaction not known (unable to obtain from patient). SNOMED Code(s): 615251227954919 - Recommendations Recommendations: Await blood cultures to finalize. Await findings from bone marrow biopsy. Await CSF studies. Further recommendations to follow from the hematology/oncology team. Left arm weakness workup and treatment per the neurology and orthopedics teams. Continue azithromycin 500 mg IV daily. Duration of treatment depends on the clinical picture. Monitor renal function and dose adjust antibiotics. Consult Discharge Plan - Plan Referrals: Pam Campbell DO [Resident] - 07/19/18 10:20 am - Attending Attestation I have personally performed a face to face evaluation on this patient. I have reviewed and agree with the care plan. History and Exam by me shows: Assessment and plan: Mediastinal lymphadenopathy Left arm weakness with a tear of the infraspinatus tendon [place] radial nerve palsy Concern for malignancy Pleocytosis Chinchilla's palsy Coronary artery disease Multiple drug allergies Recommendations: At this point I had a long discussion with Dr. Varela the optical scientist. Patient's Chinchilla's palsy, having last on the peripheral smear and the abnormal flow cytometry also just that the patient has some kind of leukemia. ANDRE versus AML. That could explain the Chinchilla's palsy and the lymphadenopathy and the mediastinal window and even the pleocytosis. I do not believe the patient has any infection at this point. Patient is taken azithromycin for COPD exacerbation. We will continue to observe off antibiotics. No need to treat with antibiotics for the pleocytosis.
--- NOTE | 2018-07-14 11:39 | Neurology Progress Note ---
<Josep Frazier - Last Filed: 07/14/18 11:36> Date of Encounter: 07/14/18 Time of Encounter: 11:36 Assessment and Plan (1) Left arm weakness Current Visit: Yes Status: Acute Clinically, the patient remains stable without any further neurological deficits on exam. Workup for an acute peripheral autoimmune inflammatory neuropathy versus malignancy remains pending. 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 Continue with medical and supportive care. Neurology will continue to follow. ID, hematology/oncology and pulmonolo gy following; recommendations appreciated. Completed Imaging: Cervical MRI-motion degraded exam but multilevel the thecal sac narrowing and neural foraminal stenosis found. No spinal canal stenosis found Thoracic MRI-focal 1 mm disc protrusions at T2-3 and at T8-9 without significant spinal canal stenosis or neural foraminal narrowing evident within the T-spine. Bone marrow signal intensity is normal MRI of shoulder-findings consistent with chronic full-thickness subscapularis and supraspinatus tear Studies: CSF with protein 108, glucose 80, nucleated cells 110; not thought to be caused by an acute RETAIL WIRELESS ASSOCIATE infectious process. ID following, recommendations appreciated. CSF JESSICA pending Paraneoplastic workup pending-m anti-HTN, anti-RI, anti-VG CBC, anti-GM 1, anti- mh -Serum electrophoresis and immunoelectrophoresis (2) Chinchilla's palsy Current Visit: Yes Status: Acute Subjective Principal diagnosis: Left arm weakness Interval history: The patient was seen at the bedside in follow-up today for bilateral leg weakness, left arm weakness and shoulder pain. Etiology for left arm weakness multifactorial with chronic full-thickness rotator cuff tearing is likely being worsened by current underlying illness. Clinically, the patient is stable without any acute neurological deficits overnight. Persistent right-sided facial droop secondary to Chinchilla's palsy without any acute changes. Labs reviewed this morning and paraneoplastic workup is pending, bone marrow biopsy also pending. This was discussed with the patient. Additionally, I discussed CSF re sults and inform the patient that the total nucleated cells now likely result of an acute infection. Objective - Constitutional Vitals: Temp Pulse Resp BP Pulse Ox 98.8 F 111 18 140/78 93 07/14/18 07:08 07/14/18 07:08 07/14/18 10:51 07/14/18 07:08 07/14/18 10:51 Exam: Examination: General Examination: *CONSTITUTIONAL: Alert and oriented x3, calm, cooperative no acute distress *GENERAL APPEARANCE OF PATIENT ill appearing elderly male *EYES: pupils equal, round, reactive to light and accommodation, conjunctiva clear without masses or ulcerations, fundi normal. *CARDIOVASCULAR no peripheral edema, distal temperature normal, dorsalis pedis pulses normal. see vitals Musculoskeletal: *GAIT AND STATION deferred *ASSESSMENT OF MUSCLE STRENGTH IN THE UPPER AND LOWER EXTREMITIES right deltoid, bicep, tricep, assembler caterpillar spider strength, bilateral hip flexors ,anterior tibialis, dorsoflexion of the foot 5/5. Left deltoid, & tricep 2/5 strength with left wrist drop; pain with tricep extension and with attempt at shoulder adduction and abduction unable to adduct or abduct, right bicep and assembler caterpillar spider strength 4/5, *MUSCLE TONE IN THE UPPER AND LOWER EXTREMITIES normal. No abnormal movements, fasciculations or atrophy identified. Neurological: *ORIENTATION to person, situation, time and place *RECURRENT AND REMOTE MEMORY intact *ATTENTION AND CONCENTRATION are normal *LANGUAGE FUNCTION no significant aphasia or dysarthia was noted. *FUND OF KNOWLEDGE aware of current events, past history, vocabulary *MENTAL attention span and concentration normal. *CN II optic fundi were normal, no papilledema noted. *CN III,IV, PERRLA extraocular eye movements were full, no nystagmus. Right eye ptosis present *CN V shows normal sensation and jaw opens asymmetrically with right mouth droop; recent diagnosis of Chinchilla's palsy *CN VII shows abnormal facial movement; right mouth droop with right eye ptosis upper and lower bilaterally. *CN VIII shows no significant hearing loss on exam *CN IX,,X palate elevated symmetrically *CN XI asymmetrical strength in the sternocleidomastoid muscles with right SCM stronger than left, asymmetrical shoulder shrugging. *CN XII tongue protruded in the midline, with normal strength and movement. *SENSORY EXAMINATION light touch intact *REFLEXES: deep tendon reflexes continue to be diminished diffusely, no pathological reflexes were noted. *CEREBELLAR TESTING normal finger to nose with right arm, abnormal with left due to arm weakness *PAIN LEVEL persistent left shoulder and arm pain Results - Laboratory Findings CBC and BMP: 07/14/18 05:59 07/14/18 05:59 Abnormal lab findings: Abnormal lab results WBC 11.2 K/mcL (4.3-11.1) H 07/14/18 05:59 RBC 2.89 M/mcL (4.19-5.50) L 07/14/18 05:59 Hgb 8.8 g/dL (12.9-16.9) L 07/14/18 05:59 Hct 26.3 % (37.5-50.1) L 07/14/18 05:59 RDW 15.1 % (11.5-14.5) H 07/14/18 05:59 Plt Count 49 K/mcL (140-400) L 07/14/18 05:59 MPV 8.9 fL (9.4-12.4) L 07/13/18 10:10 15.0 % (0-4) H 07/14/18 05:59 8.0 % (0) H 07/14/18 05:59 1.0 % (0) H 07/14/18 05:59 1.0 % (0) H 07/14/18 05:59 5.0 % (0) H 07/14/18 05:59 9.0 K/mcL (1.6-8.9) H 07/12/18 12:08 0.5 K/mcL (0.6-4.6) L 07/12/18 12:08 1.6 K/mcL (0.0-1.3) H 07/12/18 01:19 0.7 K/mcL (0.0-0.6) H 07/11/18 14:59 Nucleated RBCs/100 WBC 3.4 /100 WBC (0) H 07/14/18 05:59 Present (Not Present) A 07/12/18 01:19 Marked Decrease (Normal) L 07/14/18 05:59 2+ (Not Present) A 07/14/18 05:59 1+ (Not Present) A 07/14/18 05:59 Percent Retic 2.9 % (1.6-2.8) H 07/12/18 12:08 Retic Hgb Equivalent 37.2 pg (28.61-36.33) H 07/12/18 12:08 PT 12.6 Seconds (9.4-12.1) H 07/13/18 10:10 APTT 21.5 Seconds (26.0-36.0) L 07/12/18 01:19 ABG pO2 79 mmHg (85-104) L 07/12/18 10:59 Sodium 133 mEq/L (136-145) L 07/12/18 01:19 Potassium 3.4 mEq/L (3.5-5.1) L 07/12/18 11:30 Chloride 97 mEq/L (98-107) L 07/12/18 01:19 Carbon Dioxide 31 mEq/L (23-29) H 07/14/18 05:59 BUN 28 mg/dL (8-23) H 07/14/18 05:59 0.61 mg/dL (0.70-1.30) L 07/14/18 05:59 46 (6-26) H 07/14/18 05:59 Glucose 138 mg/dL (70-105) H 07/13/18 10:10 POC Glucose 167 mg/dL (70-99) H 07/13/18 18:54 278 (280-300) L 07/11/18 14:59 Lactic Acid 2.4 mmol/L (0.5-2.2) H 07/12/18 07:06 Phosphorus 5.4 mg/dL (2.7-4.5) H 07/12/18 01:19 > 1500 ng/mL (20-250) H 07/13/18 10:10 AST 41 Units/L (13-39) H 07/14/18 05:59 2104 Units/L (140-271) H 07/12/18 11:30 41 mg/L (Less than 10) H 07/11/18 14:59 5.5 g/dL (6.4-8.9) L 07/14/18 05:59 1.8 g/dL (2.4-3.5) L 07/14/18 05:59 Triglycerides 213 mg/dL (< 150) H 07/13/18 10:10 VLDL Cholesterol, Calc 43 mg/dL (< 31) H 07/13/18 10:10 27 mg/dL (40-59) L 07/13/18 10:10 5.7 (0-4.9) H 07/13/18 10:10 Ur Specific [place] > 1.030 (1.010-1.025) H 07/11/18 17:30 30 mg/dL (Neg-Trace) H 07/11/18 17:30 Ur Squamous Epith Cells Moderate per lpf (None-Few) H 07/11/18 17:30 CSF Tot Nucleated Cells 110 TNC/mcL (0-5) H* 07/13/18 13:40 80 mg/dL (40-70) H 07/13/18 13:40 108 mg/dL (15-45) H 07/13/18 13:40 Consult Discharge Plan - Plan Referrals: Pam Campbell DO [Resident] - 07/19/18 10:20 am <Amadeo Marquez - Last Filed: 07/14/18 17:52> Date of Encounter: 07/14/18 Time of Encounter: 08:00 Assessment and Plan (1) Left arm weakness Current Visit: Yes Status: Acute I have personally performed a [id number] assessment of the patient and have r eviewed the PA/COUPON CLERK note. My impressions are as follows: Case was discussed with the WAFER SLICER. I agree with his assessment and plan as stated above. We will continue to follow. Cytology on the CSF is yet pending as well. (2) Chinchilla's palsy Current Visit: Yes Status: Acute Subjective Interval history: The chart was reviewed, the patient was seen and examined independently this morning. Case was also discussed with the WAFER SLICER. At this time patient is getting somewhat anxious and wishing to be discharged. I did explain to this patient the importance of remaining in the hospital until we can make a definitive diagnosis so we can render effective treatment. His neurologic examination for the most part has remained stable. Although he does have left rotator cuff tearing there must be some additional neurologic component to consider because of the left wrist drop, as well as the right facial droop. I also suspect that the CSF results a more than likely reflective of an underlying m yeloproliferative or neoplastic process. 85% of the cells were lymphocytes. However he is not really manifesting with signs of central nervous system infection. It is also known the leukemia and lymphoma are both diagnoses to be considered in those individuals with acute facial palsy. Objective - Constitutional Vitals: Temp Pulse Resp BP Pulse Ox 98.2 F 90 17 122/77 100 07/14/18 16:00 05/30/19 16:00 07/14/18 16:00 07/14/18 16:00 07/14/18 16:00 Exam: I have personally performed a [id number] assessment of the patient and have reviewed the PA/COUPON CLERK note. My impressions are as follows: I agree with the documentation of the neurologic examination as stated above. Results - Laboratory Findings CBC and BMP: 07/14/18 05:59 07/14/18 05:59 Abnormal lab findings: Abnormal lab results WBC 11.2 K/mcL (4.3-11.1) H 07/14/18 05:59 RBC 2.89 M/mcL (4.19-5.50) L 07/14/18 05:59 Hgb 8.8 g/dL (12.9-16.9) L 07/14/18 05:59 Hct 26.3 % (37.5-50.1) L 07/14/18 05:59 RDW 15.1 % (11.5-14.5) H 07/14/18 05:59 Plt Count 49 K/mcL (140-400) L 07/14/18 05:59 MPV 8.9 fL (9.4-12.4) L 07/13/18 10:10 15.0 % (0-4) H 07/14/18 05:59 8.0 % (0) H 07/14/18 05:59 1.0 % (0) H 07/14/18 05:59 1.0 % (0) H 07/14/18 05:59 5.0 % (0) H 07/14/18 05:59 9.0 K/mcL (1.6-8.9) H 07/12/18 12:08 0.5 K/mcL (0.6-4.6) L 07/12/18 12:08 1.6 K/mcL (0.0-1.3) H 07/12/18 01:19 0.7 K/mcL (0.0-0.6) H 07/11/18 14:59 Nucleated RBCs/100 WBC 3.4 /100 WBC (0) H 07/14/18 05:59 Present (Not Present) A 07/12/18 01:19 Marked Decrease (Normal) L 07/14/18 05:59 2+ (Not Present) A 07/14/18 05:59 1+ (Not Present) A 07/14/18 05:59 Percent Retic 2.9 % (1.6-2.8) H 07/12/18 12:08 Retic Hgb Equivalent 37.2 pg (28.61-36.33) H 07/12/18 12:08 PT 12.6 Seconds (9.4-12.1) H 07/13/18 10:10 APTT 21.5 Seconds (26.0-36.0) L 07/12/18 01:19 ABG pO2 79 mmHg (85-104) L 07/12/18 10:59 Sodium 133 mEq/L (136-145) L 07/12/18 01:19 Potassium 3.4 mEq/L (3.5-5.1) L 07/12/18 11:30 Chloride 97 mEq/L (98-107) L 07/12/18 01:19 Carbon Dioxide 31 mEq/L (23-29) H 07/14/18 05:59 BUN 28 mg/dL (8-23) H 07/14/18 05:59 0.61 mg/dL (0.70-1.30) L 07/14/18 05:59 46 (6-26) H 07/14/18 05:59 Glucose 138 mg/dL (70-105) H 07/13/18 10:10 POC Glucose 167 mg/dL (70-99) H 07/13/18 18:54 278 (280-300) L 07/11/18 14:59 Lactic Acid 2.4 mmol/L (0.5-2.2) H 07/12/18 07:06 Phosphorus 5.4 mg/dL (2.7-4.5) H 07/12/18 01:19 > 1500 ng/mL (20-250) H 07/13/18 10:10 AST 41 Units/L (13-39) H 07/14/18 05:59 2104 Units/L (140-271) H 07/12/18 11:30 41 mg/L (Less than 10) H 07/11/18 14:59 5.5 g/dL (6.4-8.9) L 07/14/18 05:59 1.8 g/dL (2.4-3.5) L 07/14/18 05:59 Triglycerides 213 mg/dL (< 150) H 07/13/18 10:10 VLDL Cholesterol, Calc 43 mg/dL (< 31) H 07/13/18 10:10 27 mg/dL (40-59) L 07/13/18 10:10 5.7 (0-4.9) H 07/13/18 10:10 Ur Specific [place] > 1.030 (1.010-1.025) H 07/11/18 17:30 30 mg/dL (Neg-Trace) H 07/11/18 17:30 Ur Squamous Epith Cells Moderate per lpf (None-Few) H 07/11/18 17:30 CSF Tot Nucleated Cells 110 TNC/mcL (0-5) H* 07/13/18 13:40 80 mg/dL (40-70) H 07/13/18 13:40 108 mg/dL (15-45) H 07/13/18 13:40
[2018-07-14] MEDS: Ketorolac 30 MG/ML VIAL IVP PRN (20:47)
[2018-07-15] MEDS: Azithromycin 500 MG in D5% in Water 250 ML IVPB SCH (01:20)
[2018-07-15] MEDS: Insulin LISPRO 300 UNITS/3 ML VIAL SQ SCH ×4 (01:23→18:56)
[2018-07-15] MEDS: Ipratropium/Albuterol Neb 3 ML IH SCH ×3 (04:37→15:53)
[2018-07-15 05:44] LABS: Mean Corpuscular HGB Conc 33.1 g/dL (31.6-35.5)
[2018-07-15 05:46] LABS: Hematocrit 25.7 % (37.5-50.1); Hemoglobin 8.5 g/dL (12.9-16.9); Immature Platelets 3.8 % (1.1-6.1); Mean Corpuscular Volume 90.8 fL (83.0-100.0); Mean Platelet Volume 9.6 fL (9.4-12.4); Nucleated Red Blood Cells 4.4 /100 WBC (0); Red Blood Count 2.83 M/mcL (4.19-5.50)
[2018-07-15 05:48] LABS: Platelet Count 41 K/mcL (140-400)
[2018-07-15 05:58] LABS: Alanine Aminotransferase 28 Units/L (7-52); Albumin 3.7 g/dL (3.5-5.7); Albumin/Globulin Ratio 2.2 (1.1-2.2); Alkaline Phosphatase 64 Units/L (34-104); Aspartate Amino Transferase 43 Units/L (13-39); BUN/Creatinine Ratio 32 (6-26); Bilirubin,Total 0.9 mg/dL (0.3-1.0); Blood Urea Nitrogen 19 mg/dL (8-23); Calcium 9.4 mg/dL (8.6-10.3); Carbon Dioxide 31 mEq/L (23-29); Chloride 95 mEq/L (98-107); Globulin 1.7 g/dL (2.4-3.5); Glucose 59 mg/dL (70-105); Osmolality,Calculated 284 (280-300); Sodium 137 mEq/L (136-145); Total Protein 5.4 g/dL (6.4-8.9); eGFR For Non-African Americans > 60 (> 60)
[2018-07-15] MEDS: *HR* Heparin 5,000 UNIT/ML VIAL SQ SCH (06:20)
[2018-07-15 06:26] LABS: Eosinophils # 0.2 K/mcL (0.0-0.6); Lymphocytes # 2.9 K/mcL (0.6-4.6); Neutrophils # 4.5 K/mcL (1.6-8.9); Platelet Estimate Marked Decrease (Normal); Polychromasia 1+ (Not Present)
--- NOTE | 2018-07-15 07:58 | Internal Med Progress Note ---
Hospitalist Progress Note - Encounter Date of Encounter: 07/15/18 - Exam Vitals: Temp Pulse Resp BP Pulse Ox 98.5 F 90 19 136/75 89 07/15/18 04:54 07/15/18 04:54 07/15/18 04:54 07/15/18 04:54 07/15/18 04:54 - Time Spent with Patient Total time spent is greater than 50% in coordination of care (as documented) at patient's floor/unit and/or counseling patient: Internal Medicine: Result - Labs CBC & Chem 7: 07/15/18 05:16 07/15/18 05:16 Labs: Short CBC 07/14/18 07/15/18 Range/Units 05:59 05:16 WBC 11.9 H (4.3-11.1) K/mcL Hgb 8.5 L (12.9-16.9) g/dL Hct 25.7 L (37.5-50.1) % Plt Count 41 L (140-400) K/mcL Neutrophils # 6.6 4.5 (1.6-8.9) K/mcL BMP 07/15/18 05:16 Sodium 137 Potassium 4.0 Chloride 95 L Carbon Dioxide 31 H BUN 19 Creatinine 0.59 L Glucose 59 L Calcium 9.4 Liver Function 07/15/18 Range/Units 05:16 Total Bilirubin 0.9 (0.3-1.0) mg/dL AST 43 H (13-39) Units/L ALT 28 (7-52) Units/L Alkaline Phosphatase 64 (34-104) Units/L Albumin 3.7 (3.5-5.7) g/dL - ABG Interpretation ABG results: ABG ABG pH 7.44 pH Units (7.32-7.45) 07/12/18 10:59 ABG pCO2 37 mmHg (35-45) 07/12/18 10:59 ABG pO2 79 mmHg (85-104) L 07/12/18 10:59 ABG O2 Saturation 96 % (95-98) 07/12/18 10:59 PT/INR, D-dimer PT 12.6 Seconds (9.4-12.1) H 07/13/18 10:10 Consult Discharge Plan - Plan Referrals: Pam Campbell DO [Resident] - 07/19/18 10:20 am
[2018-07-15] MEDS: Ketorolac 30 MG/ML VIAL IVP PRN ×2 (08:30→15:55)
[2018-07-15] MEDS: Thiamine (B-1) 100 MG TABLET PO SCH (08:30)
[2018-07-15] MEDS: predniSONE 20 MG TABLET PO SCH (08:30)
[2018-07-15] MEDS: Budesonide/Formoterol 160/4.5 1 PUFF INH IH SCH (10:34)
[2018-07-15 11:06] LABS: Anaplasma phagocytophilum IgG <1:80 (<1:80); Anaplasma phagocytophilum IgM < 1:16 (< 1:16)
--- NOTE | 2018-07-15 11:33 | Infectious Disease Progress No ---
ID Progress Note Date of Encounter: 07/15/18 Time of Encounter: 10:05 - Subjective Subjective: Patient seen and examined. No acute events overnight. Patient resting quietly in bed. Denies acute complaints. Denies fevers, chills, rigors. Denies headache or neck pain. Reports lower back pain that is chronic for him and bilateral shoulder pain improved since getting oral pain medication. Continues to report some weakness in the bilateral upper extremities, left greater than right. He states the right-sided facial droop is about the same. Denies nausea, vomiting, diarrhea, constipation. Had a BM this morning. Denies abdominal pain or urinary complaints. States his appetite is good. Denies oral thrush or skin lesions. States he wants to go home. - Objective CBC & Chem 7: 07/15/18 05:16 07/15/18 05:16 - Exam Vitals: Temp Pulse Resp BP Pulse Ox 98.2 F 105 14 143/82 94 07/15/18 07:15 07/15/18 07:15 07/15/18 10:34 07/15/18 07:15 07/15/18 10:34 Exam: Head: Atraumatic, normal inspection, normocephalic. Eye: EOMI, PERRLA, no scleral icterus noted. ENT: Mucous membranes moist. No odontogenic infection noted. Neck: Normal inspection, no meningismus. Supple, nontender. Respiratory: Faint expiratory wheezes noted to the left upper and left lower lobes. No rales, respiratory distress, rhonchi noted. Cardiovascular: Regular rate and rhythm, S1 and S2 audible. No murmurs, rubs, or gallops. GI: Soft, nondistended, normal bowel sounds. Extremities: No joint swelling, pedal edema noted. Tenderness noted with palpation of the bilateral shoulders and upper arms. Back: Normal inspection. No vertebral tenderness noted. Neurological: Alert, oriented 3, weakness noted to the bilateral upper extremities, left greater than right. Right-sided facial droop persists, unchanged. Psychiatric: normal affect, normal mood. Skin: Dry, intact, warm. Normal color. No rashes. - Assessment and Plan (1) Leukocytosis Current Visit: Yes Status: Acute WBC elevated on admission: Steroid-related versus malignancy. 4% bands with 16% blasts noted on CBC. Cytology revealed abnormal myeloid blasts. Hem/Onc consulted. Status post BMBx 07/13/18. Results pending. Qualifiers: Leukocytosis type: bandemia Qualified Code(s): D72.825 - Bandemia SNOMED Code(s): 615461565, 738967094 (2) Mediastinal mass Current Visit: Yes Status: Acute CTA of the chest showed redemonstration of an enlarged AP window lymph node, similar when compared to previous exams that is, however, new when compared to more remote examinations. Although this could be reactive, neoplasm is of concern. Etiology: Unclear. Concern for malignancy given the patient's abnormalities on his CBC and differential and peripheral smear. Does not appear infectious however. Pulmonology consult and following. SNOMED Code(s): 97391709 (3) Left arm weakness Current Visit: Yes Status: Acute Likely secondary to radial nerve palsy per ortho. Neurology consulted. Cervical spine MRI was a motion degraded exam, but did show multilevel degenerative thecal sac narrowing and neural foraminal stenosis. MRI of the left shoulder showed near-complete retracted full-thickness tear of the supraspinatus and essentially complete full-thickness tear of subscapularis with retraction of the fibers from the insertion. There is also suspected tearing of the posterior inferior labrum and suspected posterior labral apparently labile cyst suggesting underlying labral tearing with mild diffuse underlying labral degeneration. There is nonspecific marrow signal abnormality with relative sparing of the proximal left humeral epiphysis with differential considerations including red marrow Reconversion, myeloproliferative replacement disorders, or proliferative marrow disorders. Status post LP 07/13/18 that had 100 total neutrophil count with 85% lymphocytes, elevated glucose, and elevated protein. Clinically, the patient has no meningeal signs and I do not think this is infectious. SNOMED Code(s): 540355461 (4) Chinchilla's palsy Current Visit: Yes Status: Acute Completed course of oral Valtrex. Currently on steroids. Symptoms unchanged per patient report. SNOMED Code(s): 557872609 (5) COPD (chronic obstructive pulmonary disease) Current Visit: Yes Status: Chronic CTA of the chest negative for infectious etiology. Continues to have wheezing on exam. Supportive care per the primary team. Qualifiers: COPD type: unspecified COPD Qualified Code(s): J44.9 - Chronic obstructive pulmonary disease, unspecified SNOMED Code(s): 88615026 (6) Coronary artery disease Current Visit: No Status: Chronic Qualifiers: Coronary Disease-Associated Artery/Lesion type: [place] artery [place] vs. transplanted heart: [place] heart Associated angina: without angina Qualified Code(s): I25.10 - Atherosclerotic heart disease of [place] coronary artery without angina pectoris SNOMED Code(s): 84832340 (7) Hyperlipidemia Current Visit: No Status: Chronic Qualifiers: Hyperlipidemia type: mixed hyperlipidemia Qualified Code(s): E78.2 - Mixed hyperlipidemia SNOMED Code(s): 43493729 (8) Tobacco abuse Current Visit: No Status: Chronic SNOMED Code(s): 430520345 (9) Allergy to multiple antibiotics Current Visit: Yes Status: Acute Exact reaction not known (unable to obtain from patient). SNOMED Code(s): 942281573225914 - Recommendations Recommendations: Await blood cultures to finalize. Await findings from bone marrow biopsy. Await CSF studies. Further recommendations to follow from the hematology/oncology team. Left arm weakness workup and treatment per the neurology and orthopedics teams. Continue azithromycin 500 mg IV daily. Discontinue after last dose today to complete 5 day course. No further recommendations from the ID team. We will sign off. Please re-consult if needed. Consult Discharge Plan - Plan Referrals: Pam Campbell DO [Resident] - 07/19/18 10:20 am - Attending Attestation I have personally performed a face to face evaluation on this patient. I have reviewed and agree with the care plan. History and Exam by me shows: Assessment and plan: Mediastinal lymphadenopathy Left arm weakness with a tear of the infraspinatus tendon Dennis radial nerve palsy Concern for malignancy Pleocytosis Chinchilla's palsy Coronary artery disease Multiple drug allergies Recommendations: At this point I had a long discussion with Dr. Varela the supervisor packing. Patient's Chinchilla's palsy, having last on the peripheral smear and the abnormal flow cytometry also just that the patient has some kind of leukemia. ANDRE versus AML. That could explain the Chinchilla's palsy and the lymphadenopathy and the mediastinal window and even the pleocytosis. I do not believe the patient has any infection at this point. Patient is taken azithromycin for COPD exacerbation. We will continue to observe off antibiotics. No need to treat with antibiotics for the pleocytosis. Discussed with the hematology team. Concern for very aggressive lymphoma. Maybe Burkitt's lymphoma. Patient being transferred
--- NOTE | 2018-07-15 11:38 | Neurology Progress Note ---
<Josep Frazier - Last Filed: 07/15/18 11:36> Date of Encounter: 07/15/18 Time of Encounter: 11:36 Assessment and Plan (1) Left arm weakness Current Visit: Yes Status: Acute p/w complaints of multifocal weakness most notably in bilateral upper extremities (R>L). Left arm weakness multifactorial: Findings of complete retracted full-thickness tear of supraspinatus, complete full-thickness tear of the subscapularis with retraction and mild infraspinatus tendinopathy with moderate atrophy of the subscapularis and suspected tearing of the posterior inferior labrumL; however, these findings are chronic and acute LUE weakness likely further exacerbated by underlying myeloproliferative versus autoimmune inflammatory neuropathy. Clinically, no acute change in condition overnight, no new neurological deficits found. Paraneoplastic workup is pending as well as cytology of CSF. Further recommendations to be made when these are resulted. Otherwise, continue his medical and supportive care, neurology will continue to follow. (2) Chinchilla's palsy Current Visit: Yes Status: Acute Subjective Principal diagnosis: Left arm weakness Interval history: The patient was seen and examined at the bedside today. No acute changes or events overnight. Currently, he is resting comfortably in bed and his only complaints are of bilateral shoulder discomfort left greater than right. No new neurological deficits overnight. Today he is reporting his weakness is about the same, etiology still remains unclear but we are considering an inflammatory autoimmune neuropathy versus myeloproliferative disorder with a paraneoplastic syndrome. Objective - Constitutional Vitals: Temp Pulse Resp BP Pulse Ox 98.2 F 105 14 143/82 94 07/15/18 07:15 07/15/18 07:15 07/15/18 10:34 07/15/18 07:15 07/15/18 10:34 Exam: Examination: General Examination: *CONSTITUTIONAL: Alert and oriented x3, calm, cooperative no acute distress *GENERAL APPEARANCE OF PATIENT ill appearing elderly male *EYES: pupils equal, round, reactive to light and accommodation, conjunctiva clear without masses or ulcerations, fundi normal. *CARDIOVASCULAR no peripheral edema, distal temperature normal, dorsalis pedis pulses normal. see vitals Musculoskeletal: *GAIT AND STATION deferred *ASSESSMENT OF MUSCLE STRENGTH IN THE UPPER AND LOWER EXTREMITIES right deltoid, bicep, tricep, invoice classification clerk strength, bilateral hip flexors ,anterior tibialis, dorsoflexion of the foot 5/5. Left deltoid, & tricep 2/5 strength with left wrist drop; right bicep and invoice classification clerk strength 3/5, *MUSCLE TONE IN THE UPPER AND LOWER EXTREMITIES normal. No abnormal movements, fasciculations or atrophy identified. Neurological: *ORIENTATION to person, situation, time and place *RECURRENT AND REMOTE MEMORY intact *ATTENTION AND CONCENTRATION are normal *LANGUAGE FUNCTION no significant aphasia or dysarthia was noted. *FUND OF KNOWLEDGE aware of current events, past history, vocabulary *MENTAL attention span and concentration normal. *CN II optic fundi were normal, no papilledema noted. *CN III,IV, PERRLA extraocular eye movements were full, no nystagmus. Right eye ptosis present *CN V shows normal sensation and jaw opens asymmetrically with right mouth droop; recent diagnosis of Chinchilla's palsy *CN VII shows abnormal facial movement; right mouth droop with right eye ptosis upper and lower bilaterally. *CN VIII shows no significant hearing loss on exam *CN IX,,X palate elevated symmetrically *CN XI asymmetrical strength in the sternocleidomastoid muscles with right SCM stronger than left, asymmetrical shoulder shrugging. *CN XII tongue protruded in the midline, with normal strength and m ovement. *SENSORY EXAMINATION light touch intact *REFLEXES: deep tendon reflexes continue to be diminished diffusely, no pathological reflexes were noted. *CEREBELLAR TESTING normal finger to nose with right arm, abnormal with left due to arm weakness *PAIN LEVEL persistent left shoulder and arm pain Results - Laboratory Findings CBC and BMP: 07/15/18 05:16 07/15/18 05:16 Abnormal lab findings: Abnormal lab results WBC 11.9 K/mcL (4.3-11.1) H 07/15/18 05:16 RBC 2.83 M/mcL (4.19-5.50) L 07/15/18 05:16 Hgb 8.5 g/dL (12.9-16.9) L 07/15/18 05:16 Hct 25.7 % (37.5-50.1) L 07/15/18 05:16 RDW 15.0 % (11.5-14.5) H 07/15/18 05:16 Plt Count 41 K/mcL (140-400) L 07/15/18 05:16 MPV 8.9 fL (9.4-12.4) L 07/13/18 10:10 15.0 % (0-4) H 07/14/18 05:59 2.0 % (0) H 07/15/18 05:16 10.0 % (0) H 07/15/18 05:16 1.0 % (0) H 07/14/18 05:59 16.0 % (0) H 07/15/18 05:16 9.0 K/mcL (1.6-8.9) H 07/12/18 12:08 0.5 K/mcL (0.6-4.6) L 07/12/18 12:08 1.6 K/mcL (0.0-1.3) H 07/12/18 01:19 0.7 K/mcL (0.0-0.6) H 07/11/18 14:59 Nucleated RBCs/100 WBC 4.4 /100 WBC (0) H 07/15/18 05:16 Present (Not Present) A 07/12/18 01:19 Marked Decrease (Normal) L 07/15/18 05:16 1+ (Not Present) A 07/15/18 05:16 1+ (Not Present) A 07/14/18 05:59 Percent Retic 2.9 % (1.6-2.8) H 07/12/18 12:08 Retic Hgb Equivalent 37.2 pg (28.61-36.33) H 07/12/18 12:08 252 mg/dL (30-200) H 07/12/18 12:08 PT 12.6 Seconds (9.4-12.1) H 07/13/18 10:10 APTT 21.5 Seconds (26.0-36.0) L 07/12/18 01:19 ABG pO2 79 mmHg (85-104) L 07/12/18 10:59 Sodium 133 mEq/L (136-145) L 07/12/18 01:19 Potassium 3.4 mEq/L (3.5-5.1) L 07/12/18 11:30 Chloride 95 mEq/L (98-107) L 07/15/18 05:16 Carbon Dioxide 31 mEq/L (23-29) H 07/15/18 05:16 BUN 28 mg/dL (8-23) H 07/14/18 05:59 0.59 mg/dL (0.70-1.30) L 07/15/18 05:16 32 (6-26) H 07/15/18 05:16 Glucose 59 mg/dL (70-105) L 07/15/18 05:16 POC Glucose 125 mg/dL (70-99) H 07/14/18 21:29 278 (280-300) L 07/11/18 14:59 Lactic Acid 2.4 mmol/L (0.5-2.2) H 07/12/18 07:06 9.9 mg/dL (2.3-7.6) H 07/15/18 08:56 Phosphorus 1.7 mg/dL (2.7-4.5) L 07/15/18 08:56 > 1500 ng/mL (20-250) H 07/13/18 10:10 AST 43 Units/L (13-39) H 07/15/18 05:16 2104 Units/L (140-271) H 07/12/18 11:30 41 mg/L (Less than 10) H 07/11/18 14:59 5.4 g/dL (6.4-8.9) L 07/15/18 05:16 1.7 g/dL (2.4-3.5) L 07/15/18 05:16 Triglycerides 213 mg/dL (< 150) H 07/13/18 10:10 VLDL Cholesterol, Calc 43 mg/dL (< 31) H 07/13/18 10:10 27 mg/dL (40-59) L 07/13/18 10:10 5.7 (0-4.9) H 07/13/18 10:10 Ur Specific [place] > 1.030 (1.010-1.025) H 07/11/18 17:30 30 mg/dL (Neg-Trace) H 07/11/18 17:30 Ur Squamous Epith Cells Moderate per lpf (None-Few) H 07/11/18 17:30 CSF Tot Nucleated Cells 110 TNC/mcL (0-5) H* 07/13/18 13:40 80 mg/dL (40-70) H 07/13/18 13:40 108 mg/dL (15-45) H 07/13/18 13:40 Consult Discharge Plan - Plan Referrals: Pam Campbell DO [Resident] - 07/19/18 10:20 am <Amadeo Marquez - Last Filed: 07/15/18 15:24> Date of Encounter: 07/15/18 Assessment and Plan (1) Left arm weakness Current Visit: Yes Status: Acute I have personally performed a [id number] assessment of the patient and have reviewed the PA/ENGINEERING TECHNICIAN note. My impressions are as follows: I agree with the assessment and plan documented by the RUG SETTER AXMINSTER as above. I like to add however that the CSF cytology analysis was negative for malignant cells however does reveal numerous mature lymphocytes and monocytes. However the false negative rate for identifying malignant cells in the CSF can be high. I will therefore order an immunoelectrophoresis and protein electrophoresis on the CSF specimen. Other paraneoplastic markers are yet pending. Case will be signed out to Dr. Dumont for further assessment. (2) Chinchilla's palsy Current Visit: Yes Status: Acute Subjective Interval history: Chart was reviewed, patient was seen and examined independently. Case was discussed with the RUG SETTER AXMINSTER. The cytology analysis of the CSF specimen revealed which were lymphocytes and monocytes, however no malignant cells. However, there is a fairly high incidence of falls and negatives in this scenario. Objective - Constitutional Vitals: Temp Pulse Resp BP Pulse Ox 98.1 F 99 18 129/71 91 07/15/18 11:48 07/15/18 11:48 07/15/18 11:48 07/15/18 11:48 07/15/18 11:48 Exam: I have personally performed a [id number] assessment of the patient and have reviewed the PA/ENGINEERING TECHNICIAN note. My impressions are as follows: I agree with the examination documented as above by Josep. Results - Laboratory Findings CBC and BMP: 07/15/18 05:16 07/15/18 05:16 Abnormal lab findings: Abnormal lab results WBC 11.9 K/mcL (4.3-11.1) H 07/15/18 05:16 RBC 2.83 M/mcL (4.19-5.50) L 07/15/18 05:16 Hgb 8.5 g/dL (12.9-16.9) L 07/15/18 05:16 Hct 25.7 % (37.5-50.1) L 07/15/18 05:16 RDW 15.0 % (11.5-14.5) H 07/15/18 05:16 Plt Count 41 K/mcL (140-400) L 07/15/18 05:16 MPV 8.9 fL (9.4-12.4) L 07/13/18 10:10 15.0 % (0-4) H 07/14/18 05:59 2.0 % (0) H 07/15/18 05:16 10.0 % (0) H 07/15/18 05:16 1.0 % (0) H 07/14/18 05:59 16.0 % (0) H 07/15/18 05:16 9.0 K/mcL (1.6-8.9) H 07/12/18 12:08 0.5 K/mcL (0.6-4.6) L 07/12/18 12:08 1.6 K/mcL (0.0-1.3) H 07/12/18 01:19 0.7 K/mcL (0.0-0.6) H 07/11/18 14:59 Nucleated RBCs/100 WBC 4.4 /100 WBC (0) H 07/15/18 05:16 Present (Not Present) A 07/12/18 01:19 Marked Decrease (Normal) L 07/15/18 05:16 1+ (Not Present) A 07/15/18 05:16 1+ (Not Present) A 07/14/18 05:59 Percent Retic 2.9 % (1.6-2.8) H 07/12/18 12:08 Retic Hgb Equivalent 37.2 pg (28.61-36.33) H 07/12/18 12:08 252 mg/dL (30-200) H 07/12/18 12:08 PT 12.6 Seconds (9.4-12.1) H 07/13/18 10:10 APTT 21.5 Seconds (26.0-36.0) L 07/12/18 01:19 ABG pO2 79 mmHg (85-104) L 07/12/18 10:59 Sodium 133 mEq/L (136-145) L 07/12/18 01:19 Potassium 3.4 mEq/L (3.5-5.1) L 07/12/18 11:30 Chloride 95 mEq/L (98-107) L 07/15/18 05:16 Carbon Dioxide 31 mEq/L (23-29) H 07/15/18 05:16 BUN 28 mg/dL (8-23) H 07/14/18 05:59 0.59 mg/dL (0.70-1.30) L 07/15/18 05:16 32 (6-26) H 07/15/18 05:16 Glucose 59 mg/dL (70-105) L 07/15/18 05:16 POC Glucose 103 mg/dL (70-99) H 07/15/18 11:52 278 (280-300) L 07/11/18 14:59 Lactic Acid 2.4 mmol/L (0.5-2.2) H 07/12/18 07:06 9.9 mg/dL (2.3-7.6) H 07/15/18 08:56 Phosphorus 1.7 mg/dL (2.7-4.5) L 07/15/18 08:56 > 1500 ng/mL (20-250) H 07/13/18 10:10 AST 43 Units/L (13-39) H 07/15/18 05:16 2104 Units/L (140-271) H 07/12/18 11:30 41 mg/L (Less than 10) H 07/11/18 14:59 5.4 g/dL (6.4-8.9) L 07/15/18 05:16 1.7 g/dL (2.4-3.5) L 07/15/18 05:16 Triglycerides 213 mg/dL (< 150) H 07/13/18 10:10 VLDL Cholesterol, Calc 43 mg/dL (< 31) H 07/13/18 10:10 27 mg/dL (40-59) L 07/13/18 10:10 5.7 (0-4.9) H 07/13/18 10:10 Ur Specific [place] > 1.030 (1.010-1.025) H 07/11/18 17:30 30 mg/dL (Neg-Trace) H 07/11/18 17:30 Ur Squamous Epith Cells Moderate per lpf (None-Few) H 07/11/18 17:30 CSF Tot Nucleated Cells 110 TNC/mcL (0-5) H* 07/13/18 13:40 80 mg/dL (40-70) H 07/13/18 13:40 108 mg/dL (15-45) H 07/13/18 13:40
[2018-07-15] MEDS ORDERED: Artificial Tears SOLN 15 ML BOTTLE BOTH EYES PRN (12:28)
--- NOTE | 2018-07-15 13:23 | Oncology Inp Progress Note ---
<Seema Seth L - Last Filed: 07/15/18 16:36> Date of Encounter: 07/15/18 Time of Encounter: 13:45 (1) Thrombocytopenia Status: Acute Assessment and plan: Patient now represents for bilateral upper extremity weakness (L>R) and shoulder pain. Now presents with neutrophil predominant leukoocytosis ( has also been on steroids for COPD exacerbation) as well as anemia and continued thrombocytopenia Peripheral flow reveals abnormal myeloid blast cell population, Peripheral smear reveals 4% blasts LDH is significantly elevated at ~2000 PSA normal Status post lumbar puncture ordered by neurology, cytology is negative, flow cytometry for CSF has been sent to [facility] and is currently pending bcr abl, calr exon 19, haptoglobin, JAK2 and MPL codon--- pending Plan: Discussed preliminary bone marrow biopsy results with [facility] pathology which was initially revealing a packed marrow with high number of blasts concerning for acute leukemia however immunostains were pending at that time. This was discussed with patient and family as well as hospitalist and recommendation for transfer to [facility] was made at that time. I received a follow-up call from [facility] pathology and immunostains were positive for some B-cell markers, at this time high-grade B-cell lymphoma is also within differential. We are awaiting further immunostains which will not result until Wednesday. Transfer to [facility] is still recommended at this time as he will still require initiation of inpatient treatment (2) Left arm weakness Status: Acute Assessment and plan: [place] MRI with multiple findings to explain patients LUE weakness and limited ROM [id number] retracted full-thickness tear of supraspinatus, essentially a complete full-thickness tear of the subscapularis with retraction, mild infraspinatus tendinopathy, moderate atrophy of the subscapularis. Suspected tearing of the posterior inferior labrum. Moderate glenohumeral chondromalacia. Nonspecific marrow signal abnormality with sparing of the right minimal left humeral epiphysis. Oncology: Subj Interval history: No acute events noted overnight. Discussed with patient and family at bedside that preliminary pathology report showing marrow packed with blast cells initially concerning for an acute leukemia process. Following repeat call from [facility] pathology he is staining for B-cell markers and this may also be concerning for high-grade B-cell lymphoma. Further immunostains are needed for definitive diagnosis. He would be best served as a tertiary care center and this was discussed with patient and family who are in agreement for transfer to [facility]'s aware of plan and at bedside during conversation. - Constitutional General appearance: cooperative, no acute distress, no febrile - Head Head exam: Present: atraumatic - Eye Additional comments: Right eye ptosis and right-sided facial droop - ENT ENT exam: Present: mucous membranes moist, normal oropharynx - Respiratory Respiratory exam: Present: decreased breath sounds, wheezes. Absent: respiratory distress - Cardiovascular Cardiovascular exam: Present: RRR - GI/Abdominal GI/Abdominal exam: Present: normal bowel sounds, soft. Absent: tenderness - Extremities Exam Additional comments: Bilateral upper extremity weakness with decreased range of motion to bilateral shoulders, left greater than right. - Neurological Exam Neurological exam: Present: alert, oriented X3 - Psychiatric Psychiatric exam: Present: normal affect, normal mood - Skin Skin exam: Present: dry, intact, normal color, warm Oncology: Obj Data - Labs CBC & Chem 7: 07/15/18 05:16 07/15/18 05:16 Consult Discharge Plan - Plan Referrals: Pam Campbell DO [Resident] - 07/19/18 10:20 am Inpatient Charges Provider: Dr. Yamini Watts <Minh Watts - Last Filed: 07/15/18 20:05> Date of Encounter: 07/15/18 Oncology: Subj Interval history: Patient was seen and examined this a.m. prior to preliminary pathology results. Acute/subacute neurologic event, high grade B-cell neoplasm, will refer patient to [facility] heme for further recommendations on treatment. I examined this patient and my medical decision-making was reviewed with the Advanced Practice Nurse, Seema Seth. I agree with the documented findings, disposition and treatment plan as described except to the extent set forth below. Oncology: Obj Data - Labs CBC & Chem 7: 07/15/18 05:16 07/15/18 05:16 Inpatient Charges Provider: Dr. Yamini Watts Follow up - Inpatient: [id number]
[2018-07-15] MEDS ORDERED: SODIUM CHLORIDE 0.9% IVPB STA (14:35)
[2018-07-15] MEDS ORDERED: RASBURICASE IVPB STA (14:35)
[2018-07-15 15:47] VITALS: BP 129/83
--- NOTE | 2018-07-15 16:27 | Discharge Summary ---
<Amadeo Beyer - Last Filed: 07/15/18 16:48> Date of Encounter: 07/15/18 Time of Encounter: 08:45 Hospital course: Dear Doctors, I recently had the opportunity to care for this patient during their recent hospital stay at [facility]. Mr. Lobo is a 58yo man with history of COPD, HLD, HTN and recent hospitalization for abdominal pain with thrombocytopenia. The patient has also been recently diagnosed with Chinchilla's palsy. The patient presented at the time of admission with bilateral shoulder pain and left sided upper extremity weakness. Mr. Lobo was familiar to our service from his prior admission on 06/26/18, at which time he presented with abdominal pain, thrombocytopenia, bandemia and lactic acidosis. At that time, he also complained of some musculoskeletal pains, and we worked up both abdominal pathology and infectious causes including tick born infections and found no evidence of either. He did have some evidence of a pneumonia, which was treated. He did have a Hematology/Oncology consult for concern about potential malignancy, however he was scheduled for outpatient follow-up Mr. Lobo returned to [facility] on 07/11/18 with new complaint of left sided upper extremity weakness and b/l shoulder pain, along with shortness of breath and generalized malaise. In his time since previous discharge he had been diagnosed with Chinchilla's palsy, and had completed a course of PO prednisone and famcyclovir. At this time, he was again found to have a bandemia (16), thrombocytopenia (71), myelocytes (8), promyelocyes (4), and blast cells (4). The patient was again found to have a lactic acidosis, but again remained afebrile. In the first day of admission, the patient's respiratory status drastically decreased, largely due to neuromuscular fatigue, and there was concern that he may require intubation however he recovered quickly with steroids. He underwent evaluation by neurology, infectious disease, pulmonology, and hematology and oncology. The patient had an MRI of his brain which showed no acute infarct however did demonstrate diffuse bone marrow changes. He would later have a shoulder MRI that further demonstrated diffuse bone marrow changes. The patient also had full muscle tears of multiple rotator cuff muscles with tendinopathies present, however no intervention recommended by orthopedic surgery apart from occupational therapy and wrist/finger extension splint. The patient had a myriad of an infectious panel workup, and those that have resulted thus far have remained negative. He also had a lumbar puncture which showed significant WBCs of primarily lymphocytic origin. Per neurology, autoimmune and inflammatory labs were ordered and remained pending, however paraneoplastic syndrome remained at the top of the differential. Each day, the patient did have further development of immature WBCs in his blood. Due to the growing concern for malignancy by the primary team and by Heme/Onc, the patient underwent bone marrow biopsy which was sent to [facility] for pathology. We did receive report that the sample indicates Acute leukemia vs. High grade lymphoma process, and have initiated transfer to [facility] at this time for further evaluation and treatment. Dx: Acute leukemia vs high grade lymphoma Pertinent tests/consults: Bone marrow biopsy, final report pending. Peripheral smear, 4% blast cells Follow up: Treatment to be initiated at the [facility] Tests pending: See full list of pending orders and tests below Med changes: Patient has been on Prednisone 60mg Mental status: awake, fully oriented. Listless Neurological changes: Chinchilla's palsy on arrival affecting right face. Right eye ptosis, right mouth droop. 3-4/5 strength in Left upper extremity. 5/5 Left lower extremity. Code status: Full code, okay with short term intubation only. Time spent on discharge: 35 minutes It has been my pleasure participating in this patient's care. Please contact me with any questions or concerns regarding their hospital stay. Sincerely, Amadeo Beyer, DO Pending orders 07/12/18 09:09 Babesia Microti IgG & IgM Routine 07/12/18 12:08 BCR-ABL1t(9;22)Diag,Rflx Quant Stat CALR Exon 9 Mutation Stat JAK2 (V617F) Mutation by PCR Stat JAK2 EXON 12 Mut non-V617F Stat MPL codon 515 Mut-PeripheralBl Stat 07/12/18 15:42 JESSICA,CSF Routine 07/12/18 17:01 Immunoelectrophoresis Routine Paraneoplastic Abs (PCCA/OMID) Routine 07/13/18 10:10 GM 1 Antibody Panel Routine [facility] Glycoprotein IgM Routine Miscellaneous Lab Test Routine Miscellaneous Lab Test Routine 07/13/18 11:24 Cytology [PTH] Routine 07/13/18 11:26 Miscellaneous Lab Test Routine 07/13/18 13:40 Cryptococcal Antigen [MYC] Routine Fungal Culture [MYC] Routine 07/13/18 14:20 Bone Marrow, Flow & Cytogen Routine 07/13/18 17:25 Heavy Metals Profile AM 0400 07/14/18 08:22 Culture,CSF [RM] Stat 07/15/18 15:12 Immunoelectrophoresis Routine 07/15/18 15:18 Protein Electrophoresis Routine Assessments (1) Thrombocytopenia Current Visit: Yes Status: Acute (2) Suspected Hematologic Malignancy Current Visit: Yes Status: Acute (3) Left arm weakness Current Visit: Yes Status: Acute (4) Chinchilla's palsy Current Visit: Yes Status: Acute (5) COPD Current Visit: Yes Status: Chronic (6) Hypertension Current Visit: No Status: Chronic (7) Shoulder pain Current Visit: Yes Status: Acute (8) Mediastinal mass Current Visit: Yes Status: Acute (9) Elevated lactic acid level Current Visit: Yes Status: Acute (10) Hyperlipidemia Current Visit: No Status: Chronic (11) GERD (gastroesophageal reflux disease) Current Visit: No Status: Chronic (13) Acute respiratory failure Current Visit: Yes Status: Acute Discharge discussed with: patient, family, nurse, case management, safety consultant - Time Spent with Patient Total time spent providing and/or coordinating discharge services: - Discharge Medications Prescriptions: New Artificial Tears SOLN [Akwa Tears] 1 drop BOTH EYES QID PRN bottle PRN Reason: Dry Eye(S) Ketorolac [Toradol] 30 mg IVP Q6H PRN vial PRN Reason: Mild Pain predniSONE [PredniSONE] 60 mg PO DAILY tablet Continued Ipratropium/Albuterol Neb [Duoneb] 3 ml IH Q6H PRN #120 vial PRN Reason: Shortness Of Breath/Wheezing Albuterol Sulfate [Albuterol Inhaler] 2 puff IH Q4HR PRN #1 inhaler PRN Reason: Shortness Of Breath Aspirin Enteric Coated [Aspirin EC] 81 mg PO DAILY #30 tablet. Loratadine [Claritin] 10 mg PO DAILY #30 tablet Multivitamin [Daily Multiple Vitamin] 1 tab PO DAILY #30 tablet Isosorbide MONOnitrate (24 HR) [Imdur] 30 mg PO DAILY #30 tab.er.24h Metoprolol Tartrate 50 mg PO DAILY #30 tablet Acetaminophen [Pain Reliever] 500 mg PO Q6H PRN #120 tablet PRN Reason: Pain Omeprazole [PriLOSEC] 20 mg PO DAILY #30 capsule. Lisinopril/Hydrochlorothiazide [Zestoretic 20-25 mg Tablet] 1 tab PO DAILY #30 tablet Simvastatin [Zocor] 40 mg PO DAILY #30 tablet Home Medications: Acetaminophen [Pain Reliever] 500 mg PO Q6H PRN #120 tablet 06/29/18 [Rx] Albuterol Sulfate [Albuterol Inhaler] 2 puff IH Q4HR PRN #1 inhaler 06/29/18 [Rx] Aspirin Enteric Coated [Aspirin EC] 81 mg PO DAILY #30 tablet. 06/29/18 [Rx] Ipratropium/Albuterol Neb [Duoneb] 3 ml IH Q6H PRN #120 vial 06/29/18 [Rx] Isosorbide MONOnitrate (24 HR) [Imdur] 30 mg PO DAILY #30 tab.er.24h 06/29/18 [Rx] Lisinopril/Hydrochlorothiazide [Zestoretic 20-25 mg Tablet] 1 tab PO DAILY #30 tablet 06/29/18 [Rx] Loratadine [Claritin] 10 mg PO DAILY #30 tablet 06/29/18 [Rx] Metoprolol Tartrate 50 mg PO DAILY #30 tablet 06/29/18 [Rx] Multivitamin [Daily Multiple Vitamin] 1 tab PO DAILY #30 tablet 06/29/18 [Rx] Omeprazole [PriLOSEC] 20 mg PO DAILY #30 capsule. 06/29/18 [Rx] Simvastatin [Zocor] 40 mg PO DAILY #30 tablet 06/29/18 [Rx] Artificial Tears SOLN [Akwa Tears] 1 drop BOTH EYES QID PRN bottle 07/15/18 [Rx] Ketorolac [Toradol] 30 mg IVP Q6H PRN vial 07/15/18 [Rx] predniSONE [PredniSONE] 60 mg PO DAILY tablet 07/15/18 [Rx] Allergies/Adverse Reactions: Allergy/AdvReac Type Severity Reaction Status Date / Time doxycycline AdvReac See Verified 07/11/18 13:53 Comments Penicillins AdvReac Hives Verified 07/11/18 13:53 Sulfa (Sulfonamide AdvReac NOSE BLEEDS Verified 07/11/18 13:53 Antibiotics) tetracycline [Tetracycline] AdvReac Difficulty Verified 07/11/18 13:53 Breathing Date of admission: 07/11/18 21:03 Primary care physician: Conor Conley DO Consults: 07/11/18 23:01 Consult to Nurse Navigator [CONS] Routine Comment: 07/11/18 23:02 Consult to Neurology [CONS] Routine Consulting Provider: Neurology [facility] Reason for Consult: Recent diagnosis of Chinchilla's palsy now with left upper extremity pain and weakness Call Completed: No 07/11/18 23:03 Consult to Oncology [CONS] Routine Consulting Provider: [facility] Reason for Consult: Relatively new AP window lymph node concern for neoplasm. Call Completed: No 07/11/18 23:08 Consult to Infectious Diseases [CONS] Routine Consulting Provider: Infectious [facility] Reason for Consult: Concern for underlying infectious etiology of unclear so urce Call Completed: No 07/12/18 13:35 Consult to Pulmonology [CONS] Routine Consulting Provider: [facility]m [facility] Reason for Consult: Respiratory distress, high risk of resp failure Call Completed: Yes 07/13/18 08:00 Consult to Interventional Radiology [CONS] Routine Consulting Provider: Radiology [facility] Reason for Consult: Bone marrow bx and aspiration 07/13/2018 Call Completed: Yes 07/13/18 13:29 Consult to Orthopedic Surgery [CONS] Routine Consulting Provider: Phoenix Bajwa Reason for Consult: Multiple full thickness muscle tears right shoulder Call Completed: Yes Consult to Respiratory Therapy [CONS] Routine Reason for Consult: Acapella device Call Completed: No - Constitutional Vitals: Temp Pulse Resp BP Pulse Ox 98.3 F 95 18 129/83 94 07/15/18 15:46 07/15/18 15:46 07/15/18 15:46 07/15/18 15:46 07/15/18 15:46 Exam: Gen: Vitals noted. No acute distress today, very pleasant on exam. Eyes: anicteric sclerae, moist conjunctivae; Pupils equal and reactive to light HENT: Atraumatic; oropharynx clear with moist mucous membranes and no mucosal ulcerations; normal hard and soft palate Neck: Trachea midline; supple, no thyromegaly or lymphadenopathy Cardiac: RRR, no murmur, +S1/S2 Pulmonary: Diffuse wheezing noted b/l on exam however markedly improved from yesterday Abdomen: soft, nontender, no guarding. No masses or hepatosplenomegaly MSK: ROM intact, no joint swelling noted Extremities: 1+ BLE edema, nontender calf, no cyanosis or clubbing Skin: Normal temperature, turgor and texture; no rash, ulcers or subcutaneous nodules Neuro: Right sided facial droop and left sided lid lag noted. Left upper extremity strength 2/5. Left lower extremity strength 4/5. Reflexes intact 2/4 b/l. Psych: Appropriate mood and behavior. A&Ox3 - Patient Status Disposition: Transfer Other Condition: Serious Functional capacity at discharge: independent ambulation Overall status at discharge: patient is not back to baseline - Discharge Instructions Follow Up With: Pam Campbell DO [Resident] - 07/19/18 10:20 am - Diet and Activity Activity: increase activity as tolerated Diet: diabetic diet <Estuardo Najera - Last Filed: 07/15/18 17:56> Date of Encounter: 07/15/18 Date of admission: 07/11/18 21:03 Primary care physician: Conor Conley DO - Attending Attestation Patient seen and examined. I agree with the discharge plan as documented above by the resident. In summary, patient presented with shoulder pain and LUE weakness shortly after onset of R-sided Chinchilla's Palsy. He was hospitalized here two weeks ago with abdominal pain, SOB, and fever, treated for presumed PNA, and due to bandemia with some immature myeloid cells on diff had Heme see patient, peripheral flow sent prior to discharge. On presentation here for this admission, diff shows increased myeloid progenitor cells, and with focal neuro deficit, concern for malignant process with OR SCRUB TECH involvement. CTA head/neck and MRI brain unremarkable except for increased marrow signal, no infarct or masses seen in brain or c- spine. LP obtained which showed WBC 110 of which 85% lymphocytes, protein 108, cytology pending. LDH 2100, uric acid 9.9, ferritin >1500, INR 1.1, Cr 0.6, Hb 8.5, Plt 41. Bone marrow obtained 07/13 which prelim today shows acute leuk v high grade lymphoma, and will transfer to the [facility] for further management.
--- NOTE | 2018-07-15 16:44 | Discharge Summary ---
Date of Encounter: 07/15/18 Time of Encounter: 16:42 - Discharge Medications Prescriptions: No Action Ipratropium/Albuterol Neb [Duoneb] 3 ml IH Q6H PRN #120 vial PRN Reason: Shortness Of Breath/Wheezing Albuterol Sulfate [Albuterol Inhaler] 2 puff IH Q4HR PRN #1 inhaler PRN Reason: Shortness Of Breath Aspirin Enteric Coated [Aspirin EC] 81 mg PO DAILY #30 tablet. Loratadine [Claritin] 10 mg PO DAILY #30 tablet Multivitamin [Daily Multiple Vitamin] 1 tab PO DAILY #30 tablet Isosorbide MONOnitrate (24 HR) [Imdur] 30 mg PO DAILY #30 tab.er.24h Metoprolol Tartrate 50 mg PO DAILY #30 tablet Acetaminophen [Pain Reliever] 500 mg PO Q6H PRN #120 tablet PRN Reason: Pain Omeprazole [PriLOSEC] 20 mg PO DAILY #30 capsule. Lisinopril/Hydrochlorothiazide [Zestoretic 20-25 mg Tablet] 1 tab PO DAILY #30 tablet Simvastatin [Zocor] 40 mg PO DAILY #30 tablet Home Medications: Acetaminophen [Pain Reliever] 500 mg PO Q6H PRN #120 tablet 06/29/18 [Rx] Albuterol Sulfate [Albuterol Inhaler] 2 puff IH Q4HR PRN #1 inhaler 06/29/18 [Rx] Aspirin Enteric Coated [Aspirin EC] 81 mg PO DAILY #30 tablet. 06/29/18 [Rx] Ipratropium/Albuterol Neb [Duoneb] 3 ml IH Q6H PRN #120 vial 06/29/18 [Rx] Isosorbide MONOnitrate (24 HR) [Imdur] 30 mg PO DAILY #30 tab.er.24h 06/29/18 [Rx] Lisinopril/Hydrochlorothiazide [Zestoretic 20-25 mg Tablet] 1 tab PO DAILY #30 tablet 06/29/18 [Rx] Loratadine [Claritin] 10 mg PO DAILY #30 tablet 06/29/18 [Rx] Metoprolol Tartrate 50 mg PO DAILY #30 tablet 06/29/18 [Rx] Multivitamin [Daily Multiple Vitamin] 1 tab PO DAILY #30 tablet 06/29/18 [Rx] Omeprazole [PriLOSEC] 20 mg PO DAILY #30 capsule. 06/29/18 [Rx] Simvastatin [Zocor] 40 mg PO DAILY #30 tablet 06/29/18 [Rx] Allergies/Adverse Reactions: Allergy/AdvReac Type Severity Reaction Status Date / Time doxycycline AdvReac See Verified 07/11/18 13:53 Comments Penicillins AdvReac Hives Verified 07/11/18 13:53 Sulfa (Sulfonamide AdvReac NOSE BLEEDS Verified 07/11/18 13:53 Antibiotics) tetracycline [Tetracycline] AdvReac Difficulty Verified 07/11/18 13:53 Breathing Date of admission: 07/11/18 21:03 Primary care physician: Conor Conley DO Consults: 07/11/18 23:01 Consult to Nurse Navigator [CONS] Routine Comment: 07/11/18 23:02 Consult to Neurology [CONS] Routine Consulting Provider: [facility] Reason for Consult: Recent diagnosis of Chinchilla's palsy now with left upper extremity pain and weakness Call Completed: No 07/11/18 23:03 Consult to Oncology [CONS] Routine Consulting Provider: [facility] Reason for Consult: Relatively new AP window lymph node concern for neoplasm. Call Completed: No 07/11/18 23:08 Consult to Infectious Diseases [CONS] Routine Consulting Provider: [facility] Reason for Consult: Concern for underlying infectious etiology of unclear source Call Completed: No 07/12/18 13:35 Consult to Pulmonology [CONS] Routine Consulting Provider: [facility] Reason for Consult: Respiratory distress, high risk of resp failure Call Completed: Yes 07/13/18 08:00 Consult to Interventional Radiology [CONS] Routine Consulting Provider: Radiology [facility] Reason for Consult: Bone marrow bx and aspiration 07/13/2018 Call Completed: Yes 07/13/18 13:29 Consult to Orthopedic Surgery [CONS] Routine Consulting Provider: [facility] Bajwa Reason for Consult: Multiple full thickness muscle tears right shoulder Call Completed: Yes Consult to Respiratory Therapy [CONS] Routine Reason for Consult: Acapella device Call Completed: No - Constitutional Vitals: Temp Pulse Resp BP Pulse Ox 98.3 F 95 16 129/83 90 07/15/18 15:46 07/15/18 15:46 07/15/18 15:53 07/15/18 15:46 07/15/18 15:53 General appearance: Present: mild distress (from shoulder pain) - Patient Status Condition: Fair - Discharge Instructions Follow Up With: Pam Campbell DO [Resident] - 07/19/18 10:20 am
[2018-07-15] MEDS ORDERED: *HR* OxyCODONE Immed Rel 5 MG TABLET PO ONE (18:44)
[2018-07-15 21:47] LABS: BCR-ABL1 Specimen Source NOT SPECIFIED
[2018-07-16 04:47] LABS: Alpha 2 Globulin (PEP) 0.86 g/dL (0.48-1.05); Beta Globulin (PEP) 0.61 g/dL (0.48-1.10)
[2018-07-17 09:10] LABS: Immunoglobulin A 11 mg/dL (68-408); Immunoglobulin G 311 mg/dL (768-1632); Immunoglobulin M 11 mg/dL (35-263)
[2018-07-17 09:11] LABS: IFE Reflexed IFE Done
[2018-07-17 09:18] LABS: Purkinje Cell/ANNA IgG Scrn NONE DETECTED (None Detected)
[2018-07-17 09:25] LABS: JAK2 (V617F) Mutation by PCR NOT DETECTED
[2018-07-17 10:21] LABS: Myelin Assoc Glycoprotein IgM 6 TU (0-999)
[2018-07-17 10:51] LABS: Arsenic <10.0 ug/L (0.0-12.0); Cadmium 1.8 ug/L (0.0-5.0); Mercury <2.5 ug/L (0.0-10.0)
[2018-07-18 09:31] LABS: MPL codon 515 Mut-PeripheralBl NOT DETECTED
[2018-07-20 10:58] LABS: CALR Exon 9 Mutation Result NOT DETECTED
== END 2018-07-15 19:58 | disposition short-term general hospital (02) | DRG 834 ==
LOC: 3BNU 13:41 → EMEROOARM 13:41 → 3BNU 19:56 → SUATTDRO 21:03 → 2ANU 07-12 13:00
PROVIDERS: ADMIT Internal Medicine Nephrology; ATTEND Internal Medicine